=== PATIENT | female | born 1945 | race Caucasian/White ===

== ENCOUNTER → 2017-12-15 | Outpatient (CLI) | payer BC ==
[~2017-12-15] MED LIST: HYG25 PO
== END | disposition home or self-care (01) ==
LOC: C.MAMM 11:05
PROVIDERS: ATTEND Family Medicine
DX: M85.88 Other specified disorders of bone density and structure, other site (principal)

== ENCOUNTER 2021-07-13 11:51 | Observation (INO) ==
--- NOTE | 2021-07-13 12:05 | Emergency Department Note ---
Impression & Plan TIA (transient ischemic attack), Slurring of speech ED Provider Note NAME: ARCHANA VALLE AGE: 75 SEX: F : 1945 ARRIVES VIA: Ambulance INFORMANT: Patient, ED PROVIDER(S): Armando Montalvo DO CHIEF COMPLAINT: Slurred speech HPI: Patient is a 75-year-old female who presents ER for slurred speech. She was talking on the phone with her nephew when she had trouble getting her words out. The few notes all her words were slurred and she could not get out when she went to say. This lasted for about 15 to 20 minutes. Her symptoms have resolved. She denies any headache or change in vision. No chest pain or shortness of breath. No nausea vomiting or diarrhea. No dysuria urgency or frequency. No weakness or numbness. No other exacerbating or remitting factors. She never had this before. She did take an aspirin today. ROS: See above HPI for pertinent positives & negatives. A total of 10 systems reviewed and were otherwise negative. PAST MEDICAL HISTORY:See Below PAST SURGICAL HISTORY:See Below FAMILY HISTORY:See Below SOCIAL HISTORY:See Below HOME MEDICATIONS:See Below ALLERGIES:See Below VITALS:See Below PHYSICAL EXAMINATION: GENERAL: Sitting up in bed, alert, well appearing, well nourished, no distress, non-toxic EYE EXAM: normal conjunctiva. PERRL and EOM's grossly intact. OROPHARYNX: no exudate, no erythema, lips, buccal mucosa, and tongue normal and mucous membranes are moist NECK: supple, no nuchal rigidity, no adenopathy, non-tender LUNGS: Clear to auscultation. Normal chest wall mechanics HEART: no murmurs, S1 normal and S2 normal ABDOMEN: abdomen soft, non-tender, normo-active bowel sounds, no masses, no rebound or guarding. BACK: Back is symmetrical on inspection and there is no deformity, no midline tenderness, no CVA tenderness. SKIN: no rashes and no bruising UPPER EXTREMITIES: upper extremities are grossly normal. LOWER EXTREMITIES: No pitting edema. NEURO EXAM: Normal sensorium, cranial nerves II-XII intact, normal speech, no weakness of arms, no weakness of legs. No drift. Finger to nose intact. Gross sensation intact. MEDICAL DECISION MAKING: Patient is a 75-year-old female who presents the ER for slurred speech which lasted for about 15 to 30 minutes. Spoke back to baseline. NIH is 0. IV was established blood work was obtained. Labs show no significant leukocytosis or anemia. BMP along with LFTs bilirubin was unremarkable. Troponin was negative. CT head as well as angios of the head and neck were negative. Patient was updated bedside. Discussed with hospitalist for further evaluation for TIA work-up. Triage Nursing notes reviewed. Limited review of prior medical records performed Vital Signs: reviewed and remarkable for HTN Differential diagnosis: Differential Diagnosis includes but is not limited to ischemic Stroke, hemorrhagic stroke, bells palsy, mass, neoplasm, migraine headache, seizure, subarachnoid hemorrhage, TIA, and transient global amnesia. ER treatment provided: See below Diagnostics interpreted by me: ECG: Sinus rhythm rate of 79 Left axis No PVCs QTC 454 First-degree AV block Cardiac Monitoring: An order was placed for continuous cardiac monitoring. The monitor shows a rate of 81 with sinus rhythm. Laboratory studies: As stated above and show below. Imaging studies: CT angios the head and neck were negative Consultation(s): Discussed with hospital service for further evaluation Procedures: none Critical Care: None Past Med/Surg History Medical History (Updated 07/13/21 @ 13:59 by Armando Montalvo DO) Arthritis History of CVA (cerebrovascular accident) Hypercholesterolemia Hypertension Lupus TIA (transient ischemic attack) Surgical History (Updated 01/02/20 @ 14:00 by [employer] [facility]) No pertinent past surgical history Family History Other Family history non-contributory Social History Smoking Status: Never smoker Preferred Language: Turkish Feels Safe at Home: Yes Allergies Allergies Allergy/AdvReac Type Severity Reaction Status Date / Time No Known Allergies Allergy Unverified 06/21/18 13:40 Home Meds Home Medications Medication Instructions Recorded Confirmed aspirin 81 mg tablet,delayed 81 mg PO QAM 05/16/18 06/21/18 release (Aspir-Low) lisinopril 20 mg tablet (Prinivil) 20 mg PO QAM 05/16/18 06/21/18 pravastatin 20 mg tablet 20 mg PO HS 05/16/18 06/21/18 (Pravachol) cholecalciferol (vitamin D3) 25 1,000 unit PO QAM 06/18/18 06/21/18 mcg (1,000 unit) capsule (Vitamin D3) Previous Rx's Medication Instructions Recorded ondansetron 4 mg disintegrating 4 mg PO Q6H PRN #10 tab 06/21/18 tablet Results & Data (ED) Vital Signs Vital Signs - 24 hr 07/13/21 11:59 07/13/21 12:09 Temperature 36.6 C Temperature Source Oral Pulse Rate 86 Pulse Rate [Left Radial] 74 Pulse Rhythm Regular Pulse Rhythm [Left Radial] Regular Pulse Strength Normal Pulse Strength [Left Radial] Normal Respiratory Rate 18 20 Respiratory Effort / Characteristics Non-Labored Non-Labored Respiratory Depth Normal Normal Respiratory Pattern Regular Regular Blood Pressure 186/90 H Blood Pressure [Left Arm] 186/90 H Blood Pressure Mean 122 Blood Pressure Mean [Left Arm] 122 Blood Pressure Position Lying Blood Pressure Position [Left Arm] Lying Pulse Oximetry 98 96 Oxygen Delivery Method Room Air Room Air Sepsis Recent Fever Within 48 Hours No Sepsis New/Unexplained Change in Mental Status No Sepsis Action Taken by Nursing No Action Required Laboratory Data Result diagrams: 07/13/21 12:10 07/13/21 12:10 Lab Results 07/13/21 07/13/21 07/13/21 Range/Units 12:10 12:10 12:10 WBC 5.37 (4.8-10.8) K/uL RBC 5.04 (4.2-5.4) M/uL Hgb 15.5 (12.0-16.0) g/dL Hct 45.7 (37-47) % MCV 90.7 (80-100) fL MCH 30.8 (25-34) pg MCHC 33.9 (32-36) g/dL RDW Std Deviation 46.5 H (36.4-46.3) fL RDW Coeff of [place] 14.0 (11.5-14.5) % Plt Count 196 (130-400) K/uL MPV 10.4 (7.4-10.4) fL Immature Gran % (Auto) 0.2 % Neut % (Auto) 43.8 % Lymph % (Auto) 41.3 % [place] % (Auto) 8.4 % Eos % (Auto) 5.6 % Baso % (Auto) 0.7 % Neut # (Auto) 2.35 (1.4-6.5) K/uL Lymph # (Auto) 2.22 (1.2-3.4) K/uL [place] # (Auto) 0.45 (0.11-0.59) K/uL Eos # (Auto) 0.30 (0-0.5) K/uL Baso # (Auto) 0.04 (0-0.2) K/uL Immature Gran # (Auto) 0.01 (0.00-0.02) K/uL PT Cancelled INR Cancelled APTT Cancelled PTT Ratio Cancelled Sodium 140 (136-145) mmol/L Potassium 3.9 (3.5-5.1) mmol/L Chloride 104 (98-107) mmol/L Carbon Dioxide 28 (21-32) mmol/L Anion Gap 8 (3-11) BUN 18 (6-23) mg/dl Creatinine 0.86 (0.6-1.2) mg/dl Est Cr Clr Drug Dosing 66.1 ml/min Est GFR ( Amer) 75.5 ml/min Est GFR (Non-Af Amer) 65.2 ml/min BUN/Creatinine Ratio 20.9 H (10-20) Glucose 83 (70-99(Fasting)) mg/dl Calcium 9.6 (8.5-10.1) mg/dl Magnesium 1.9 (1.7-2.4) mg/dl Total Bilirubin 0.6 (0.2-1.0) mg/dl AST 22 (13-39) U/L ALT 18 (7-52) U/L Alkaline Phosphatase 116 H (34-104) U/L Troponin I < 0.03 (0-0.04) ng/ml Total Protein 7.4 (6.0-8.3) gm/dl Albumin 4.0 (3.4-5.0) gm/dl Globulin 3.4 (2.5-4.0) gm/dl Albumin/Globulin Ratio 1.2 (0.9-2) Administered Medications Discontinued Medications Ioversol (Optiray 320 125ml) 120 ml IV ONCE ONE Stop: 07/13/21 13:02 Last Admin: 07/13/21 13:02 Dose: 120 ml Documented by: [id number] Imaging Data Radiologist's Impression: Head CT 07/13/21 12:[address] DOSE: HISTORY: Slurred speech. Stroke Like Symptoms TECHNIQUE: Multiaxial CT images of the head were performed without the use of intravenous contrast. Automated exposure control was utilized for this study. A dose lowering technique was utilized adhering to the principles of ALARA. Comparison: Head CTA 08/10/2018. Findings: The paranasal sinuses and mastoid air cells are clear. The calvarium and skull base are intact. There is no mass, hematoma, midline shift, acute infarct. White matter hypodensity is nonspecific but suggestive of microvascular ischemic change. The ventricles and sulci demonstrate mild age-related i nvolutional changes. Old lacunar infarct seen within the right basal ganglia, unchanged. Impression: No significant change compared to the prior study. No acute intracranial abnormality. ACT 112: Negative or not required by law. Electronically signed by: Jose R Moss M.D. 07/13/2021 1:16 PM Head CTA 07/13/21 12:02 HEAD & NECK CTA HISTORY: Slurred speech. Stroke Like Symptoms TECHNIQUE: Multiaxial CT images of the head were performed following the intravenous administration of contrast to evaluate the major cerebral vessels. Multiaxial CT images of the neck were also performed following the intravenous administration of contrast to evaluate the major cervical vessels. Maximum intensity projection images were also obtained. A dose lowering technique was utilized adhering to the principles of ALARA. COMPARISON: Head CTA 08/10/2018. Carotid Doppler study 10/29/2011. FINDINGS: There is no mass, hematoma, midline shift, or acute infarct. Visualized intracra nial internal carotid arteries, distal vertebral arteries, and basilar artery are widely patent. There is no significant stenosis, occlusion, or aneurysm seen within the bilateral ACAs, MCAs, or dining car conductor. The major dural venous sinuses appear patent. Mild calcified plaque within the bilateral carotid siphons. The aortic arch and proximal great vessels are widely patent. There is no significant stenosis, occlusion, or dissection identified within the bilateral common carotid, internal carotid, or vertebral arteries. A 9 mm left thyroid nodule. This does not meet CT criteria for follow-up. Minimal calcified plaque within the bilateral bifurcations. Focal areas of irregularity within the mid left internal carotid artery and proximal right internal carotid artery sugges ting fibromuscular dysplasia. However, no significant stenosis IMPRESSION: 1. No significant stenosis, occlusion, or aneurysm within the [place]. 2. No significant stenosis, occlusion, or dissection identified within the carotid or vertebral arteries. 3. Focal areas of mild luminal irregularity within the mid left internal carotid artery and proximal right internal carotid artery suggesting fibromuscular dysplasia. ACT 112: Negative or not required by law. Electronically signed by: Jose R Moss M.D. 07/13/2021 1:23 PM Neck CTA 07/13/21 12:02 HEAD & NECK CTA HISTORY: Slurred speech. Stroke Like Symptoms TECHNIQUE: Multiaxial CT images of the head were performed following the intravenous administration of contrast to evaluate the major cerebral vessels. Multiaxial CT images of the neck were also performed following the intravenous administration of contrast to evaluate the major cervical vessels. Maximum intensity projection images were also obtained. A dose lowering technique was utilized adhering to the principles of ALARA. COMPARISON: Head CTA 08/10/2018. Carotid Doppler study 10/29/2011. FINDINGS: There is no mass, hematoma, midline shift, or acute infarct. Visualized intracranial internal carotid arteries, distal vertebral arteries, and basilar artery are widely patent. There is no significant stenosis, occlusion, or aneurysm seen within the bilateral ACAs, MCAs, or dining car conductor. The major dural venous sinuses appear patent. Mild calcified plaque within the bilateral carotid siphons. The aortic arch and proximal great vessels are widely patent. There is no significant stenosis, occlusion, or dissection identified within the bilateral common carotid, internal carotid, or vertebral arteries. A 9 mm left thyroid nodule. This does not meet CT criteria for follow-up. Minimal calcified plaque within the bilateral bifurcations. Focal areas of irregularity within the mid left internal carotid artery and proximal right internal carotid artery suggesting fibromuscular dysplasia. However, no significant stenosis IMPRESSION: 1. No significant stenosis, occlusion, or aneurysm within the [place]. 2. No significant stenosis, occlusion, or dissection identified within the carotid or vertebral arteries. 3. Focal areas of mild luminal irregularity within the mid left internal carotid artery and proximal right internal carotid artery suggesting fibromuscular dysplasia. ACT 112: Negative or not required by law. Electronically signed by: Jose R Moss M.D. 07/13/2021 1:23 PM Discharge Plan Visit Data Chief Complaint: Stroke/CVA Symptoms ED Provider: Armando Montalvo Discharge Problem: TIA (transient ischemic attack), Slurring of speech Forms Stand Alone Forms: [employer] Prescriptions Prescriptions: No Action ondansetron 4 mg tablet,disintegrating 4 mg PO Q6H PRN (Reason: nausea and vomiting) Qty: 10 RF: 0 lisinopril [Prinivil] 20 mg tablet 20 mg PO QAM RF: 0 aspirin [Aspir-Low] 81 mg Tablet,Delayed Release (Dr/Ec) 81 mg PO QAM RF: 0 pravastatin [Pravachol] 20 mg tablet 20 mg PO HS RF: 0 cholecalciferol (vitamin D3) [Vitamin D3] 1,000 unit Capsule 1,000 unit PO QAM RF: 0 Referrals Referrals: Marcellus Perez [Primary Care Provider] -
[2021-07-13 12:22] LABS: Basophils # (auto) 0.04 K/uL (0-0.2); Basophils % (auto) 0.7 %; Eosinophils % (auto) 5.6 %; Hematocrit (blood only) 45.7 % (37-47); Hemoglobin 15.5 g/dL (12.0-16.0); Immature Granulocytes # (auto) 0.01 K/uL (0.00-0.02); Immature Granulocytes % (auto) 0.2 %; Lymphocytes # (auto) 2.22 K/uL (1.2-3.4); Lymphocytes % (auto) 41.3 %; Mean Corpuscular Hemoglobin 30.8 pg (25-34); Mean Corpuscular Hgb Conc 33.9 g/dL (32-36); Mean Corpuscular Volume 90.7 fL (80-100); Mean Platelet Volume 10.4 fL (7.4-10.4); Monocytes # (auto) 0.45 K/uL (0.11-0.59); Monocytes % (auto) 8.4 %; Neutrophils # (auto) 2.35 K/uL (1.4-6.5); Neutrophils % (auto) 43.8 %; Platelet Count 196 K/uL (130-400); RDW Standard Deviation 46.5 fL (36.4-46.3); Red Blood Count 5.04 M/uL (4.2-5.4); White Blood Count 5.37 K/uL (4.8-10.8)
[2021-07-13 12:48] LABS: Troponin I < 0.03 ng/ml (0-0.04)
[2021-07-13 12:50] LABS: Alanine Aminotransferase 18 U/L (7-52); Albumin Globulin Ratio 1.2 (0.9-2); Alkaline Phosphatase 116 U/L (34-104); Anion Gap 8 (3-11); Aspartate Aminotransferase 22 U/L (13-39); BUN Creatinine Ratio 20.9 (10-20); Bilirubin,Total 0.6 mg/dl (0.2-1.0); Blood Urea Nitrogen 18 mg/dl (6-23); Calcium 9.6 mg/dl (8.5-10.1); Carbon Dioxide 28 mmol/L (21-32); Chloride 104 mmol/L (98-107); Creatinine Clr Calc Pharmacy 66.1 ml/min; Est GFR (African American) 75.5 ml/min; Est GFR (Non-African American) 65.2 ml/min; Globulin 3.4 gm/dl (2.5-4.0); Glucose 83 mg/dl (70-99(Fasting)); Magnesium 1.9 mg/dl (1.7-2.4); Potassium 3.9 mmol/L (3.5-5.1); Sodium 140 mmol/L (136-145); Total Protein 7.4 gm/dl (6.0-8.3)
[2021-07-13] MEDS ORDERED: OPTIRAY 320 125ml IV ONE (13:01)
--- NOTE | 2021-07-13 13:17 | CT Scan Report ---
HEAD CT NONCONTRAST CT DOSE: HISTORY: Slurred speech. Stroke Like Symptoms TECHNIQUE: Multiaxial CT images of the head were performed without the use of intravenous contrast. A utomated exposure control was utilized for this study. A dose lowering technique was utilized adheri ng to the principles of ALARA. Comparison: Head CTA 08/10/2018. Findings: The paranasal sinuses and mastoid air cells are clear. The calvarium and skull base are int act. There is no mass, hematoma, midline shift, acute infarct. White matter hypodensity is nonspecifi c but suggestive of microvascular ischemic change. The ventricles and sulci demonstrate mild age-rela daria involutional changes. Old lacunar infarct seen within the right basal ganglia, unchanged. Impression: No significant change compared to the prior study. No acute intracranial abnormality. ACT 112: Negative or not required by law. Electronically signed by: Jose R Moss M.D. 07/13/2021 1:16 PM
--- NOTE | 2021-07-13 13:24 | CT Scan Report ---
HEAD & NECK CTA HISTORY: Slurred speech. Stroke Like Symptoms TECHNIQUE: Multiaxial CT images of the head were performed following the intravenous administration o f contrast to evaluate the major cerebral vessels. Multiaxial CT images of the neck were also perform ed following the intravenous administration of contrast to evaluate the major cervical vessels. Maxim um intensity projection images were also obtained. A dose lowering technique was utilized adhering to the principles of ALARA. COMPARISON: Head CTA 08/10/2018. Carotid Doppler study 10/29/2011. FINDINGS: There is no mass, hematoma, midline shift, or acute infarct. Visualized intracranial internal carotid arteries, distal vertebral arteries, and basilar artery are widely patent. There is no significant s tenosis, occlusion, or aneurysm seen within the bilateral ACAs, MCAs, or computer laboratory technician. The major dural venous sinuses appear patent. Mild calcified plaque within the bilateral carotid siphons. The aortic arch and proximal great vessels are widely patent. There is no significant stenosis, occ lusion, or dissection identified within the bilateral common carotid, internal carotid, or vertebral arteries. A 9 mm left thyroid nodule. This does not meet CT criteria for follow-up. Minimal calcified plaque within the bilateral bifurcations. Focal areas of irregularity within the mid left internal c arotid artery and proximal right internal carotid artery suggesting fibromuscular dysplasia. However, no significant stenosis IMPRESSION: 1. No significant stenosis, occlusion, or aneurysm within the [place]. 2. No significant stenosis, occlusion, or dissection identified within the carotid or vertebral arter ies. 3. Focal areas of mild luminal irregularity within the mid left internal carotid artery and proximal right internal carotid artery suggesting fibromuscular dysplasia. ACT 112: Negative or not required by law. Electronically signed by: Jose R Moss M.D. 07/13/2021 1:23 PM
--- NOTE | 2021-07-13 13:24 | CT Scan Report ---
HEAD & NECK CTA HISTORY: Slurred speech. Stroke Like Symptoms TECHNIQUE: Multiaxial CT images of the head were performed following the intravenous administration o f contrast to evaluate the major cerebral vessels. Multiaxial CT images of the neck were also perform ed following the intravenous administration of contrast to evaluate the major cervical vessels. Maxim um intensity projection images were also obtained. A dose lowering technique was utilized adhering to the principles of ALARA. COMPARISON: Head CTA 08/10/2018. Carotid Doppler study 10/29/2011. FINDINGS: There is no mass, hematoma, midline shift, or acute infarct. Visualized intracranial internal carotid arteries, distal vertebral arteries, and basilar artery are widely patent. There is no significant s tenosis, occlusion, or aneurysm seen within the bilateral ACAs, MCAs, or electronics worker. The major dural venous sinuses appear patent. Mild calcified plaque within the bilateral carotid siphons. The aortic arch and proximal great vessels are widely patent. There is no significant stenosis, occ lusion, or dissection identified within the bilateral common carotid, internal carotid, or vertebral arteries. A 9 mm left thyroid nodule. This does not meet CT criteria for follow-up. Minimal calcified plaque within the bilateral bifurcations. Focal areas of irregularity within the mid left internal c arotid artery and proximal right internal carotid artery suggesting fibromuscular dysplasia. However, no significant stenosis IMPRESSION: 1. No significant stenosis, occlusion, or aneurysm within the [place]. 2. No significant stenosis, occlusion, or dissection identified within the carotid or vertebral arter ies. 3. Focal areas of mild luminal irregularity within the mid left internal carotid artery and proximal right internal carotid artery suggesting fibromuscular dysplasia. ACT 112: Negative or not required by law. Electronically signed by: Jose R Moss M.D. 07/13/2021 1:23 PM
--- NOTE | 2021-07-13 14:30 | History & Physical Report ---
Date of Service July 13, 2021 Assessment & Plan (1) TIA (transient ischemic attack): Plan: Patient symptoms with quick resolution of deficits most consistent with a TIA - ABCD2 score - III - BP is elevated- will follow - she does have history hypertensive encephalopa thy - Lipid panel in the morning- consider transitioning to high intensity statin - Continue asa - MRI - ECHO with bubble - PT/OT eval - Neuro checks q4 - Follow blood glucose checks Ac/HS- (2) Slurring of speech: Plan: As above- predominant symptom following reported expressive aphasia - this is currently resolved- follow symptoms along with BP (3) HTN (hypertension): Plan: BP on arrival was 186/90 - Overall goal for her would be <140 - follow overnight and may need medication adjustments (4) HLD (hyperlipidemia): Plan: As above History of Present Illness Primary Care Provider: Marcellus Perez 75 YOF with past medical history of: HTN, HLD, Encephalopathy from HTN vs. TIA (2011), arthritis. Patient comes to the hospital today via EMS for concerns of CVA. Around 1030 this morning patient was on phone with her daughter where she was noticing that she was having difficulty getting words to come out followed by slurring of speech. The patient's daughter called 911 and by the time they got there the patient symptoms have resolved. The patient reports that she was able to get up while waiting for EMS to get there that she went out and watered her plants. She feels that she is back to her normal self at this time. In the EMD the patient had CTA of the head and neck and CT of the head done. These were all negative for dissection, stenosis or occlusion. Hospitalist was consulted for admission. Patient will be admitted for continued TIA vs. CVA workup. ECHO, MRI, awaiting Urine sample to rule out mimics for completeness. Her glucose was normal as well as the remaining CBC and BMP. She reports only new medications as Mirtazapine for sleep that was recently increased to 15mg. Patient currently without any neurological deficits. Allergies Allergy/AdvReac Type Severity Reaction Status Date / Time No Known Allergies Allergy Verified 07/13/21 15:45 Home Medications Medication Instructions Recorded Confirmed Type cholecalciferol (vitamin D3) 25 2,000 unit PO QAM 06/18/18 07/13/21 History mcg (1,000 unit) capsule (Vitamin D3) aspirin 81 mg tablet,delayed 81 mg PO QAM 07/13/21 07/13/21 History release atorvastatin 20 mg tablet 20 mg PO HS 07/13/21 07/13/21 History doxycycline hyclate 50 mg capsule 50 mg PO BID 07/13/21 07/13/21 History losartan 50 mg tablet 50 mg PO QAM 07/13/21 07/13/21 History mirtazapine 15 mg tablet 15 mg PO HS 07/13/21 07/13/21 History Past Med/Surg History Medical History (Updated 07/13/21 @ 14:37 by CONSTANCE Hinton) Arthritis History of CVA (cerebrovascular accident) Hypercholesterolemia Hypertension Lupus TIA (transient ischemic attack) Surgical History No pertinent past surgical history Family History Other Family history non-contributory Social History Smoking Status: Never smoker Hx Alcohol Use: No Hx Substance Use: No Preferred Language: Yoruba Communication Ability: Effective Information Systems Supervisor Required: No Beliefs That Will Affect Care: None Current Living Situation: Alone Other Information That Helps Us Care for You: No Feels Safe at Home: Yes Safety Concerns: Feels Safe At This Time Assistive Devices: Denture - Upper and Denture - Lower Review of Systems Review of Systems: REVIEW OF SYSTEMS: Constitutional: No fever, sweats or chills Eyes: No diplopia, no worsening or blurred vision ENT: normal hearing, no trouble swallowing Respiratory: No cough, sputum, dyspnea at rest or on exertion Cardiovascular: (HTN) No chest pain, tightness or palpitations Abdomen: No pain, nausea, vomiting, diarrhea or constipation Musculoskeletal: No joint pain, calf pain, swelling Neurologic: (+) expressive aphasia and slurring of words (resoloved), No weakness, numbness/tingling, or balance problems Psychiatric: No anxiety or depression Skin: No rash or itch Physical Exam Physical Exam: PHYSICAL EXAM: General: awake, alert, no apparent distress Head: Normocephalic, atraumatic ENT: PERRL, EOMI, no pharyngeal exudate, mucous membranes moist Neuro: AAO x 3, speech clear and appropriate, strength intact bilaterally 5/5, sensation intact and equal all extremities and dermatomes, no pronator drift, no facial droop, no ataxia, no speech or word finding issues. Chest: equal rise and fall of the chest, no accessory muscle use, no heaves or thrills, Clear to auscultation, on room air, Cardiac: Regular rate and rhythm, telemetry reviewed, skin warm dry, cap refill <3 seconds, peripheral pulses +2 no JVD, no murmur, no edema GI: NABS x 4 quadrants, soft, nontender to palpation, no rebound, guarding or tenderness : Spontaneously voiding, no pain, no CVA tenderness, Extremities: Normal inspection, no peripheral edema or erythema, calfs nontender to palpation Psych: Normal mood and affect Results & Data Results & Data ([facility]) Vital Signs (Past 12 Hours) Vital Signs Temp Pulse Pulse Resp BP BP Pulse Ox 07/13/21 14:00 92 H 20 167/98 H 98 07/13/21 12:09 74 20 186/90 H 96 07/13/21 11:59 36.6 C 86 18 186/90 H 98 Laboratory Results Abnormal lab results 07/13/21 07/13/21 Range/Units 12:10 12:10 RDW Std Deviation 46.5 H (36.4-46.3) fL BUN/Creatinine Ratio 20.9 H (10-20) Alkaline Phosphatase 116 H (34-104) U/L Diagnostic Findings Head CT 07/13/21 12:[address] DOSE: HISTORY: Slurred speech. Stroke Like Symptoms TECHNIQUE: Multiaxial CT images of the head were performed without the use of intravenous contrast. Automated exposure control was utilized for this study. A dose lowering technique was utilized adhering to the principles of ALARA. Comparison: Head CTA 08/10/2018. Findings: The paranasal sinuses and mastoid air cells are clear. The calvarium and skull base are intact. There is no mass, hematoma, midline shift, acute infarct. White matter hypodensity is nonspecific but suggestive of microvascular ischemic change. The ventricles and sulci demonstrate mild age-related involutional changes. Old lacunar infarct seen within the right basal ganglia, unchanged. Impression: No significant change compared to the prior study. No acute intracranial abnormality. ACT 112: Negative or not required by law. Electronically signed by: Jose R Moss M.D. 07/13/2021 1:16 PM Head CTA 07/13/21 12:02 HEAD & NECK CTA HISTORY: Slurred speech. Stroke Like Symptoms TECHNIQUE: Multiaxial CT images of the head were performed following the intravenous administration of contrast to evaluate the major cerebral vessels. M ultiaxial CT images of the neck were also performed following the intravenous administration of contrast to evaluate the major cervical vessels. Maximum intensity projection images were also obtained. A dose lowering technique was utilized adhering to the principles of ALARA. COMPARISON: Head CTA 08/10/2018. Carotid Doppler study 10/29/2011. FINDINGS: There is no mass, hematoma, midline shift, or acute infarct. Visualized intracranial internal carotid arteries, distal vertebral arteries, and basilar artery are widely patent. There is no significant stenosis, occlusion, or aneurysm seen within the bilateral ACAs, MCAs, or bar gauger and lubricator tender. The major dural venous sinuses appear patent. Mild calcified plaque within the bilateral carotid siphons. The aortic arch and proximal great vessels are widely patent. There is no significant stenosis, occlusion, or dissection identified within the bilateral common carotid, internal carotid, or vertebral arteries. A 9 mm left thyroid nodule. This does not meet CT criteria for follow-up. Minimal calcified plaque within the bilateral bifurcations. Focal areas of irregularity within the mid left internal carotid artery and proximal right internal carotid artery suggesting fibromuscular dysplasia. However, no significant stenosis IMPRESSION: 1. No significant stenosis, occlusion, or aneurysm within the [place]. 2. No significant stenosis, occlusion, or dissection identified within the carotid or vertebral arteries. 3. Focal areas of mild luminal irregularity within the mid left internal carotid artery and proximal right internal carotid artery suggesting fibromuscular dysplasia. ACT 112: Negative or not required by law. Electronically signed by: Jose R Moss M.D. 07/13/2021 1:23 PM Neck CTA 07/13/21 12:02 HEAD & NECK CTA HISTORY: Slurred speech. Stroke Like Symptoms TECHNIQUE: Multiaxial CT images of the head were performed following the intravenous administration of contrast to evaluate the major cerebral vessels. Multiaxial CT images of the neck were also performed following the intravenous administration of contrast to evaluate the major cervical vessels. Maximum intensity projection images were also obtained. A dose lowering technique was utilized adhering to the principles of ALARA. COMPARISON: Head CTA 08/10/2018. Carotid Doppler study 10/29/2011. FINDINGS: There is no mass, hematoma, midline shift, or acute infarct. Visualized intracranial internal carotid arteries, distal vertebral arteries, and basilar artery are widely patent. There is no significant stenosis, occlusion, or aneurysm seen within the bilateral ACAs, MCAs, or bar gauger and lubricator tender. The major dural venous sinuses appear patent. Mild calcified plaque within the bilateral carotid siphons. The aortic arch and proximal great vessels are widely patent. There is no significant stenosis, occlusion, or dissection identified within the bilateral common carotid, internal carotid, or vertebral arteries. A 9 mm left thyroid nodule. This does not meet CT criteria for follow-up. Minimal calcified plaque within the bilateral bifurcations. Focal areas of irregularity within the mid left internal carotid artery and proximal right internal carotid artery suggesting fibromuscular dysplasia. However, no significant stenosis IMPRESSION: 1. No significant stenosis, occlusion, or aneurysm within the [place]. 2. No significant stenosis, occlusion, or dissection identified within the carotid or vertebral arteries. 3. Focal areas of mild luminal irregularity within the mid left internal carotid artery and proximal right internal carotid artery suggesting fibromuscular dysplasia. ACT 112: Negative or not required by law. Electronically signed by: Jose R Moss M.D. 07/13/2021 1:23 PM Medications Administered Discontinued Medications Ioversol (Optiray 320 125ml) 120 ml IV ONCE ONE Stop: 07/13/21 13:02 Last Admin: 07/13/21 13:02 Dose: 120 ml Documented by: [id number] ECG Additional Comments: Sinus rhythm with Premature atrial complexes Left axis deviation Low voltage QRS Cannot rule out Anterior infarct (cited on or before 29-OCT-2011) Nonspecific T wave abnormality Abnormal ECG When compared with ECG of 18-JUN-2018 16:22, [place] interval has decreased Code Status & VTE Plan Code Status CODE: FULL VTE: SCDS, ambulation VTE Prophylaxis Plan VTE Prophylaxis will be ordered: Yes Supervising Physician Co-Signing Physician Notes SHACKLER Supervision note: I have personally seen and examined the patient and discussed and verified the benson points of the history and physical along with the plan with CONSTANCE Quinn with the following exceptions and/or additions: This patient is a 75-year-old female with a history of HTN, hyperlipidemia, who presents to the ER with expressive aphasia and slurred speech that lasted maybe 15 minutes earlier today and is associated with mild headache. Symptoms have been completely resolved since that time No other symptoms. She has never had anything like this before. History and ROS reviewed as above Vitals reviewed Gen: AAOx3, NAD HEENT: Anicteric sclerae, EOMI CV: RRR no mgr nl S1S2 Pulm: CTAB no wcr Abd: +BS soft NT ND no masses or hernias Ext: No edema Skin: No rashes, warm/dry Neuro: [full strength throughout, CN II through XII intact Labs and rads reviewed, ECG reviewed 75-year-old female here with TIA With high risk TIA with ABCD score 3-4 depending on time course varying of the length of symptoms Admit for telemetry monitoring, echo with bubble study, lipid panel, A1c, PT/OT consults, MRI brain Continue aspirin and will check lipid panel and may increase atorvastatin to hig h intensity for tomorrow PG Care Time/CCT Total # of Minutes Spent Total Time Spent with Patient: Total time spent is greater than 50% in coordination of care (as documented) at patient's floor/unit and/or counseling patient: Coding Level of Care Code 55126 Initial Inpt Care Lvl 2 Diagnoses TIA (transient ischemic attack) G45.9 Slurring of speech R47.81 HTN (hypertension) I10 HLD (hyperlipidemia) E78.5
[2021-07-13 14:32] LABS: INR 1.1 (0.9-1.1); Partial Thromboplastin Ratio 0.9; Partial Thromboplastin Time 26.1 Seconds (21.0-31.0); Prothrombin Time 11.4 Seconds (9.0-12.0)
--- NOTE | 2021-07-13 16:04 | Magnetic Resonance Report ---
Brain MRI WITHOUT CONTRAST HISTORY: Slurred speech. Resolving neurological symptoms- eval for CVA TECHNIQUE: Multiplanar multisequence MRI of the brain was performed without the use of contrast. COMPARISON STUDY: Head CT 07/13/2021. FINDINGS: There is no mass, hematoma, midline shift, or acute infarct. The paranasal sinuses are magdalena r. The mastoid air cells are clear. The ventricles and sulci demonstrate mild age-related involutiona l changes. Scattered foci of T2 hyperintensity seen within the periventricular and subcortical white matter are nonspecific but suggestive of mild microvascular ischemic changes. The major vascular flow voids at the skull base are well-maintained. IMPRESSION: No acute intracranial abnormality. Scattered foci of T2 hyperintensity seen within the periventricula r and subcortical white matter are nonspecific but favor microvascular ischemic change. ACT 112: Negative or not required by law. Electronically signed by: Jose R Moss M.D. 07/13/2021 4:03 PM
[2021-07-13] MEDS ORDERED: ENOXAPARIN INJ 40 MG/0.4 ML SYR SQ SCH (17:30)
[2021-07-13 18:29] LABS: Appearance Urine Clear (Clear); Bacteria Urine Automated Negative (Negative); Bilirubin Urine Negative (Negative); Blood Urine Trace (Negative); Color Urine Yellow; Epithelial Cell Urine Auto >30 /lpf (0-5); Glucose Urine UA Negative (Negative); Ketones Urine Negative (Negative); Leukocyte Esterase Urine 1+ (Negative); Nitrite Urine Negative (Negative); Protein Urine Negative (Negative); RBC Urine Automated 0-4 /hpf (0-4); Specific Gravity Urine > 1.045 (1.000-1.030); Urobilinogen Urine Negative (Negative); pH Urine 6.5 (4.5-7.5)
[2021-07-13] MEDS ORDERED: PRAVASTATIN SOD 20 MG TAB PO SCH (21:00)
[2021-07-13] MEDS ORDERED: ATORVASTATIN 20 MG TAB PO SCH (21:00)
[2021-07-13] MEDS: DOXYCYCLINE HYCLATE 50 MG CAP PO SCH (21:09)
[2021-07-14 06:27] LABS: Basophils # (auto) 0.04 K/uL (0-0.2); Basophils % (auto) 0.7 %; Eosinophils # (auto) 0.34 K/uL (0-0.5); Eosinophils % (auto) 6.1 %; Hematocrit (blood only) 44.6 % (37-47); Lymphocytes # (auto) 2.41 K/uL (1.2-3.4); Lymphocytes % (auto) 43.3 %; Mean Corpuscular Hemoglobin 30.6 pg (25-34); Mean Corpuscular Hgb Conc 33.6 g/dL (32-36); Mean Platelet Volume 10.1 fL (7.4-10.4); Monocytes # (auto) 0.63 K/uL (0.11-0.59); Monocytes % (auto) 11.3 %; Neutrophils # (auto) 2.15 K/uL (1.4-6.5); Neutrophils % (auto) 38.6 %; Platelet Count 188 K/uL (130-400); RDW Standard Deviation 46.7 fL (36.4-46.3); White Blood Count 5.57 K/uL (4.8-10.8)
[2021-07-14 06:50] LABS: BUN Creatinine Ratio 20.9 (10-20); Calcium 8.7 mg/dl (8.5-10.1); Chol HDL Ratio 2.6 (0-5); Est GFR (African American) 75.5 ml/min; Est GFR (Non-African American) 65.2 ml/min; Magnesium 1.9 mg/dl (1.7-2.4); Potassium 3.8 mmol/L (3.5-5.1)
[2021-07-14] MEDS: DOXYCYCLINE HYCLATE 50 MG CAP PO SCH (07:49)
--- NOTE | 2021-07-14 08:44 | XCELERA ---
[id number] \\[id number]
[2021-07-14] MEDS ORDERED: lisinopril 20 MG TAB PO SCH (09:00)
[2021-07-14] MEDS ORDERED: CHOLECALCIFEROL 1,000 UNITS 25 MCG TAB PO SCH (09:00)
[2021-07-14] MEDS ORDERED: LOSARTAN POTASSIUM 50 MG TAB PO SCH (09:00)
[2021-07-14] MEDS ORDERED: ASPIRIN 81 MG ECTAB PO SCH (09:00)
--- NOTE | 2021-07-14 09:22 | Electrocardiogram Report ---
Test Reason : Blood Pressure : / mmHG Vent. Rate : 079 BPM Atrial Rate : 079 BPM P-R Int : 210 ms QRS Dur : 092 ms QT Int : 396 ms P-R-T Axes : 040 -43 027 degrees QTc Int : 454 ms Sinus rhythm with 1st degree A-V block Left axis deviation Abnormal ECG When compared with ECG of 21-JUN-2018 12:45, Premature atrial complexes are no longer Present VA interval has increased Nonspecific T wave abnormality no longer evident in Anterior leads Confirmed by Ben Ribeiro ([id number]) on 07/14/2021 9:22:30 AM Referred By: REFERRED SELF Confirmed By:Ben Ribeiro
[2021-07-14] MEDS ORDERED: CLOPIDOGREL BISULFATE 75 MG TAB PO STA (11:16)
--- NOTE | 2021-07-14 11:31 | Discharge Summary ---
Date of Service July 14, 2021 Admission HPI Per Admitting Provider 75 YOF with past medical history of: HTN, HLD, Encephalopathy from HTN vs. TIA (2011), arthritis. Patient comes to the hospital today via EMS for concerns of CVA. Around 1030 this morning patient was on phone with her daughter where she was noticing that she was having difficulty getting words to come out followed by slurring of speech. The patient's daughter called 911 and by the time they got there the patient symptoms have resolved. The patient reports that she was able to get up while waiting for EMS to get there that she went out and watered her plants. She feels that she is back to her normal self at this time. In the EMD the patient had CTA of the head and neck and CT of the head done. These were all negative for dissection, stenosis or occlusion. Hospitalist was consulted for admission. Patient will be admitted for continued TIA vs. CVA workup. ECHO, MRI, awaiting Urine sample to rule out mimics for completeness. Her glucose was normal as well as the remaining CBC and BMP. She reports only new medications as Mirtazapine for sleep that was recently increased to 15mg. Patient currently without any neurological deficits. Principal Diagnosis TIA Discharge Exam Constitutional WD/WN, vitals as above Eyes PERRL, conjunctivae normal, anicteric sclerae ENMT external ear and nose normal, oropharynx normal Neck trachea midline, no thyromegaly Respiratory normal respiratory effort, lungs clear to auscultation Cardiovascular RRR, no murmur, no edema Chest (Breasts) Chest: normal inspection of chest Gastrointestinal (Abdomen) normal bowel sounds, soft, nontender, no hepatosplenomegaly Musculoskeletal Extremities: extremities normal to inspection; no cyanosis and no clubbing Skin no rashes, warm and dry Neurologic PERRL, EOMI, accommodation nl, no face palsy, no dysarthria moves all extremities and awake; no focal motor deficits Speech / Cognition: no expressive aphasia and normal cognition Psychiatric A+Ox3, euthymic affect Lymphatic no lymphedema Discharge Data Allergies Allergy/AdvReac Type Severity Reaction Status Date / Time No Known Allergies Allergy Verified 07/13/21 15:45 Consultations 07/13/21 13:45 ED Decision to Admit Stat 07/14/21 08:22 Consult LRAISSA grain unloader machine Routine Ordered Studies 07/13/21 12:02 CT angio head w con Stat CT angio neck with con Stat CT head/brain wo con Stat 07/13/21 13:54 MR brain wo con Routine ECHO Hospital Course (1) TIA (transient ischemic attack): Patient symptoms with quick resolution of deficits most consistent with a TIA - ABCD2 score - 4 --> high risk TIA CTA head/neck with evidence of fibromuscular dysplasia but no stenoses MRI brain neg for stroke but shows microvascular ischemic change ECHO neg bubble study, no thrombus, mild RV dilation, preserved EF Hemoglobin A1C pending at time of discharge and can be followed up on by PCP after discharge - BP was elevated on arrival- improved now but not at goal- she does have history hypertensive encephalopathy - Lipid panel controlled but given TIA, will increase atorvastatin high intensity statin to atorva 40mg - Continue asa and add Plavix x 21 days, then dc ASA after that and remain on Plavix monotherapy -increase losartan to 100mg daily, asked her to check BPs at home -will make arrangements for cardiac event monitor after discharge x 30 days for occult Afib monitoring-order placed to Nurse Navigator (2) Slurring of speech: As above- predominant symptom following reported expressive aphasia - this is currently resolved-no further sxs after admission (3) HTN (hypertension): BP on arrival was 186/90 - Overall goal for her would be <140 -increase losartan to 100mg daily on discharge (4) HLD (hyperlipidemia): increasing statin dose as above DVT proph-Lovenox Dispo-dc to home PT/OT no needs identified Total Time Total Time Spent Total Time Spent (In Minutes): 35 min Discharge Plan Discharge Items Patient Disposition: Home - Self-Care Reason For Visit: TIA VS CVA Discharge Diagnosis: TIA Condition on Discharge: Good Activity: Resume your previous activity Non-emergency contact: Primary Care Provider Call non-emergency contact if: you have any medication questions and your symptoms worsen Follow-up/Referrals: Marcellus Perez [Primary Care Provider] - (Follow up within 1-2 weeks.) Diet: Heart Healthy Addtl Attending Provider Instructions: You were admitted for a transient ischemic attack (TIA). Fortunately this resolved, but you are at higher risk for future strokes because of this. You will need to take Plavix as a blood thinner ALONG WITH YOUR ASPIRIN 81mg daily for the next 21 days, and then STOP the aspirin and continue to take PLAVIX by itself every day. Your blood pressure needs better control and your losartan dose was increased to 100mg daily. Please check your blood pressure at home daily and keep a log of your readings to take to your doctor. Your cholesterol medication was also increased to atorvastatin 40mg daily also to prevent future stroke. Please exercise and follow a heart healthy or Mediterranean diet as well. Limit alcohol intake and you should never smoke cigarettes. A cardiac event monitor will be arranged and sent to your house for you to wear to look for irregular heart rhythms that can lead to TIAs/strokes.This will have instructions with it on what to do. Risk Factors for Stroke: You can reduce your chances of stroke by working with your medical provider to adopt a healthy lifestyle. Some specific ways to lower your chance of stroke are: * If you are a smoker, now is the time to stop smoking cigarettes * If you are diabetic, improve the control of your blood sugars * Avoid excessive amounts of alcohol * Control high blood pressure * Lose weight if you are overweight * Be sure to lead an active lifestyle * Eat a healthy diet low in salt, cholesterol and fat You should know about other risk factors for stroke that you are unable to control. These include: * Age 55 years or older * Male gender * Certain racial groups: , or / * Family History of Stroke, Mini stroke or Heart Attack * Sickle Cell Disease Follow Up: It is important for you to keep your follow up appointments with your medical provider. Who to Call and When: Medical Emergencies: Call 911 immediately if you experience any of the follo wing warning signs and symptoms of Stroke: * Sudden numbness or weakness of the face, arm or leg, especially on one side of the body * Sudden confusion, trouble speaking or understanding * Sudden trouble seeing in one or both eyes * Sudden trouble walking, dizziness, loss of balance or coordination * Sudden severe headache with no cause Do not delay calling 911 if you experience any warning signs or symptoms of a stroke. Delay in seeking medical attention may affect what treatments can be given to you. . Pending Studies at Discharge: Yes (Hemoglobin A1C, Urine culture) Stand-Alone Forms: My [facility], Smoking Cessation Medications and DC Order Prescriptions: New atorvastatin 40 mg Tablet 40 mg PO HS Qty: 30 RF: 0 losartan 100 mg tablet 100 mg PO DAILY Qty: 30 RF: 0 clopidogrel [Plavix] 75 mg tablet 75 mg PO DAILY Qty: 30 RF: 0 Continued cholecalciferol (vitamin D3) [Vitamin D3] 1,000 unit Capsule 2,000 unit PO QAM RF: 0 doxycycline hyclate 50 mg capsule 50 mg PO BID RF: 0 mirtazapine 15 mg tablet 15 mg PO HS RF: 0 aspirin 81 mg Tablet,Delayed Release (Dr/Ec) 81 mg PO QAM Qty: 21 RF: 0 Discontinued atorvastatin 20 mg tablet 20 mg PO HS RF: 0 losartan 50 mg tablet 50 mg PO QAM RF: 0 Discharge Orders: Discharge Order (Routine); Ordered 07/14/21 Ordered By: Lucy Chun Admission Data Admit Date/Time: 07/13/21 14:20 Attending Provider: Lucy Chun Admit Provider: Lucy Chun Primary Care Provider: Marcellus Perez Other Providers: Lucy Chun Coding Level of Care Code D/C DAY MANAGEMENT >30 MINS Diagnoses TIA (transient ischemic attack) G45.9 Slurring of speech R47.81 HTN (hypertension) I10 HLD (hyperlipidemia) E78.5
[2021-07-14] MEDS ORDERED: ATORVASTATIN 40 MG TAB PO SCH (21:00)
[2021-07-15 08:57] LABS: Estimated Average Glucose 123 mg/dl; Hemoglobin A1C 5.9 % (4.5-5.6)
== END 2021-07-14 12:55 | disposition home or self-care (01) | DRG 69 ==
LOC: ED 11:51 → INTOOBSV 14:20 → 2N 14:20

== ENCOUNTER 2023-10-25 01:47 | Observation (INO) ==
--- OUTSIDE RECORDS SUMMARY | 2023-10-25 01:51 | External Medical Summary | Continuity of Care Document ---
Author Name Unknown Organization [facility] [address] [place] [address] 207 Address [facility] [id number] Care Team Providers Care Dietitian Consultant Name Role Phone Marcellus Perez Primary Care Physician [phone] Encounter [facility] [id number] Date(s): 07/29/23 - 07/29/23 [facility] 207 [facility] [address] [facility] [address] [place] [address] [phone] Encounter Diagnosis HTN (hypertension)(Discharge Diagnosis) - 07/29/23 Depression(Discharge Diagnosis) - 07/29/23 Hyperlipidemia(Discharge Diagnosis) - 07/29/23 History of TIA (transient ischemic attack)(Discharge Diagnosis) - 07/29/23 Obesity(Discharge Diagnosis) - 07/29/23 Ear bleeding(Discharge Diagnosis) - 07/29/23 Rosacea, acne(Discharge Diagnosis) - 07/29/23 Discharge Disposition: Home or Self Care Attending Physician: MD Perez Dongsheng Allergies, Adverse Reactions, Alerts Substance Reaction Severity Status lisinopril cough Active amLODIPine leg swelling Active Assessment and Plan Extracted from: Title:Office Visit Note Author:MD Perez Dongsh eng Date:07/29/23 1.HTN (hypertension) STATUS: Chronic stable: x DATA: Review of prior external note(s) from each unique source: Review of the result(s) of each unique test: x Ordering of each unique test: x Assessment requiring independent historian(s): GOAL: BP <140/90 PLAN: Home BP advised. continue Losartan. DASH and exercise. labs ordered. 2.Depression STATUS: Chronic, stable w/o med DATA: Labs reviewed GOAL: Resolution PLAN: Lexapro - did not help. stopped Mirtazapine. Continue exercise and light exposure. 3.Hyperlipidemia STATUS: Chronic stable: x at [facility] DATA: Review of prior external note(s) from each unique source: Review of the result(s) of each unique test: x Ordering of each unique test: x GOAL: prevent ASCVD/LDL<70 PLAN: continue Crestor. WT loss. Diet and exercise. labs ordered 4.History of TIA (transient ischemic attack) STATUS: Chronic stable: x DATA: Review of prior external note(s) from each unique source: Review of the result(s) of each unique test: x Ordering of each unique test:x GOAL: prevent ASCVD PLAN:continue Crestor and plavix. Avoid NSAIDs. nondrinker.f/u neurology - referred back again. Fall prevention. labs ordered 5.Obesity STATUS: Chronic stable: Chronic uncontrolled: x Acute uncomplicated: Acute illness with systemic symptoms: Undiagnosed new problems with uncertain prognosis: Chronic illnesses with exacerbation, progression, or side effects of treatment: 1 acute complicated injury: DATA: Review of prior external note(s) from each unique source: Review of the result(s) of each unique test: x Ordering of each unique test: x Assessment requiring independent historian(s): GOAL: 5% loss PLAN: diet and exercise. declined med and referral. declined sleep study. labs ordered. 6.Ear bleeding STATUS: Chronic stable: Chronic uncontrolled: Acute uncomplicated: x Acute illness with systemic symptoms: Undiagnosed new problems with uncertain prognosis: Chronic illnesses with exacerbation, progression, or side effects of treatment: 1 acute complicated injury: DATA: Review of prior external note(s) from each unique source: Review of the result(s) of each unique test: Ordering of each unique test: Assessment requiring independent historian(s): GOAL: Resolution PLAN: will adjust use of hearing aid. 7.Rosacea, acne STATUS: Chronic stable: x Chronic uncontrolled: Acute uncomplicated: Acute illness with systemic symptoms: Undiagnosed new problems with uncertain prognosis: Chronic illnesses with exacerbation, progression, or side effects of treatment: 1 acute complicated injury: DATA: Review of prior external note(s) from each unique source: Review of the result(s) of each unique test: Ordering of each unique test: Assessment requiring independent historian(s): GOAL: Reduce symptoms PLAN: in remission now. stopped doxy. saw derm call prn. f/u 4 mos Time spent: Pre-visit planning/chart review: 5 minutes Ewkf-qy-kwxc visit: 25 minutes Post-visit documentation: minutes Care coordination: minutes Time spent on disease management/counseling in addition to CPE/AWV/WCC: minutes Total visit time: 30 minutes Immunizations Given and Recorded Vaccine Date Status Refusal Reason pneumococcal 23-valent vaccine 08/27/15 Given tetanus/diphtheria/pertuss, acel (Tdap) 06/11/11 G iven Medications clopidogrel 75 mg oral tablet Start: 07/29/23 13:11:00 EDT, 1 tab, PO, Daily, Disp# 90 tab, Refills: 3, Pharmacy: [facility] Start Date: 07/29/23 Status: Ordered Coenzyme Q10 200 mg oral capsule Start: 09/20/21 10:12:00 EDT, See Instructions, Disp# 30 cap, 1 tab PO Daily, other Start Date: 09/20/21 Status: Ordered Crestor 20 mg oral tablet Start: 07/29/23 13:11:00 EDT, 1 tab, PO, qhs, Disp# 90 tab, Refills: 3, Pharmacy: [facility] Start Date: 07/29/23 Stop Date: 07/23/24 Status: Ordered doxycycline hyclate 50 mg oral capsule Start: 11/17/22 8:45:00 EDT, See Instructions, Disp# 90 cap, Refills: 2, TAKE 1 CAPSULE 2 TIMES DAILY WITH FOOD, Pharmacy: [facility] Start Date: 11/17/22 Status: Ordered losartan 100 mg oral tablet Start: 07/29/23 13:10:00 EDT, 1 tab, PO, Daily, Disp# 90 tab, Refills: 3, Pharmacy: [facility] Start Date: 07/29/23 Stop Date: 07/23/24 Status: Ordered Shingrix intramuscular injection Start: 04/01/23 8:51:00 EST, 0.5 mL, IM, ONCE, Disp# 0.5 mL, Refills: 1, repeat dose in 2 to 6 months, Pharmacy: [id number] Start Date: 04/01/23 Status: Ordered Tetanus toxoids-Diphtheria, Adult (Td) 2 units-2 units/0.5 mL intramuscular suspension Start: 04/01/23 8:51:00 EST, 0.5 mL, IM, ONCE, Disp# 0.5 mL, Note to Pharmacy: okay to do TDaP if TD is not available, Pharmacy: [id number] Start Date: 04/01/23 Status: Ordered triamcinolone 0.5% topical ointment Start: 12/23/21 10:13:00 EDT, 1 appl, topical, bid, Disp# 15 g, to affected area on left shoulder, [facility]acy: [facility] Start Date: 12/23/21 Status: Ordered Vitamin B6 25 mg oral tablet Start: 02/27/22 11:18:00 EDT, 1 tab, PO, Daily, Disp# 30 tab, Try for 2 weeks then stop if it does not help, other Start Date: 02/27/22 Status: Ordered Vitamin D3 2000 intl units oral tablet Start: 04/16/18 14:21:00 EST, 1 tab, PO, Daily, Disp# 100 tab, other Start Date: 04/16/18 Status: Ordered Mental Status 07/29/23 Barriers to Learning one year None evide nt Mandatory Health Literacy Documentation Yes Health Literacy Communication Barriers N ever Primary Language Kiswahili Problem List Condition Confirmation Course Effective Dates Status H ealth Status Informant DJD (degenerative joint disease) of cervical spine Confirmed Active Depression Confirmed Active Flank pain Confirmed Active History of TIA (transient ischemic attack) Confirmed Active Hyperlipidemia Confirmed Active HTN (hypertension) Confirmed Active Neck pain Confirmed Active Obesity Confirmed Active Osteopenia Confirmed Active Rosacea, acne Confirmed Active Age related osteoporosis Confirmed Active Shoulder pain Confirmed Active Weight disorder Confirmed Active Diagnosis Diagnosis Type Effective Dates Health Status Clinical Service Informant Depression Discharge Diagnosis 07/29/23 Hyperlipidemia Discharge Diagnosis 07/29/23 HTN (hypertension) Discharge Diagnosis 07/29/23 History of TIA (transient ischemic attack) Discharge Diagnosis 07/29/23 Rosacea, acne Discharge Diagnosis 07/29/23 Obesity Discharge Diagnosis 07/29/23 Ear bleeding Discharge Diagnosis 07/29/23 Procedures Procedure Date Related Diagnosis Body Site Status CT of abdomen and pelvis wit h IV contrast 1 05/11/22 Completed DEXA (dual energy X-ray abso rptiometry) of lateral spine 2 07/19/[address] of head 3 07/13/21 Completed Cataract surgery 2019 daria Carotid artery doppler 5 06/30/18 Completed MRI of brain without contrast 6 06/30/18 Completed 12 lead ECG (regime/therapy) 06/21/18 Completed Computed tomography of head without contrast (procedure) 06/21/18 Completed Plain chest X-ray (procedure) 06/21/18 Completed Radiography of shoulder (procedure) 06/21/18 Completed 12 lead ECG (regime/therapy) 06/18/18 Completed Computed tomography of head without contrast (procedure) 06/18/18 Completed Plain chest X-ray (procedure) 06/18/18 Completed 12 lead ECG (regime/therapy) 05/16/[address] of abdomen and pelvis wit hout contrast 05/16/18 Completed Plain chest X-ray (procedure) 05/16/18 Completed Forearm DEXA scan T score 7, 8 12/15/17 Completed Excision 09/18/16 Completed XR Foot Left 9 02/07/13 Completed XR Left Ankle 10 02/07/13 Complete d XR Left Tibia and Fibula 11 02/07/13 Completed Colonoscopy - repeat in 10 years 12 09/03/06 Completed 1Impression: 1. A few punctate bilateral renal calculi. No urteral calculi. No hydronephrosis. 2. No bowell wall thickening or obstruction. 3. Normal appendix. 4. Mild bladder wall thickening with adjuvant fracture. This could be due to a cysttis. Recommend correlation with urinalysis. 2AP spine L1-L4 T-score -1.2 Femur neck left T-score -1.4 Femur neck right t-score -0.6 Femur total t-score -0.9 z-score 0.6 3negative. no significant change to prior study. 4x2 5Mild to moderate plaque formation bilaterally. No significant stenotic process. No change from prior study. 6No acute intracranial findings. No evidence of acute or subacute infarction. No evidence of intracranial mass on this noncontrast study. 7Tscore AP spine -1.8, Left femur neck -1.3, Right femur neck -1.0. Zscore -0.1. Repeat December 2019. 8With a Z- score of 0.4, this patient's BMD is concidered within normal limits relative to her age. Even so, they may be considered osteopenic or osteoporotic, which is normal for her age 9No acute fracture 10No fracture 11No fracture 12hemorrhoids, otherwise without abnormality Repeat in 10 years Vital Signs Most recent to oldest [Reference Range]: 1 Heart Rate 70 bpm (07/29/23 12:43 PM) Respiratory Rate 12 br/min (07/29/23 12:43 PM) Blood Pressure 134/88mmHg (07/29/23 12:43 PM) Cuff Pulse Pressure 46 mmHg (07/29/23 12:43 PM) Social History Social History Type Response Smoking Status Never smoked cigaret horace Sex Female FCM Outpt Note * MD Chris, Marcellus: PERFORM Event Display: FCM Outpt Note Authored Date: [id number] Chief Complaint 6 month F/U bleeding from the left ear a few days ago just got hearing aids about 2 weeks History of Present Illness L ear bleeding: x 3 days. intermittent. small amount. using new hearing aid for 2 wks. no pain. MDD: stable. sleeps well. TIA: on meds. no fall HLD: on statin. no muscle aches HTN: on med. still no home bp check. no dizzy. Review of Systems No fever/chills. No headache. No respiratory symptoms. No chest pain/shortness of breath. No nausea/vomiting. No abdominal pain. No change with bowels. No urinary symptoms. No otherbleeding. No joint pain. Other systems reviewed and are neg. Physical Exam Vitals & Measurements HR:70(Monitored) RR:12 BP:134/88 SpO2:98% PHQ2 Data(Data Documented on:07/29/2023 12:43) Emotional health assessment NEGATIVE General: No acute distress. Nontoxic. Head:Normocephalic, Atraumatic. Eyes:Pupils are equal, round Normal conjunctiva. Ears: Tympanic membranes are clear. L ear canal from 5 to 7 o'clock small smear of blood w/o active bleeding. , Neck:Supple, Non-tender, No thyromegaly Respiratory:Lungs are clear to auscultation, Respirations non-labored, Breath sounds equal MARCIA. Cardiovascular:Normal rate, Regular rhythm, No murmur, Rubs, gallops. Gastrointestinal:Soft, Non-tender, Non-distended, Normal bowel sounds. Neurologic:Alert, Oriented, No focal deficits. Psychiatric:Cooperative, Appropriate mood & affect. Assessment/Plan 1.HTN (hypertension) STATUS: Chronic stable: x DATA: Review of prior external note(s) from each unique source: Review of the result(s) of each unique test: x Ordering of each unique test: x Assessment requiring independent historian(s): GOAL:BP <140/90 PLAN: Home BP advised. continue Losartan. DASH and exercise. labs ordered. 2.Depression STATUS: Chronic, stable w/o med DATA: Labs reviewed GOAL: Resolution PLAN: Lexapro - did not help. stopped Mirtazapine. Continue exercise and light exposure. 3.Hyperlipidemia STATUS: Chronic stable: x at [facility] DATA: Review of prior external note(s) from each unique source: Review of the result(s) of each unique test: x Ordering of each unique test: x GOAL: prevent ASCVD/LDL<70 PLAN: continue Crestor. WT loss. Diet and exercise. labs ordered 4.History of TIA (transient ischemic attack) STATUS: Chronic stable: x DATA: Review of prior external note(s) from each unique source: Review of the result(s) of each unique test: x Ordering of each unique test:x GOAL: prevent ASCVD PLAN:continue Crestor and plavix. Avoid NSAIDs. nondrinker.f/u neurology - referred back again. Fall prevention. labs ordered 5.Obesity STATUS: Chronic stable: Chronic uncontrolled: x Acute uncomplicated: Acute illness with systemic symptoms: Undiagnosed new problems with uncertain prognosis: Chronic illnesses with exacerbation, progression, or side effects of treatment: 1 acute complicated injury: DATA: Review of prior external note(s) from each unique source: Review of the result(s) of each unique test: x Ordering of each unique test: x Assessment requiring independent historian(s): GOAL: 5% loss PLAN: diet and exercise. declined med and referral. declined sleep study. labs ordered. 6.Ear bleeding STATUS: Chronic stable: Chronic uncontrolled: Acute uncomplicated: x Acute illness with systemic symptoms: Undiagnosed new problems with uncertain prognosis: Chronic illnesses with exacerbation, progression, or side effects of treatment: 1 acute complicated injury: DATA: Review of prior external note(s) from each unique source: Review of the result(s) of each unique test: Ordering of each unique test: Assessment requiring independent historian(s): GOAL: Resolution PLAN: will adjust use of hearing aid. 7.Rosacea, acne STATUS: Chronic stable: x Chronic uncontrolled: Acute uncomplicated: Acute illness with systemic symptoms: Undiagnosed new problems with uncertain prognosis: Chronic illnesses with exacerbation, progression, or side effects of treatment: 1 acute complicated injury: DATA: Review of prior external note(s) from each unique source: Review of the result(s) of each unique test: Ordering of each unique test: Assessment requiring independent historian(s): GOAL: Reduce symptoms PLAN: in remission now. stopped doxy. saw derm call prn. f/u 4 mos Time spent: Pre-visit planning/chart review: 5 minutes Ghnu-ta-lyek visit: 25 minutes Post-visit documentation: minutes Care coordination: minutes Time spent on disease management/counseling in addition to CPE/AWV/WCC: minutes Total visit time: 30 minutes Problem List/Past Medical History Ongoing Age related osteoporosis Degenerative joint disease of knee| Status: Inactive Depression DJD (degenerative joint disease) of cervical spine Flank pain History of TIA (transient ischemic attack) HTN (hypertension) Hyperlipidemia HYPERTENSION. Insomnia, unspecified Neck pain Obesity Osteopenia Rosacea, acne Shoulder pain TRANSIENT ISCHEMIC ATTACK. Weight disorder Historical Hemorrhoids Hx of hypokalemia Procedure/Surgical History CT of abdomen and pelvis with IV contrast| Service Date: 3DEXA (dual energy X-ray absorptiometry) of lateral spine| Service Date: 2CT of head| Service Date: 2Cataract surgery| Service Date: 2019MRI of brain without contrast| Service Date: 06/30/2018Carotid artery doppler| Service Date: 06/30/2018Radiography of shoulder (procedure)| Service Date: 06/21/2018Plain chest X-ray (procedure)| Service Date: 06/21/2018Computed tomography of head without contrast (procedure)| Service Date: 06/21/201812 lead ECG (regime/therapy)| Service Date: 06/04Plain chest X-ray (procedure)| Service Date: 06/18/2018Computed tomography of head without contrast (procedure)| Service Date: lead ECG (regime/therapy)| Service Date: 06/18/2018Plain chest X-ray (procedure)| Service Date: 05/16/2018CT of abdomen and pelvis without contrast| Service Date: lead ECG (regime/therapy)| Service Date: 05/16/2018Forearm DEXA scan T score| Service Date: 12/15/2017Excision| Service Date: 09/18/2016XR Left Ankle|Service Date: 02/07/2013XR Left Tibia and Fibula| Service Date: 02/07/2013XR Foot Left| Service Date: 02/07/2013Colonoscopy - repeat in 10 years| Service Date: 09/03/2006 Medications cholecalciferol(Vitamin D3 2000 intl units oral tablet), 2000 Int_Unit= 1 tab, PO, Daily clopidogrel(clopidogrel 75 mg oral tablet), 1 tab, PO, Daily, 3 refills doxycycline(doxycycline hyclate 50 mg oral capsule), See Instructions losartan(losartan 100 mg oral tablet), 100 mg= 1 tab, PO, Daily, 3 refills pyridoxine(Vitamin B6 25 mg oral tablet), 25 mg= 1 tab, PO, Daily rosuvastatin(Crestor 20 mg oral tablet), 20 mg= 1 tab, PO, qhs, 3 refills tetanus toxoids-diphtheria, Td (Adult)(Tetanus toxoids-Diphtheria, Adult (Td) 2 units-2 units/0.5 mL intramuscular suspension), 0.5 mL, IM, ONCE triamcinolone topical(triamcinolone 0.5% topical ointment), 1 appl, topical, bid ubiquinone(Coenzyme Q10 200 mg oral capsule), See Instructions zoster vaccine, inactivated(Shingrix intramuscular injection), 0.5 mL, IM, ONCE, 1 refills Allergies amLODIPineleg swelling lisinoprilcough Social History Smoking Status Never smoked cigarettes Alcohol - Denies Alcohol Use Employment/School Status:Retired Description:cleaning Home/Environment - Low Risk Nutrition/Health - Medium Risk Other Details: Sexual - No Risk Substance Abuse - No Risk Tobacco - Denies Tobacco Use Family History Diabetes mellitus type 2: Mother and Sister. Health Status Family Member(s) Immunizations Vaccine Date Status pneumococcal 23-valent vaccine 08/27/2015 Given tetanus/diphtheria/pertuss, acel (Tdap) 06/11/2011 Given Recommendations Health Maintenance Pending(in the next year) OverDue Medicare Annual Wellness Visit due04/24/22and every 1year Adult Influenza Vaccine due10/31/22and every 1year Due Adult COVID-19 Vaccination due07/29/23Unknown Frequency Adult Social Determinants of Health Screening due07/29/23Unknown Frequency Adult Tdap/Td Vaccine due03/27/24Unknown Frequency Body Mass Index due07/29/23Unknown Frequency Hepatitis C Screening due07/29/23One-time only Pneumococcal Vaccine Older Adults due07/29/23One-time only Shingles Vaccine due07/29/23One-time only Satisfied(in the past 1 year) Satisfied Lipid Screening on11/19/22.Satisfied by Contributor_system, [employer] Electronic Signature on File Electronically Reviewed/Signed by: Marcellus Perez MD Author Signature Dt/Tm:07/29/2023 01:20 PM Department of Family Medicine DJ Patient Care team information Care Team Personnel Name: MD Perez Dongsheng Position: Physician - Family Med Member Role: Primary Care Provider Address: Address: [address] [place] [id number] Care Team Related Persons Name: SHANNON BADILLO Address: home [address] [place] [phone]"
[2023-10-25] MEDS: ONDANSETRON INJ 2 MG/ML 2 ML VIAL ONE (02:39)
[2023-10-25] MEDS: OPTIRAY 320 125ml IV ONE (02:42)
[2023-10-25 02:56] LABS: Basophils # (auto) 0.04 K/uL (0.00-0.20); Basophils % (auto) 0.7 %; Eosinophils # (auto) 0.09 K/uL (0.00-0.50); Eosinophils % (auto) 1.5 %; Hemoglobin 14.7 g/dl (12.0-16.0); Immature Granulocytes # (auto) 0.01 K/uL (0.01-0.20); Immature Granulocytes % (auto) 0.2 %; Lymphocytes # (auto) 2.39 K/uL (1.20-3.40); Lymphocytes % (auto) 40.1 %; Mean Corpuscular Hemoglobin 30.8 pg (25.0-34.0); Mean Corpuscular Hgb Conc 34.2 g/dL (32.0-36.0); Mean Platelet Volume 10.4 fL (9.4-12.4); Monocytes # (auto) 0.42 K/uL (0.11-0.59); Neutrophils # (auto) 3.01 K/uL (1.40-6.50); Neutrophils % (auto) 50.5 %; Platelet Count 176 K/uL (130-400); RDW Coefficient of Variation 13.3 % (11.5-14.5); Red Blood Count 4.78 M/uL (4.20-5.40); White Blood Count 5.96 K/ul (4.8-10.8)
--- NOTE | 2023-10-25 02:58 | CT Scan Report ---
Exam(s): CTA CHEST EXAM: CT Angiography Chest With Intravenous Contrast CLINICAL HISTORY: PE. TECHNIQUE: Axial computed tomographic angiography images of the chest with intravenous contrast. CTDI is 35.08 mGy and DLP is 1390.23 mGy-cm. Automated exposure control was utilized for the study. A dose lowering technique was utilized adhering to the principles of ALARA. MIP reconstructed images were created and reviewed. COMPARISON: No relevant prior studies available. FINDINGS: Pulmonary arteries: Accounting for limitations with respiratory artifact, there is no definite evidence for pulmonary embolism. Aorta: The thoracic aorta is normal in caliber with atherosclerotic calcification. No dissection or aneurysm. Lungs: Expiratory lung volumes. Dependent subsegmental changes predominantly in the dependent portions of both lungs. No lobar consolidation. Pleural space: Unremarkable. No significant effusion. No pneumothorax. Heart: Borderline cardiomegaly. No pericardial effusion. Prominent coronary artery calcification in the LAD distribution is of uncertain clinical events. Mediastinum: Small hiatal hernia. Bones/joints: No acute fracture. No dislocation. Soft tissues: The overlying soft tissues are unremarkable, accounting for partial exclusion of the superficial components. Lymph nodes: Unremarkable. No enlarged lymph nodes. Liver: Hypoattenuating areas throughout the liver are incompletely evaluated by phase of contrast imaging and are presumed hepatic cysts. Detailed evaluation limited. Rim calcification of the splenic cyst with internal septations. IMPRESSION: 1. Accounting for limitations with respiratory artifact, there is no definite evidence for pulmonary embolism. 2. Expiratory lung volumes. Dependent subsegmental changes predominantly in the dependent portions of both lungs are presumed atelectasis. No lobar consolidation. No pleural effusion or pneumothorax. Electronically signed by: Sukhi Lowery MD 10/25/23 02:57 AM
[2023-10-25 02:59] LABS: Albumin Globulin Ratio 1.5 (0.9-2); BUN Creatinine Ratio 22.1 (10-20); Bilirubin,Total 0.6 mg/dl (0.2-1.0); Calcium 9.1 mg/dl (8.6-10.3); Creatinine Clr Calc Pharmacy 66.3 ml/min; Est GFR (African American) 84.5 ml/min; Est GFR (Non-African American) 72.9 ml/min; Globulin 2.7 gm/dl (2.5-4.0); Potassium 3.3 mmol/L (3.5-5.1); Total Protein 6.7 gm/dl (6.0-8.3)
[2023-10-25] MEDS: LORazepam 1 MG/1 ML SYR ED Inj Use IV STA (03:05)
[2023-10-25 03:06] LABS: Troponin I High Sensitivity 5.7 pg/ml (0-14)
--- NOTE | 2023-10-25 03:06 | CT Scan Report ---
Exam(s): CT HEAD Without Contrast EXAM: CT Head Without Intravenous Contrast CLINICAL HISTORY: eval for head bleed. TECHNIQUE: Axial computed tomography images of the head/brain without intravenous contrast. CTDI is 35.08 mGy and DLP is 1390.23 mGy-cm. Automated exposure control was utilized for the study. A dose lowering technique was utilized adhering to the principles of ALARA. COMPARISON: CT head without contrast dated 07/13/2021 FINDINGS: Brain: No intracranial hemorrhage. No significant mass effect. No evidence for cortical infarct. Similar underlying parenchymal involutional changes with prominence of the cerebral sulci and fissures. Minimal periventricular deep white matter hypodense changes. Similar hypodense area lateral to the right caudate head. Ventricles: Unremarkable. No ventriculomegaly. Bones/joints: Unremarkable. No acute fracture. Soft tissues: Unremarkable. Sinuses: Unremarkable as visualized. No acute sinusitis. Mastoid air cells: Unremarkable as visualized. No mastoid effusion. IMPRESSION: No acute intracranial process or significant alteration from the prior examination. Electronically signed by: Sukhi Lowery MD 10/25/23 03:05 AM
--- NOTE | 2023-10-25 03:44 | History & Physical Report ---
Date of Service October 25, 2023 Assessment & Plan (1) Syncope: Plan: -Patient with 3 episodes of syncope, 1 when EMS arrived, 2 in the ED. All lasting approximately 10 seconds. No witnessed seizure activity. -Head CT negative, chest CTA negative for PE, did show some atelectasis. -CBC benign, troponin negative. -CMP with slight hypokalemia of 3.3, otherwise unremarkable -Anticoagulation workup with beta-2 glycoprotein, cardiolipin, homocystine, lupus anticoagulation ordered. -CBC, CMP, hemoglobin A1c, lipid panel, and TSH ordered in AM. -Neck CTA from 2021 showed evidence suggesting of fibromuscular dysplasia. -Neurology note from 2021 recommended a referral to vascular surgery, patient is unsure if she ever followed up on this. -MRA head w/o, MRA neck w and w/o, MRI w/o ordered. -ECHO ordered. Previous echo in 2021 showed a EF of 65-70% with a negative bubble study. -Potassium and magnesium supplementation given at time of admission. -Will keep n.p.o. at this time. -LR at 125 mL an hour. -IV Tylenol as needed for pain. -Will monitor on telemetry. -Palonosetron prn for nausea as concerns over prolonged QTc. (2) Hypokalemia: Plan: -Hypokalemia in the ED at 3.3. -Supplementation in the ED. Will continue to follow with daily labs (3) HLD (hyperlipidemia): Plan: -Holding home meds. -Lipid panel in the a.m. (4) HTN (hypertension): Plan: -Holding home meds. (5) TIA (transient ischemic attack): Plan: -Prior history of TIA. -Continue on atorvastatin and Plavix. Plan Fluids: LR at 125 mL/hr, 1 L Nutrition: N.p.o. Code status: Full code DVT ppx: SCDs Dispo: PCU/telemetry History of Present Illness Chief Complaint: Syncope Primary Care Provider: Marcellus Perze Patient is a 78-year-old female with past medical history of TIA, hypertension, hyperlipidemia who presents to the hospital with syncopal episodes. Patient was at home and having a conversation with her daughter when she became very upset. She started crying and shaking and felt that her nose was stuffed up. After she blew her nose she had a severe headache. EMS was called and on arrival patient had a syncopal episode for 10 seconds. Patient then had a another syncopal episode for about 10 seconds when the ED doc was talking to the patient. Some concerns of asystole for 5 seconds during this time. When patient arose from the syncopal episode she had nausea and vomiting with a severe headache. Later after CT patient had a another syncopal episode and again had dry heaving post syncopal episode. Patient states that she has never had this before. Patient has seen neurology in the past regarding her TIA symptoms. CTA of the head and neck showed findings suggestive of mild fibromuscular dysplasia. It was recommended to see vascular surgery regarding the possibility of mild fibromuscular dysplasia. Patient and daughter bedside were unsure if she ever followed up on this vascular surgery referral. Of note patient states that she got very worked up with talking to her daughter earlier today. Allergies Allergy/AdvReac Type Severity Reaction Status Date / Time No Known Allergies Allergy Verified 01/30/22 09:52 Home Medications Medication Instructions Recorded Confirmed Type cholecalciferol (vitamin D3) 25 2,000 unit PO QAM 06/18/18 01/30/22 History mcg (1,000 unit) capsule (Vitamin D3) mirtazapine 15 mg tablet 15 mg PO HS 07/13/21 01/30/22 History atorvastatin 40 mg tablet 40 mg PO HS #30 tabs 07/14/21 01/30/22 Rx clopidogrel 75 mg tablet (Plavix) 75 mg PO DAILY #30 tabs 07/14/21 01/30/22 Rx losartan 100 mg tablet 100 mg PO DAILY #30 tabs 07/14/21 01/30/22 Rx Past Med/Surg History Problem List (Updated 10/25/23 @ 06:11 by Ally Mcallister DO) Headache (Acute) Syncope (Acute) Hypokalemia HLD (hyperlipidemia) HTN (hypertension) TIA (transient ischemic attack) (Acute) Arthritis Medical History (Updated 10/25/23 @ 06:11 by Ally Mcallister DO) Lupus History of CVA (cerebrovascular accident) Hypercholesterolemia Hypertension Surgical History No pertinent past surgical history Family History Other Family history non-contributory Social History Smoking Status: Never smoker Hx Alcohol Use: No Hx Substance Use: No Preferred Language: Albanian Communication Ability: Effective Underwriter Solicitation Director Required: No Beliefs That Will Affect Care: None Current Living Situation: Alone Feels Safe at Home: Yes Assistive Devices: Denture - Upper Review of Systems Review of Systems: All systems reviewed & are unremarkable except as noted in Subjective Physical Exam Physical Exam: Constitutional: well-appearing, no acute distress HEENT: NCAT, no conjunctival injection CV: regular rhythm, no murmur appreciated, extremities well-perfused, no LE edema Resp: CTABL, no wheezes/rales/rhonchi appreciated, no increased work of breathing GI: soft, nondistended, nontender, BS normoactive MSK: no gross deformities appreciated Skin: warm, dry, no rash appreciated Neuro: alert, oriented, no focal neurologic deficit appreciated Results & Data Results & Data Vital Signs (Past 12 Hours) Vital Signs Temp Pulse Resp BP Pulse Ox O2 Del Method 10/25/23 02:34 92 Room Air 10/25/23 02:22 94 H 10/25/23 02:19 0 L 10/25/23 02:18 0 L 10/25/23 02:07 36.7 C 83 16 153/88 H 92 Room Air 10/25/23 02:00 89 Supervising Physician Co-Signing Physician Notes Attending addendum: I have physically seen this patient, have supervised the medical residents activities, and agree with the H&P unless as otherwise noted. Assessment and Plan: Syncope- Patient had 3 syncopal episodes upon arrival of EMS at her home, 2 in the emergency department. The patient will be admitted to telemetry for serial cardiac enzymes, serial EKG's, cardiac rhythm monitoring and a 2-D echocardiogram with Dopplers. CT scan of head without contrast negative CT angiography chest PE protocol is negative Patient had similar episodes in June-August 2018, negative workup at that time In July 2021, CTA neck at that time showed fibromuscular dysplasia Order MRI brain without contrast Order MRA head without contrast Order MRA neck with and without contrast Patient may benefit from having an EEG, inpatient versus outpatient Continue clopidogrel 75 mg p.o. daily, add aspirin 81 mg daily Order arterial hypercoagulable workup, not done in the past: Lupus anticoagulant, phospholipid antibodies, beta-2 microglobulin, and homocystine Hold losartan to allow permissive hypertension Electrolyte disturbances- Hypokalemia with potassium 3.3 on admission, will give Klor-Con 40 mEq p.o. x 1 Hypomagnesemia, magnesium 1.7, will give magnesium sulfate 1 g IV Repeat laboratories in a.m. Hyperglycemia- Glucose 198 on admission Check a hemoglobin A1c Hyperlipidemia- Atorvastatin will be increased from 40 to 80 mg Check a fasting lipid panel (1) Syncope Syncope type: unspecified Qualified Code(s): R55 - Syncope and collapse
[2023-10-25 03:49] LABS: Magnesium 1.7 mg/dl (1.7-2.4)
[2023-10-25] MEDS ORDERED: PALONOSETRON 0.25 MG in SYRINGE 0 ML IV PRN (04:17)
[2023-10-25] MEDS: HYDROmorphone INJ 1 MG/ML SYRINGE IV STA (04:35)
[2023-10-25] MEDS: MAGNESIUM SULFATE / D5W 1 GM/100 ML BAG IV ONE (04:36)
[2023-10-25] MEDS: POTASSIUM CHLORIDE CRTAB 20 MEQ TABCR PO STA (04:36)
[2023-10-25] MEDS: ACETAMINOPHEN 1,000 MG/100 ML VIAL IV STA (04:36)
[2023-10-25] MEDS ORDERED: ACETAMINOPHEN 1,000 MG/100 ML VIAL IV PRN (05:51)
--- NOTE | 2023-10-25 06:12 | Emergency Department Note ---
Impression & Plan Syncope, Headache admit to the [facility] ED Provider Note NAME: ARCHANA VALLE AGE: 78 SEX: Female INFORMANT: Patient ED PROVIDER(S): Ally Mcallister DO CHIEF COMPLAINT: headache PLAN: Disposition: admit to the [facility] MEDICAL DECISION MAKING: this is an 78-year-old female patient who presents to the emergency department with a severe headache. The patient's daughter explains that the patient became quite upset during some discussions with her other daughter and was crying and emotional. Began to shake as a result of being so upset. The patient blew her nose very hard and had a sudden onset of severe head pain. The patient's head pain continued to worsen and EMS was called. Upon their arrival at their home, patient had a syncopal event that lasted between 10-15 seconds. She was transported here for evaluation. During my initial evaluation of the patient, she had an episode of syncope where she became asystolic for approximately 5 to 7 seconds, bit her tongue, and began to dry heave. CT scan of the brain was unremarkable. Patient was having episodes of hypoxia on room air and went for CTA of the chest rule out PE. This was negative. Upon returning from radiology, the patient had a second episode of syncope similar to the first and lasted 10 to 15 seconds and was associated with bradycardia and asystole again. At that time, did she have chest compressions. She regained consciousness immediately and went back into a sinus rhythm. Laboratory studies revealed mild hypokalemia with a potassium of 3.3. There was no leukocytosis or anemia. Troponin was negative. Glucose was 198. Patient's nausea was initially treated with IV Zofran but then patient's EKG revealed a borderline prolonged QT and therefore Ativan was used as a second line treatment. [facility]. I did review the results of the CT scans with the patient, her daughter and her sports journalist. Care/management discussed with: Patient's daughter who is at the bedside along with her sports journalist. The family development extension specialist, the [facility] Triage Nursing notes: reviewed and agree with them. Vital Signs: reviewed and remarkable for an episode of significant bradycardia to the point she became asystolic. Additional History obtained from: The patient's daughter who is at the bedside Differential Diagnosis: cardiac dysrhythmia, intracranial hemorrhage, seizure, cardiac ischemia, TIA, CVA Diagnostics, independently interpreted by me: ECG: normal sinus rhythm at a rate of 88 with a first-degree AV block. There is no ST segment elevation or signs of ischemia. QTc was 491 ms. ECG #2: Normal sinus rhythm at a rate of 86 with first-degree AV block. No ST segment elevation or signs of ischemia. QTc was 459 ms Cardiac Monitoring: normal sinus rhythm at a rate of 88 Imaging studies: CT scan of the brain: As per stat rad CTA of the chest: As per stat rad HPI: 78 year old Female arrives for evaluation of severe headache. Patient's daughter explains that the patient became very upset and emotional after having a conversation with her other sister. She was crying and shaking a lot because of this conversation and her nose became very congested. The patient blew her nose and suddenly developed a severe headache. PAST MEDICAL HISTORY: See Below, PAST SURGICAL HISTORY: See Below, SOCIAL HISTORY: See Below, HOME MEDICATIONS: See list ALLERGIES: None VITALS: See Below PHYSICAL EXAMINATION: HEENT: Head - normocephalic and atraumatic. Pupils are equal, round, and reactive to light. Extraocular eye muscles are intact and sclera are anicteric. Nose - moist nasal mucosa without discharge. Mouth - moist buccal mucosa. Oropharynx is nonerythematous and there is no tonsillar exudate or edema noted. Neck: Supple; no JVD, nuchal rigidity, cervical lymphadenopathy, or auscultated bruits. Heart: Regular rate and rhythm. There is a normal S1 and S2 with no murmurs, clicks, or gallops appreciated. Lungs: Clear to auscultation bilaterally with no wheezes, rales, or rhonchi. Abdomen: Soft, completely nontender, nondistended, with good bowel sounds. There are no palpable pulsatile masses or hepatosplenomegaly. There is no guarding, rigidity, or rebound noted. Extremities: No evidence of cyanosis, clubbing, or edema. There are easily palpable peripheral pulses. Neuro:The patient is awake and alert, oriented to day, time, and place. Muscle strength is 5/5 in all 4 extremities. The patient has equal project management specialist strength and equal pedal push and pull. There are no cerebellar signs. Emergency department treatment: night monitor, supplemental oxygen, IV Zofran, IV Ativan Emergency department course: Patient was evaluated in room C-8. A complete history and physical was performed. Patient was placed on supplemental oxygen because she was hypoxic. IV lock was initiated and labs were drawn as above. Twelve-lead EKG was obtained. An order was placed for continuous cardiac monitoring. The patient was in a normal sinus rhythm at a rate of 88. As I was talking to the patient, her eyes rolled to the back of her head and she became asystolic. I laid the head of the bed down and called for help. I called the patient's name and she opened her eyes and began to dry heave. I ordered the patient to have Zofran and to go for a stat CT scan of her chest to rule out PE and brain to rule out intracranial hemorrhage as the patient complained of such as severe headache after blowing her nose. Upon returning from radiology, the patient had another episode of syncope lasting an additional 10 to 15 seconds and was associated with another episode of asystole. I discussed the case with the [facility] Hospitalist and they will evaluate for further inpatient care. Patient had a second EKG performed. She was given a dose of IV Ativan for her nausea and seem to feel much better but was complaining of 10/10 head pain. I ordered a dose of IV Dilaudid and discussed the case with the [facility] Hospitalist. They changed the order to IV Tylenol. Past Med/Surg History Problem List (Updated 10/25/23 @ 11:52 by Jodi Brown MD) Stroke Headache (Acute) Syncope (Acute) Hypokalemia HLD (hyperlipidemia) HTN (hypertension) TIA (transient ischemic attack) (Acute) Arthritis Medical History (Updated 10/25/23 @ 11:52 by Jodi Brown MD) Lupus History of CVA (cerebrovascular accident) Hypercholesterolemia Hypertension Surgical History No pertinent past surgical history Family History Other Family history non-contributory Social History Smoking Status: Never smoker Second Hand Exposure: No; Do You Dip or Chew Tobacco: No; Hx Alcohol Use: No Hx Substance Use: No Preferred Language: Yi Communication Ability: Effective Sales Account Associate Required: No Beliefs That Will Affect Care: None Current Living Situation: Alone Feels Safe at Home: Yes Assistive Devices: None Allergies Allergies Allergy/AdvReac Type Severity Reaction Status Date / Time No Known Allergies Allergy Verified 01/30/22 09:52 Home Meds Home Medications Medication Instructions Recorded Confirmed cholecalciferol (vitamin D3) 25 2,000 unit PO QAM 06/18/18 10/25/23 mcg (1,000 unit) capsule (Vitamin D3) mirtazapine 15 mg tablet 15 mg PO UD 07/13/21 10/25/23 Previous Rx's Medication Instructions Recorded atorvastatin 40 mg tablet 40 mg PO HS #30 tabs 07/14/21 clopidogrel 75 mg tablet (Plavix) 75 mg PO DAILY #30 tabs 07/14/21 losartan 100 mg tablet 100 mg PO DAILY #30 tabs 07/14/21 aspirin 81 mg tablet,delayed 81 mg PO QAM #30 tabs 10/25/23 release Results & Data (ED) Vital Signs Vital Signs - 24 hr 10/25/23 02:00 10/25/23 02:07 10/25/23 02:18 Temperature 36.7 C Temperature Source Oral Pulse Rate 89 83 0 L Pulse Rate from SpO2 Sensor Pulse Rhythm Regular Pulse Strength Normal Respiratory Rate 16 Respiratory Effort / Characteristics Non-Labored Respiratory Depth Normal Respiratory Pattern Regular Blood Pressure 153/88 H Blood Pressure Mean 109 Pulse Oximetry 92 Oxygen Delivery Method Room Air Sepsis Recent Fever Within 48 Hours No Sepsis New/Unexplained Change in Mental Status No Sepsis Action Taken by Nursing No Action Required Oxygen Flow Rate - Titration Pulse Oximetry Post Tiitration 10/25/23 02:19 10/25/23 02:22 10/25/23 02:34 Temperature Temperature Source Pulse Rate 0 L 94 H Pulse Rate from SpO2 Sensor Pulse Rhythm Pulse Strength Respiratory Rate Respiratory Effort / Characteristics Respiratory Depth Respiratory Pattern Blood Pressure Blood Pressure Mean Pulse Oximetry 92 Oxygen Delivery Method Room Air Sepsis Recent Fever Within 48 Hours Sepsis New/Unexplained Change in Mental Status Sepsis Action Taken by Nursing Oxygen Flow Rate - Titration 2 Pulse Oximetry Post Tiitration 95 10/25/23 03:03 10/25/23 03:33 10/25/23 03:42 Temperature Temperature Source Pulse Rate 88 88 88 Pulse Rate from SpO2 Sensor 89 88 87 Pulse Rhythm Pulse Strength Respiratory Rate 20 21 19 Respiratory Effort / Characteristics Respiratory Depth Respiratory Pattern Blood Pressure Blood Pressure Mean Pulse Oximetry 95 96 95 Oxygen Delivery Method Sepsis Recent Fever Within 48 Hours Sepsis New/Unexplained Change in Mental Status Sepsis Action Taken by Nursing Oxygen Flow Rate - Titration Pulse Oximetry Post Tiitration 10/25/23 04:06 Temperature Temperature Source Pulse Rate 90 Pulse Rate from SpO2 Sensor 89 Pulse Rhythm Pulse Strength Respiratory Rate 19 Respiratory Effort / Characteristics Respiratory Depth Respiratory Pattern Blood Pressure Blood Pressure Mean Pulse Oximetry 99 Oxygen Delivery Method Sepsis Recent Fever Within 48 Hours Sepsis New/Unexplained Change in Mental Status Sepsis Action Taken by Nursing Oxygen Flow Rate - Titration Pulse Oximetry Post Tiitration Laboratory Data 10/25/23 02:02 10/25/23 02:02 Lab Results 10/25/23 Range/Units 02:02 WBC 5.96 (4.8-10.8) K/ul RBC 4.78 (4.20-5.40) M/uL Hgb 14.7 (12.0-16.0) g/dl Hct 43.0 (37.0-47.0) % MCV 90.0 (80.0-100.0) fL MCH 30.8 (25.0-34.0) pg MCHC 34.2 (32.0-36.0) g/dL RDW Std Deviation 44.0 (36.4-46.3) fL RDW Coeff of [place] 13.3 (11.5-14.5) % Plt Count 176 (130-400) K/uL MPV 10.4 (9.4-12.4) fL Immature Gran % (Auto) 0.2 % Neut % (Auto) 50.5 % Lymph % (Auto) 40.1 % [place] % (Auto) 7.0 % Eos % (Auto) 1.5 % Baso % (Auto) 0.7 % Neut # (Auto) 3.01 (1.40-6.50) K/uL Lymph # (Auto) 2.39 (1.20-3.40) K/uL [place] # (Auto) 0.42 (0.11-0.59) K/uL Eos # (Auto) 0.09 (0.00-0.50) K/uL Baso # (Auto) 0.04 (0.00-0.20) K/uL Immature Gran # (Auto) 0.01 (0.01-0.20) K/uL Sodium 141 (136-145) mmol/L Potassium 3.3 L (3.5-5.1) mmol/L Chloride 109 H (98-107) mmol/L Carbon Dioxide 22 (21-32) mmol/L Anion Gap 10 (3-11) BUN 17 (6-23) mg/dl Creatinine 0.77 (0.6-1.2) mg/dl Est Cr Clr Drug Dosing 66.3 ml/min Est GFR ( Amer) 84.5 ml/min Est GFR (Non-Af Amer) 72.9 ml/min BUN/Creatinine Ratio 22.1 H (10-20) Glucose 198 H (70-99(Fasting)) mg/dl Calcium 9.1 (8.6-10.3) mg/dl Magnesium 1.7 (1.7-2.4) mg/dl Total Bilirubin 0.6 (0.2-1.0) mg/dl AST 15 (13-39) U/L ALT 11 (7-52) U/L Alkaline Phosphatase 81 (34-104) U/L Troponin I High Sens 5.7 (0-14) pg/ml Total Protein 6.7 (6.0-8.3) gm/dl Albumin 4.0 (3.4-5.0) gm/dl Globulin 2.7 (2.5-4.0) gm/dl Albumin/Globulin Ratio 1.5 (0.9-2) Administered Medications Discontinued Medications Acetaminophen (Acetaminophen 325 Mg Tab) 650 mg PO Q4H PRN PRN Reason: Pain or Fever Stop: 11/24/23 11:43 Last Admin: 10/25/23 11:57 Dose: 650 mg Documented By: SANDRO Aspirin (Aspirin 81 Mg Ectab) 81 mg PO QAM [facility] Stop: 11/24/23 08:59 Last Admin: 10/25/23 11:57 Dose: 81 mg Documented By: SANDRO Clopidogrel Bisulfate (Clopidogrel Bisulfate 75 Mg Tab) 75 mg PO DAILY [facility] Stop: 11/24/23 08:59 Last Admin: 10/25/23 11:57 Dose: 75 mg Documented By: SANDRO Gadobutrol (Gadobutrol 30ml Vial) 10.1 ml IV ONCE ONE Stop: 10/25/23 11:43 Last Admin: 10/25/23 11:12 Dose: 10.1 ml Documented By: STEVE Hydromorphone HCl (Hydromorphone Inj 1 Mg/Ml Syringe) 1 mg IV NOW STA Stop: 10/25/23 03:29 Last Admin: 10/25/23 04:35 Dose: Not Given Documented By: SULEMAN Acetaminophen (Ofirmev) 1,000 mg in 100 mls @ 400 mls/hr IV NOW STA Stop: 10/25/23 04:35 Last Infusion: 10/25/23 05:07 Dose: Infused Documented By: Admin: 10/25/23 04:36 Dose: 400 mls/hr Documented By: SULEMAN Magnesium Sulfate/Dextrose (Magnesium Sulfate / D5w) 1 gm in 100 mls @ 50 mls/hr IV ONE ONE Stop: 10/25/23 06:22 Last Infusion: 10/25/23 07:27 Dose: Infused Documented By: Admin: 10/25/23 04:36 Dose: 50 mls/hr Documented By: SULEMAN Lactated Ringer's (Lr) 1,000 mls @ 125 mls/hr IV .Q8H МАРИНА Stop: 10/25/23 13:50 Last Infusion: 10/25/23 12:58 Dose: Infused Documented By: Infusion: 10/25/23 09:30 Dose: 0 mls/hr Documented By: Admin: 10/25/23 07:25 Dose: 125 mls/hr Documented By: DAISY Ioversol (Optiray 320 125ml) 118 ml IV ONCE ONE Stop: 10/25/23 02:43 Last Admin: 10/25/23 02:42 Dose: 118 ml Documented By: OLVIN Lorazepam (Lorazepam 1 Mg/1 Ml Syr Ed Inj Use) 0.5 mg IV ONE STA Stop: 10/25/23 02:45 Last Admin: 10/25/23 03:05 Dose: 0.5 mg Documented By: KG Ondansetron HCl (Ondansetron Inj 2 Mg/Ml 2 Ml Vial) Confirm Administered Dose 4 mg .ROUTE .STK-MED ONE Stop: 10/25/23 02:22 Last Admin: 10/25/23 02:39 Dose: 4 mg Documented By: KG Potassium Chloride (Potassium Chloride Crtab 20 Meq Tabcr) 40 meq PO NOW STA Stop: 10/25/23 04:23 Last Admin: 10/25/23 04:36 Dose: 40 meq Documented By: KLS Imaging Data Radiologist's Impression: Brain MRI 10/25/23 04:01 MRI OF THE BRAIN WITHOUT IV CONTRAST CLINICAL HISTORY: Syncope. Headache. COMPARISON STUDY: CT of the brain dated 10/25/2023. MRI of the brain dated 07/13/2021. TECHNIQUE: MRI of the brain was performed utilizing various T1 and T2-weighted sequences in the axial, sagittal, and coronal planes. IV contrast was not administered for this examination. FINDINGS: Brain parenchyma: There is age-related involutional change noting mild subcortical and periventricular microangiopathic disease. There is no hemorrhage or mass effect. There is a punctate focus of restricted diffusion suggested in the right posterior frontal cortex on image #15. This cannot be corroborated on the ADC maps. No additional foci of restricted diffusion are identified. Cardenas- white matter differentiation is preserved. No extra-axial fluid collection is seen. The cerebellar tonsils are normal in configuration. Ventricles, sulci, and cisterns: Prominent secondary to involutional change. Pituitary and sella: Unremarkable. Intracranial vasculature: Normal flow voids are maintained at the skull base. Orbits: The bony orbits are grossly intact. Orbital contents are normal in appearance noting bilateral ocular lens implants. Sinuses and mastoids: There is a small right mastoid effusion. Mild mucosal thickening is noted within the maxillary and ethmoid sinuses. Calvarium: Unremarkable. Cervical cord: Partially visualized cervical spinal cord is normal in morphology and signal intensity. IMPRESSION: 1. There is a punctate focus of apparent restricted diffusion in the high high posterior right frontal lobe cortex. This could not be corroborated on the ADC and could represent a tiny acute to subacute infarct versus artifact. Correlate clinically. 2. No additional foci of restricted diffusion are identified. 3. There is no hemorrhage or mass effect. ACT 112: Negative or not required by law. Electronically signed by: Landon Mendoza M.D. 10/25/2023 11:04 AM Head MRA 10/25/23 04:01 MR ANGIOGRAM OF THE BRAIN CLINICAL HISTORY: Syncope. COMPARISON STUDY: CT angiogram of the brain dated 07/13/2021. TECHNIQUE: 3-D [id number] MR angiography of the intracranial circulation is performed. 3-D tumble views are created and assessed. IV contrast was not administered for this examination. FINDINGS: The internal carotid arteries are widely patent bilaterally, as are the anterior and middle cerebral arteries. There is a beaded appearance of the distal cervical left internal carotid artery suggestive of fibromuscular dysplasia. There is also mild beading of the distal cervical portions of the right internal carotid artery. This was also seen on the 07/13/2021 CT angiogram of the brain. The vertebrobasilar system and posterior cerebral arteries are widely patent. The vertebral arteries are codominant. There is no aneurysm, high-grade stenosis, or focal vessel cutoff seen throughout the intracranial circulation. The brain parenchyma is normal as visualized. IMPRESSION: 1. Unremarkable MR angiogram of the brain. 2. There is a beaded appearance of the distal cervical portions of the internal carotid arteries, greater on the left. This suggests fibromuscular dysplasia and was also seen previously. ACT 112: Negative or not required by law. Electronically signed by: Landon Mendoza M.D. 10/25/2023 11:18 AM Neck MRA 10/25/23 04:01 MR ANGIOGRAM OF THE NECK COMBO CLINICAL HISTORY: Syncope. Fibromuscular dysplasia. COMPARISON STUDY: CT angiogram of the neck dated 07/13/2021. TECHNIQUE: Axial 3-D [id number] MR angiography of the neck is performed. Subsequently, following the IV administration of 10.1 cc of Gadavist. Coronal MR angiogram of the neck was performed to corroborate the findings. 3-D reformats are created and assessed. All measurements were calculated based on NASCET criteria. FINDINGS: Visualized portions of the thoracic aorta are normal in caliber. The aortic arch demonstrates standard 3-vessel anatomy. The subclavian arteries are widely patent bilaterally. The right common carotid artery is widely patent, as are the right internal and external carotid arteries. The left common carotid artery is widely patent, as are the left internal and external carotid arteries. There is a beaded appearance of both internal carotid arteries, left greater than right. This is unchanged from previous and typical for fibromuscular dysplasia. The vertebral arteries are widely patent. The vertebral arteries are codominant. The visualized intracranial vessels at the skull base appear patent. IMPRESSION: 1. There is a beaded appearance of the internal carotid arteries bilaterally. This is typical for fibromuscular dysplasia and unchanged from the prior CT angiogram. 2. Otherwise unremarkable MR angiogram of the neck. ACT 112: Negative or not required by law. Electronically signed by: Landon Mendoza M.D. 10/25/2023 11:49 AM Discharge Plan Visit Data Chief Complaint: Syncope Stated Complaint: SYNCOPE, HEADACHE ED Provider: Ally Mcallister Discharge Problem: Syncope, Headache Patient Disposition: Admitted As Inpatient Discharge Instructions Interventions: ED Discharge Assessment Last Done: 10/25/23 05:52
--- NOTE | 2023-10-25 06:34 | Billing Data ---
Date of Service October 25, 2023 Coding Level of Care Code 15586 INT INP/OBS CARE
[2023-10-25] MEDS: LACTATED RINGER'S 1,000 ML IV SCH (07:25)
[2023-10-25] MEDS ORDERED: PROMETHAZINE HCL 12.5 MG in SODIUM CHLORIDE 0.9% 50 ML IV PRN (07:45)
--- NOTE | 2023-10-25 09:15 | Electrocardiogram Report ---
Test Reason : Blood Pressure : / mmHG Vent. Rate : 088 BPM Atrial Rate : 088 BPM P-R Int : 216 ms QRS Dur : 090 ms QT Int : 406 ms P-R-T Axes : 081 -40 015 degrees QTc Int : 491 ms Sinus rhythm with 1st degree A-V block Left anterior fascicular block Low voltage QRS Poor R wave progression, consider anterior [place] vs. lead placement vs. LVH Diffuse Minor Nonspecific T wave abnormality Abnormal ECG When compared with ECG of 11-MAY-2022 12:12, No significant change Confirmed by Ben Ribeiro ([id number]) on 10/25/2023 9:15:15 AM Referred By: REFERRED SELF Confirmed By:Ben Ribeiro
--- NOTE | 2023-10-25 09:15 | Electrocardiogram Report ---
Test Reason : Blood Pressure : / mmHG Vent. Rate : 086 BPM Atrial Rate : 086 BPM P-R Int : 240 ms QRS Dur : 090 ms QT Int : 384 ms P-R-T Axes : 082 -27 040 degrees QTc Int : 459 ms Sinus rhythm with 1st degree A-V block Low voltage QRS Poor R wave progression, consider anterior [place] vs. lead placement vs. LVH Diffuse Minor Nonspecific T wave abnormality Abnormal ECG When compared with ECG of 25-OCT-2023 01:58,\ No significant change was found Confirmed by Ben Ribeiro ([id number]) on 10/25/2023 9:15:32 AM Referred By: REFERRED SELF Confirmed By:Ben Ribeiro
--- NOTE | 2023-10-25 10:33 | XCELERA ---
[id number]
--- NOTE | 2023-10-25 11:06 | Magnetic Resonance Report ---
MRI OF THE BRAIN WITHOUT IV CONTRAST CLINICAL HISTORY: Syncope. Headache. COMPARISON STUDY: CT of the brain dated 10/25/2023. MRI of the brain dated 07/13/2021. TECHNIQUE: MRI of the brain was performed utilizing various T1 and T2-weighted sequences in the axial , sagittal, and coronal planes. IV contrast was not administered for this examination. FINDINGS: Brain parenchyma: There is age-related involutional change noting mild subcortical and periventricula r microangiopathic disease. There is no hemorrhage or mass effect. There is a punctate focus of restr icted diffusion suggested in the right posterior frontal cortex on image #15. This cannot be corrobor ated on the ADC maps. No additional foci of restricted diffusion are identified. Cardenas-white matter di fferentiation is preserved. No extra-axial fluid collection is seen. The cerebellar tonsils are daniele l in configuration. Ventricles, sulci, and cisterns: Prominent secondary to involutional change. Pituitary and sella: Unremarkable. Intracranial vasculature: Normal flow voids are maintained at the skull base. Orbits: The bony orbits are grossly intact. Orbital contents are normal in appearance noting bilatera l ocular lens implants. Sinuses and mastoids: There is a small right mastoid effusion. Mild mucosal thickening is noted withi n the maxillary and ethmoid sinuses. Calvarium: Unremarkable. Cervical cord: Partially visualized cervical spinal cord is normal in morphology and signal intensity . IMPRESSION: 1. There is a punctate focus of apparent restricted diffusion in the high high posterior right fronta l lobe cortex. This could not be corroborated on the ADC and could represent a tiny acute to subacute infarct versus artifact. Correlate clinically. 2. No additional foci of restricted diffusion are identified. 3. There is no hemorrhage or mass effect. ACT 112: Negative or not required by law. Electronically signed by: Landon Mendoza M.D. 10/25/2023 11:04 AM
[2023-10-25] MEDS: GADOBUTROL 30ML VIAL IV ONE (11:12)
--- NOTE | 2023-10-25 11:21 | Magnetic Resonance Report ---
MR ANGIOGRAM OF THE BRAIN CLINICAL HISTORY: Syncope. COMPARISON STUDY: CT angiogram of the brain dated 07/13/2021. TECHNIQUE: 3-D [id number] MR angiography of the intracranial circulation is performed. 3-D tumble views are created and assessed. IV contrast was not administered for this examination. FINDINGS: The internal carotid arteries are widely patent bilaterally, as are the anterior and middle cerebral arteries. There is a beaded appearance of the distal cervical left internal carotid artery suggestive of fibromuscular dysplasia. There is also mild beading of the distal cervical portions of the right internal carotid artery. This was also seen on the 07/13/2021 CT angiogram of the brain. The vertebrobasilar system and posterior cerebral arteries are widely patent. The vertebral arteries are codominant. There is no aneurysm, high-grade stenosis, or focal vessel cutoff seen throughout the in tracranial circulation. The brain parenchyma is normal as visualized. IMPRESSION: 1. Unremarkable MR angiogram of the brain. 2. There is a beaded appearance of the distal cervical portions of the internal carotid arteries, gre ater on the left. This suggests fibromuscular dysplasia and was also seen previously. ACT 112: Negative or not required by law. Electronically signed by: Landon Mendoza M.D. 10/25/2023 11:18 AM
--- NOTE | 2023-10-25 11:51 | Magnetic Resonance Report ---
MR ANGIOGRAM OF THE NECK COMBO CLINICAL HISTORY: Syncope. Fibromuscular dysplasia. COMPARISON STUDY: CT angiogram of the neck dated 07/13/2021. TECHNIQUE: Axial 3-D [id number] MR angiography of the neck is performed. Subsequently, following the IV administration of 10.1 cc of Gadavist. Coronal MR angiogram of the neck was performed to maggy borate the findings. 3-D reformats are created and assessed. All measurements were calculated based o n NASCET criteria. FINDINGS: Visualized portions of the thoracic aorta are normal in caliber. The aortic arch demonstrat es standard 3-vessel anatomy. The subclavian arteries are widely patent bilaterally. The right common carotid artery is widely patent, as are the right internal and external carotid arteries. The left c ommon carotid artery is widely patent, as are the left internal and external carotid arteries. There is a beaded appearance of both internal carotid arteries, left greater than right. This is unchanged from previous and typical for fibromuscular dysplasia. The vertebral arteries are widely patent. The vertebral arteries are codominant. The visualized intracranial vessels at the skull base appear paten t. IMPRESSION: 1. There is a beaded appearance of the internal carotid arteries bilaterally. This is typical for fib romuscular dysplasia and unchanged from the prior CT angiogram. 2. Otherwise unremarkable MR angiogram of the neck. ACT 112: Negative or not required by law. Electronically signed by: Landon Mendoza M.D. 10/25/2023 11:49 AM
--- NOTE | 2023-10-25 11:54 | Discharge Summary ---
Date of Service October 25, 2023 Admission HPI Per Admitting Provider Patient is a 78-year-old female with past medical history of TIA, hypertension, hyperlipidemia who presents to the hospital with syncopal episodes. Patient was at home and having a conversation with her daughter when she became very upset. She started crying and shaking and felt that her nose was stuffed up. After she blew her nose she had a severe headache. EMS was called and on arrival patient had a syncopal episode for 10 seconds. Patient then had a another syncopal episode for about 10 seconds when the ED doc was talking to the patient. Some concerns of asystole for 5 seconds during this time. When patient arose from the syncopal episode she had nausea and vomiting with a severe headache. Later after CT patient had a another syncopal episode and again had dry heaving post syncopal episode. Patient states that she has never had this before. Patient has seen neurology in the past regarding her TIA symptoms. CTA of the head and neck showed findings suggestive of mild fibromuscular dysplasia. It was recommended to see vascular surgery regarding the possibility of mild fibromuscular dysplasia. Patient and daughter bedside were unsure if she ever followed up on this vascular surgery referral. Of note patient states that she got very worked up with talking to her daughter earlier today. Principal Diagnosis acute stroke Discharge Exam The patient is awake, alert and oriented 3, well developed and well nourished, normocephalic and atraumatic, lying in bed and in no acute distress. HEENT--PERRL, EOMI, mucous membranes and oropharynx mildly dry Neck--supple. No JVD. No bruits. Thyroid normal, trachea midline, no adenopathy. Heart--normal S1 and S2. No murmurs, rubs or gallops. Lungs--clear bilaterally, no respiratory distress, no accessory muscle use. Abdomen--normal bowel sounds and soft. Extremities--no cyanosis or clubbing. No edema. Dermatologic--normal skin turgor, normal color, no abnormal lymph nodes, no rash. Neurologic--cranial nerves II through XII grossly intact. Rheumatologic--normal range of motion. Psychiatric--normal affect. Discharge Data Allergies Allergy/AdvReac Type Severity Reaction Status Date / Time No Known Allergies Allergy Verified 01/30/22 09:52 Ordered Studies 10/25/23 02:24 CT head/brain wo con Stat 10/25/23 02:27 CT angio chest PE protocol Stat 10/25/23 04:01 MR angio head wo con Routine MR angio neck wo/w con Routine MRI Brain [MR brain wo con] Routine Hospital Course (1) Stroke: Small right frontal cortex infarct: -Patient with 3 episodes of syncope, 1 when EMS arrived, 2 in the ED. All lasting approximately 10 seconds. No witnessed seizure activity. -Head CT negative, chest CTA negative for PE, did show some atelectasis. -CBC benign, troponin negative. -CMP with slight hypokalemia of 3.3, otherwise unremarkable -Anticoagulation workup with beta-2 glycoprotein, cardiolipin, homocystine, lupus anticoagulation ordered. -CBC, CMP, hemoglobin A1c, lipid panel, and TSH ordered in AM. -Neck CTA from 2021 showed evidence suggesting of fibromuscular dysplasia. -Neurology note from 2021 recommended a referral to vascular surgery, patient is unsure if she ever followed up on this. -MRI showed evidence of a punctate restricted diffusion in the posterior right frontal cortex which could indicate a tiny acute to subacute infarct. Patient already on Plavix, will add aspirin and also asked her to continue atorvastatin. Urged her to follow-up with her regular PCP -MRA head w/o, MRA neck w and w/o,Still showed evidence of fibromuscular dysplasia -ECHO Was within normal limits, no evidence of shunt (2) Syncope: -Patient with 3 episodes of syncope, 1 when EMS arrived, 2 in the ED. All lasting approximately 10 seconds. No witnessed seizure activity. -Head CT negative, chest CTA negative for PE, did show some atelectasis. -CBC benign, troponin negative. -CMP with slight hypokalemia of 3.3, otherwise unremarkable -Anticoagulation workup with beta-2 glycoprotein, cardiolipin, homocystine, lupus anticoagulation ordered. -CBC, CMP, hemoglobin A1c, lipid panel, and TSH ordered in AM. -Neck CTA from 2021 showed evidence suggesting of fibromuscular dysplasia. -Neurology note from 2021 recommended a referral to vascular surgery, patient is unsure if she ever followed up on this. -MRI showed evidence of a punctate restricted diffusion in the posterior right frontal cortex which could indicate a tiny acute to subacute infarct. Patient already on Plavix, will add aspirin and also asked her to continue atorvastatin. Urged her to follow-up with her regular PCP -MRA head w/o, MRA neck w and w/o,Still showed evidence of fibromuscular dysplasia -ECHO Was within normal limits, no evidence of shunt -Patient already on Plavix at home, will add aspirin and also continue atorvastatin 40 mg daily (3) Hypokalemia: -Hypokalemia in the ED at 3.3. -Supplementation in the ED. Will continue to follow with daily labs (4) HLD (hyperlipidemia): -Holding home meds. -Lipid panel in the a.m. (5) HTN (hypertension): -Holding home meds. (6) TIA (transient ischemic attack): -Prior history of TIA. -Continue on atorvastatin and Plavix. Plan Fluids: LR at 125 mL/hr, 1 L Nutrition: N.p.o. Code status: Full code DVT ppx: SCDs Dispo: PCU/telemetry Total Time Total Time Spent Total Time Spent (In Minutes): 35 Discharge Plan Discharge Items Patient Disposition: Home - Self-Care Reason For Visit: SYNCOPE Discharge Diagnosis: acute stroke Activity: Resume your previous activity Non-emergency contact: Primary Care Provider Call non-emergency contact if: you have any medication questions Follow-up/Referrals: Marcellus Perez [Primary Care Provider] - Diet: Regular Addtl Attending Provider Instructions: please make appointment to see your pcp Pending Studies at Discharge: No Stand-Alone Forms: My General Compression, Smoking Cessation Medications and DC Order Prescriptions: New aspirin 81 mg Tablet,Delayed Release (Dr/Ec) 81 mg PO QAM Qty: 30 0RF Continued cholecalciferol (vitamin D3) [Vitamin D3] 1,000 unit Capsule 2,000 unit PO QAM Rx Instructions: OTC. unable to verify mirtazapine 15 mg tablet 15 mg PO UD Rx Instructions: unable to verify atorvastatin 40 mg Tablet 40 mg PO HS Qty: 30 0RF Rx Instructions: unable to verify, no fill history available losartan 100 mg tablet 100 mg PO DAILY Qty: 30 0RF clopidogrel [Plavix] 75 mg tablet 75 mg PO DAILY Qty: 30 0RF Discontinued rosuvastatin 20 mg tablet 20 mg PO UD Rx Instructions: 90 day supply filled 07/29/23 Discharge Orders: Discharge Order (Routine); Ordered 10/25/23 Ordered By: Jodi Brown Admission Data Admit Date/Time: 10/25/23 04:10 Attending Provider: Jodi Brown Admit Provider: Landon Felix Primary Care Provider: Marcellus Perez Coding Level of Care Code 32027 INP/OBS DISCH >30 MIN Diagnoses Stroke I63.9 Syncope R55 Syncope type: unspecified Hypokalemia E87.6 HLD (hyperlipidemia) E78.5 HTN (hypertension) I10 TIA (transient ischemic attack) G45.9 Time Spent (min) 35
[2023-10-25] MEDS: ACETAMINOPHEN 325 MG TAB PO PRN (11:57)
[2023-10-25] MEDS: CLOPIDOGREL BISULFATE 75 MG TAB PO SCH (11:57)
[2023-10-25] MEDS: ASPIRIN 81 MG ECTAB PO SCH (11:57)
[2023-10-25] MEDS ORDERED: ATORVASTATIN 40 MG TAB PO SCH ×2 (21:00)
== END 2023-10-25 13:13 | disposition home or self-care (01) ==
LOC: ED 01:47 → EDINP 01:47 → SUATTDRO 04:10 → 4W 05:52

== ENCOUNTER 2024-09-14 15:16 | Inpatient (IN) ==
--- NOTE | 2024-09-14 15:46 | Emergency Department Note ---
Impression & Plan Fracture of distal end of fibula, Injury of ankle, right, Ankle pain, right, Avulsion fracture of medial malleolus ED Provider Note CHIEF COMPLAINT: Right ankle pain/injury HISTORY OF PRESENTING ILLNESS: The patient is an 78-year-old female presents to the emergency department due to injuring her right ankle. She presents to triage in a wheelchair and states "I went to get in my car and I kind of went over my ankle and down on the ground". Reports injuring the right ankle. Denies hitting her head, LOC, or any other injury. Pain is controlled. REVIEW OF SYSTEMS: See HPI for pertinent positives and pertinent negatives. ALLERGIES: NKDA MEDICATIONS: See below PAST MEDICAL HISTORY: See below PHYSICAL EXAM: VITAL SIGNS - Vital signs and nursing notes were reviewed. GENERAL -78-year-old stated age and in noticeable discomfort throughout the exam. MUSCULOSKELETAL - Right ankle with a significant amount of edema. No erythema or ecchymosis appreciated. Tenderness to palpation of the medial aspect of the ankle. No tenderness extending into the foot or up the leg. 4/5 strength appreciated secondary to patient discomfort. Patient is able to wiggle her toes and flex and extend them. Patient is able to plantarflex and dorsiflex the ankle but with discomfort. NEUROLOGIC/VASCULAR - Neurovascularly intact distally with 2+ dorsalis pedis pulses palpated bilaterally. Normal sensation to light and sharp touch appreciated distally. DIFFERENTIAL DIAGNOSIS: Sprain, strain, lateral malleolus fracture, medial malleolus fracture, trimalleolar fracture, stress fracture, osteoarthritis, cellulitis, knee injury, dislocation, contusion, nerve injury, vessel injury, among others. ED COURSE AND MEDICAL DECISION MAKING: HISTORY FROM INDEPENDENT HISTORIAN: The patient herself. MEDICATIONS GIVEN: Tylenol 1000 mg PO INTERPRETATION OF LABS: No labs were obtained. INTERPRETATION OF IMAGING: Imaging studies were interpreted by myself and read by radiology as per the imaging section of this note. X-ray right ankle - Mildly displaced oblique fracture lateral fibula. Vertical fracture line to the lateral aspect distal tibia. Soft tissue swelling and lateral subcutaneous tissue. Calcaneal plantar spur. CT right ankle - Mild displaced acute traumatic oblique fracture in the distal fibula. Small acute traumatic avulsion fracture of the medial malleolus. CONSULTATIONS: - On-call [facility] orthopedics provider - Dr. Warren - Presented the patient to the provider. He personally evaluated the x-rays and determined that this would be operated on. Recommended admission and that he would operate on her in the morning. - Geraldine Pickett hospitalist - Dr. Moses - Presented the patient to the provider in my conversation with Dr. Warren. Discussed that because the patient is 78 years old and she is not able to ambulate on her own at home as well as the planned operation in the morning that she will be admitted to medicine until that time. She agrees and states that she will evaluate the patient. MDM SUMMARY: I evaluated the 78-year-old female presents to the ER due to a right ankle injury. Denies hitting her head, LOC, or any other injury. On exam she is sitting in a wheelchair. Her vitals are stable. Right ankle with significant amount of edema. No erythema or ecchymosis appreciated. Tenderness to palpation of the medial aspect of the ankle. No tenderness extending into the foot or the leg. 4/5 strength appreciated secondary to patient discomfort. Patient is able to wiggle her toes and flex and extend them. Patient is able to plantarflex and dorsiflex the ankle but with discomfort. Patient is neurovascularly intact. X-ray of the right ankle was ordered. Tylenol was given for symptom management. X-ray shows a mildly displaced oblique fracture of the lateral fibula and a vertical fracture line in the lateral aspect of the distal tibia. Soft tissue swelling laterally. The image was thoroughly reviewed with the patient and results were discussed. A consultation with Geraldine Pickett on-call orthopedic provider can be seen in detail above. He confirms that he is going to operate on the ankle so that she is able to ambulate successfully as this heals. I discussed this with the patient. She agrees and asked to call her daughter. Admission was placed with the on-call hospitalist which can be seen in detail above. They confirmed they would evaluate the patient and admit her to medicine for surgery in the morning. Instructed them to keep her NPO after midnight. The patient was admitted in stable condition. DIAGNOSIS: Fracture of the distal end of the fibula, right ankle injury, right ankle pain, avulsion fracture medial malleolus The chart was completed utilizing [employer] voice recognition software. Grammatical errors, random word insertions, pronoun errors, and incomplete sentences are an occasional consequence of this system due to software limitations, ambient noise, and hardware issues. Any formal questions or concerns about the content, text, or information contained within the body of this dictation should be directly addressed to the provider for clarification. Past Med/Surg History Problem List Avulsion fracture of medial malleolus (Acute) Ankle pain, right (Acute) Injury of ankle, right (Acute) Fracture of distal end of fibula (Acute) Fracture of right tibia and fibula Stroke Headache (Acute) Syncope (Acute) Hypokalemia HLD (hyperlipidemia) HTN (hypertension) TIA (transient ischemic attack) (Acute) Arthritis Medical History Lupus History of CVA (cerebrovascular accident) Hypercholesterolemia Hypertension Surgical History No pertinent past surgical history Family History Other Family history non-contributory Social History Smoking Status: Never smoker Second Hand Exposure: No; Do You Dip or Chew Tobacco: No; Tobacco Cessation Education Requested by Patient: No Hx Alcohol Use: Yes Alcohol type: wine Hx Substance Use: No Preferred Language: Ukrainian Communication Ability: Effective Conservation Or Heritage Architect Required: No Beliefs That Will Affect Care: Mandaen Mandaen Beliefs: Gnosticism. Current Living Situation: Alone Current Living Situation Comment: Lives in development in a double wide trailer. Other Information That Helps Us Care for You: No Feels Safe at Home: Yes Safety Concerns: Feels Safe At This Time Assistive Devices: Bedside Commode, Brace/Splint/Immobilizer, Hearing Aid - Bilateral, Hospital Bed, Walker and Other Assistive Devices Comment: Upper partial. Allergies Allergies Allergy/AdvReac Type Severity Reaction Status Date / Time No Known Allergies Allergy Verified 09/14/24 18:07 Home Meds Home Medications Medication Instructions Recorded Confirmed cholecalciferol (vitamin D3) 25 2,000 unit PO QAM 06/18/18 09/14/24 mcg (1,000 unit) capsule (Vitamin D3) red beet 500 mg capsule 500 mg PO DAILY 09/14/24 09/14/24 rosuvastatin 20 mg tablet 20 mg PO HS 09/14/24 09/14/24 trazodone 100 mg tablet 100 mg PO HS 09/14/24 09/14/24 Previous Rx's Medication Instructions Recorded clopidogrel 75 mg tablet (Plavix) 75 mg PO DAILY #30 tabs 07/14/21 losartan 100 mg tablet 100 mg PO DAILY #30 tabs 07/14/21 aspirin 81 mg tablet,delayed 81 mg PO QAM #30 tabs 10/25/23 release Results & Data (ED) Vital Signs Vital Signs - 24 hr 09/14/24 15:17 09/14/24 17:16 09/14/24 19:00 Temperature 36.7 C Temperature Source Temporal Artery Scan Pulse Rate 65 Pulse Rate [Right Brachial] 67 74 Pulse Rhythm [Right Brachial] Regular Regular Pulse Strength [Right Brachial] Normal Normal Respiratory Rate 18 18 18 Respiratory Effort / Characteristics Non-Labored Spontaneous Non-Labored Non-Labored Respiratory Depth Normal Normal Normal Respiratory Pattern Regular Regular Regular Blood Pressure 128/69 Blood Pressure [Right Arm] 126/73 124/69 Blood Pressure Mean 88 Blood Pressure Mean [Right Arm] 90 87 Blood Pressure Position [Right Arm] Lying Sitting Pulse Oximetry 96 98 96 Oxygen Delivery Method Room Air Room Air Room Air Sepsis Recent Fever Within 48 Hours No Sepsis New/Unexplained Change in Mental Status N/A Sepsis Action Taken by Nursing No Action Required Laboratory Data 09/14/24 20:34 09/14/24 20:34 Administered Medications Rosuvastatin Calcium (Rosuvastatin Calcium 20 Mg Tab) 20 mg PO [facility] Stop: 10/14/24 21:06 Last Admin: 09/14/24 21:45 Dose: 20 mg Documented By: PAULIE Trazodone HCl (Trazodone Hcl 100 Mg Tab) 100 mg PO [facility] Stop: 10/14/24 21:06 Last Admin: 09/14/24 21:45 Dose: 100 mg Documented By: PAULIE Discontinued Medications Acetaminophen (Acetaminophen 500 Mg Tab) 1,000 mg PO [facility] Stop: 09/14/24 17:16 Last Admin: 09/14/24 17:27 Dose: 1,000 mg Documented By: KAREEM Imaging Data Radiologist's Impression: Ankle X-Ray 09/14/24 15:22 EXAM: XR ankle RT min 3V routine CLINICAL HISTORY: Ankle trauma, no prior imaging TECHNIQUE: X-ray images of the right ankle were obtained in anteroposterior (AP), lateral, and mortise projections. COMPARISON: No prior studies available for comparison. FINDINGS: Bone Structure: A mildly displaced fracture line is noticed at the distal diaphysis of the lateral fibula Also, another fracture line is noted at the lateral aspect of the distal tibia Joint Spaces: Joint spaces are normal. No evidence of joint effusion or subluxation. Soft Tissues: Soft tissue swelling is seen at the lateral subcutaneous tissue No soft tissue calcifications or foreign bodies noted. Additional Findings: Calcaneal plantar spur is noted IMPRESSION: 1. A mildly displaced oblique fracture line was noticed at the distal diaphysis of the lateral fibula. 2. Another vertical fracture line was noted at the lateral aspect of the distal tibia. 3. Soft tissue swelling in the lateral subcutaneous tissue. 4. Calcaneal plantar spur is noted. Disclaimer: A subtle bone abnormality or fracture may not be readily apparent on X-rays, thus clinical correlation and further imaging including follow-up CT, MRI, or follow-up X-rays are advised as needed. Electronically signed by Nino Ramon 09-14-2024 4:[address] 09/14/24 17:37 CT RIGHT ANKLE WITHOUT CONTRAST: HISTORY: TECHNIQUE: CT of the right ankle was obtained without intravenous contrast. Coronal and sagittal reformats were created. COMPARISON: Right ankle radiographs from earlier the same day. FINDINGS: There is a mildly displaced acute traumatic oblique fracture in the distal fibula (Gary classification type B). There is a small calcific density by the medial malleolus likely representing acute traumatic avulsion fracture IMPRESSION: Mildly displaced acute traumatic oblique fracture in the distal fibula (Gary classification type B). Small acute traumatic avulsion fracture of the medial malleolus Electronically signed by Amilcar Bryant 09-14-2024 6:57 PM Discharge Plan Visit Data Chief Complaint: Ankle Pain Stated Complaint: RT ANKLE PAIN/INJURY ED Provider: Landon Hunt ED Midlevel Provider: Marylu Nuñez Discharge Problem: Fracture of distal end of fibula, Injury of ankle, right, Ankle pain, right, Avulsion fracture of medial malleolus Patient Disposition: Admitted As Inpatient Condition: Good Discharge Instructions Interventions: ED Discharge Assessment Last Done: 09/14/24 20:20 Discharge Problem: Fracture of distal end of fibula Qualifiers: Encounter type: initial encounter Fracture type: closed Fracture morphology: o ther fracture Laterality: right Qualified Code(s): S82.831A - Other fracture of upper and lower end of right fibula, initial encounter for closed fracture Injury of ankle, right Qualifiers: Encounter type: initial encounter Qualified Code(s): S99.911A - Unspecified injury of right ankle, initial encounter Ankle pain, right Qualifiers: Chronicity: acute Qualified Code(s): M25.571 - Pain in right ankle and joints of right foot Avulsion fracture of medial malleolus Qualifiers: Encounter type: initial encounter Fracture type: closed Laterality: right Q ualified Code(s): S82.51XA - Displaced fracture of medial malleolus of right tibia, initial encounter for closed fracture
--- NOTE | 2024-09-14 16:43 | XRay Report ---
EXAM: XR ankle RT min 3V routine CLINICAL HISTORY: Ankle trauma, no prior imaging TECHNIQUE: X-ray images of the right ankle were obtained in anteroposterior (AP), lateral, and mortise projections. COMPARISON: No prior studies available for comparison. FINDINGS: Bone Structure: A mildly displaced fracture line is noticed at the distal diaphysis of the lateral fibula Also, another fracture line is noted at the lateral aspect of the distal tibia Joint Spaces: Joint spaces are normal. No evidence of joint effusion or subluxation. Soft Tissues: Soft tissue swelling is seen at the lateral subcutaneous tissue No soft tissue calcifications or foreign bodies noted. Additional Findings: Calcaneal plantar spur is noted IMPRESSION: 1. A mildly displaced oblique fracture line was noticed at the distal diaphysis of the lateral fibula. 2. Another vertical fracture line was noted at the lateral aspect of the distal tibia. 3. Soft tissue swelling in the lateral subcutaneous tissue. 4. Calcaneal plantar spur is noted. Disclaimer: A subtle bone abnormality or fracture may not be readily apparent on X-rays, thus clinical correlation and further imaging including follow-up CT, MRI, or follow-up X-rays are advised as needed. Electronically signed by Nino Ramon 09-14-2024 4:42 PM
[2024-09-14] MEDS: ACETAMINOPHEN 500 MG TAB PO STA (17:27)
--- NOTE | 2024-09-14 18:33 | Emergency Department Note ---
ED Visit Note I was consulted by the Advanced Practice Provider. I personally made/approved the management plan and take responsibility for the patient management. I performed a substantive portion of the visit. This includes the aspects of: [-I independently interpreted the following studies:][Right ankle film shows a distal fibular fracture with minimal displacement. No joint dislocation.] Patient presents after twisting, she injured her right ankle, this was the only injury reported. She does have a fracture by x-ray, orthopedics was consulted, the patient is in need of a hospital stay and likely surgical orthopedic invention. .
--- NOTE | 2024-09-14 18:58 | CT Scan Report ---
CT RIGHT ANKLE WITHOUT CONTRAST: HISTORY: TECHNIQUE: CT of the right ankle was obtained without intravenous contrast. Coronal and sagittal reformats were created. COMPARISON: Right ankle radiographs from earlier the same day. FINDINGS: There is a mildly displaced acute traumatic oblique fracture in the distal fibula (Gary classification type B). There is a small calcific density by the medial malleolus likely representing acute traumatic avulsion fracture IMPRESSION: Mildly displaced acute traumatic oblique fracture in the distal fibula (Gary classification type B). Small acute traumatic avulsion fracture of the medial malleolus Electronically signed by Amilcar Bryant 09-14-2024 6:57 PM
--- NOTE | 2024-09-14 19:31 | History & Physical Report ---
Date of Service September 14, 2024 Assessment & Plan (1) Fracture of right tibia and fibula: Plan 78-year-old female PMHx hypokalemia, HLD, HTN, and prior TIA presenting s/p mechanical fall now complaining of R ankle pain. ED evaluation reveals no leukocytosis, H&H stable 14.6/42.9; CMP grossly unremarkable with chloride 108 and BUN/creatinine ratio 24.4; EKG pending; ankle XR (R) displaced oblique fracture line at distal diaphysis lateral fibula, vertical fracture line lateral aspect distal tibia, soft tissue swelling lateral subcutaneous tissue, calcaneal plantar spur; lower extremity CT (R) mildly displaced acute traumatic oblique fracture distal fibula (Gary classification type B), small acute traumatic avulsion fracture medial malleolus; provided with Tylenol 1g po in ED. #Fracture of R tibia and fibula/Medial malleolus Presenting after rolling ankle when trying to get into the car, landing on her R ankle and falling to ground. Patient is on DAPT at baseline. - CBC without leukocytosis, H/H stable 14.6/42.9 - CBC am - Ankle XR (R) displaced oblique fracture line at distal diaphysis lateral fibula, vertical fracture line lateral aspect distal tibia, soft tissue swelling lateral subcutaneous tissue - RLE CT mildly displaced acute traumatic oblique fracture distal fibula (Gary classification type B), small acute traumatic avulsion fracture medial malleolus - NPO midnight - LR @ 100 mL/hr (echo 10/2023 with EF 60 to 65%) - Pain management acetaminophen, morphine for severe pain - Zofran prn N/V - Ortho consulted- appreciate input and recs -- OR scheduled for 09/14/2024 #HLD- Rosuvastatin - continue #HTN- Losartan - continue #H/o TIA- Aspirin, Plavix - HOLD pending possible surgical intervention #Sleep- Trazodone - continue Dispo: Admit, med/sx VTE Prophylaxis: SCDs pending surgical intervention This document was dictated utilizing [employer]. Please excuse any grammatical errors that may be secondary to use of this software. Admission and Anticipated Discharge Date Admission Date: 09/14/2024 History of Present Illness Chief Complaint: R ankle pain Primary Care Provider: Marcellus Perez 78-year-old female PMHx hypokalemia, HLD, HTN, and prior TIA presenting s/p mechanical fall now complaining of R ankle pain. Patient states that she was trying to get into her car and twisted her ankle at that time, causing her R ankle to roll under her and she landed on the ground. She did not hit her head or have any additional injuries. There was only thing that was time to help her and she feels as though the leg is not trying to help with move that this would not occur. Patient states that she just had home around and, did not hit her head. Otherwise has no complaints. States that her pain is very manageable at this time but she does notice a "twinge" when she moves her RLE. Denying chest pain, shortness of breath, palpitations, abdominal pain, N/V/D/C, numbness/tingling, fever/chills, LUTS, URI symptoms, syncope, weakness, or LOC. ED evaluation reveals no leukocytosis, H&H stable 14.6/42.9; CMP grossly unremarkable with chloride 108 and BUN/creatinine ratio 24.4; EKG pending; ankle XR (R) displaced oblique fracture line at distal diaphysis lateral fibula, vertical fracture line lateral aspect distal tibia, soft tissue swelling lateral subcutaneous tissue, calcaneal plantar spur; lower extremity CT (R) mildly displaced acute traumatic oblique fracture distal fibula (Gary classification type B), small acute traumatic avulsion fracture medial malleolus; provided with Tylenol 1g po in ED. Please see Dr. Moses's attestation for adjustments/additions to treatment plan. Allergies Allergy/AdvReac Type Severity Reaction Status Date / Time No Known Allergies Allergy Verified 09/14/24 18:07 Home Medications Medication Instructions Recorded Confirmed Type cholecalciferol (vitamin D3) 25 2,000 unit PO QAM 06/18/18 09/14/24 History mcg (1,000 unit) capsule (Vitamin D3) clopidogrel 75 mg tablet (Plavix) 75 mg PO DAILY #30 tabs 07/14/21 09/14/24 Rx losartan 100 mg tablet 100 mg PO DAILY #30 tabs 07/14/21 09/14/24 Rx aspirin 81 mg tablet,delayed 81 mg PO QAM #30 tabs 10/25/23 09/14/24 Rx release red beet 500 mg capsule 500 mg PO DAILY 09/14/24 09/14/24 History rosuvastatin 20 mg tablet 20 mg PO HS 09/14/24 09/14/24 History trazodone 100 mg tablet 100 mg PO HS 09/14/24 09/14/24 History Past Med/Surg History Problem List (Updated 09/14/24 @ 21:46 by Ale Khalil PA-C) Fracture of right tibia and fibula Stroke Headache (Acute) Syncope (Acute) Hypokalemia HLD (hyperlipidemia) HTN (hypertension) TIA (transient ischemic attack) (Acute) Arthritis Medical History (Updated 09/14/24 @ 21:46 by Ale Khalil PA-C) Lupus History of CVA (cerebrovascular accident) Hypercholesterolemia Hypertension Surgical History No pertinent past surgical history Family History Other Family history non-contributory Social History Smoking Status: Never smoker Second Hand Exposure: No; Do You Dip or Chew Tobacco: No; Hx Alcohol Use: No Hx Substance Use: No Preferred Language: Scottish Communication Ability: Effective Siphon Operator Required: No Beliefs That Will Affect Care: None Current Living Situation: Alone Feels Safe at Home: Yes Assistive Devices: None Review of Systems Review of Systems: All systems reviewed & are unremarkable except as noted in Subjective Physical Exam Physical Exam: General: No acute distress Skin: Warm and dry Head: Normocephalic, atraumatic Eyes: PERRL, conjunctivae clear, sclera non-icteric ENT: External ear and ear canal without swelling; nose atraumatic; good dentition, tongue normal appearance, pharynx normal Neck: Supple, no LAD Cardio: RRR, no M/G/R, S1 and S2 normal Resp: No respiratory distress, Lungs CTA in all lobes bilaterally, no wheezes, rales, or rhonchi Abdomen: Soft, symmetric, nontender; No masses or hepatosplenomegaly; Bowel sounds normoactive MSK: R ankle/LE wrapped; No deformities; pulses palpable and equal; no edema. Neuro: Awake, alert; Sensation intact bilaterally; CN grossly intact Psych: Appropriate mood and affect; good judgement and insight. Results & Data Results & Data Vital Signs (Past 12 Hours) Vital Signs Temp Pulse Resp BP Pulse Ox O2 Del Method 09/14/24 15:17 36.7 C 65 18 128/69 96 Room Air Laboratory Results 09/14/24 20:34 WBC 8.14 RBC 4.74 Hgb 14.6 Hct 42.9 MCV 90.5 MCH 30.8 MCHC 34.0 RDW Std Deviation 47.0 H RDW Coeff of [place] 14.3 Plt Count 181 MPV 9.3 L Sodium 141 Potassium 4.2 Chloride 108 H Carbon Dioxide 28 Anion Gap 5 BUN 20 Creatinine 0.82 Est Cr Clr Drug Dosing Not Reportable eGFR 72.27 BUN/Creatinine Ratio 24.4 H Glucose 94 Calcium 9.5 Total Bilirubin 0.6 AST 18 ALT 16 Alkaline Phosphatase 86 Total Protein 7.1 Albumin 4.1 Globulin 3.0 Albumin/Globulin Ratio 1.4 Diagnostic Findings Ankle X-Ray 09/14/24 15:22 EXAM: XR ankle RT min 3V routine CLINICAL HISTORY: Ankle trauma, no prior imaging TECHNIQUE: X-ray images of the right ankle were obtained in anteroposterior (AP), lateral, and mortise projections. COMPARISON: No prior studies available for comparison. FINDINGS: Bone Structure: A mildly displaced fracture line is noticed at the distal diaphysis of the lateral fibula Also, another fracture line is noted at the lateral aspect of the distal tibia Joint Spaces: Joint spaces are normal. No evidence of joint effusion or subluxation. Soft Tissues: Soft tissue swelling is seen at the lateral subcutaneous tissue No soft tissue calcifications or foreign bodies noted. Additional Findings: Calcaneal plantar spur is noted IMPRESSION: 1. A mildly displaced oblique fracture line was noticed at the distal diaphysis of the lateral fibula. 2. Another vertical fracture line was noted at the lateral aspect of the distal tibia. 3. Soft tissue swelling in the lateral subcutaneous tissue. 4. Calcaneal plantar spur is noted. Disclaimer: A subtle bone abnormality or fracture may not be readily apparent on X-rays, thus clinical correlation and further imaging including follow-up CT, MRI, or follow-up X-rays are advised as needed. Electronically signed by Nino Ramon 09-14-2024 4:[address] 09/14/24 17:37 CT RIGHT ANKLE WITHOUT CONTRAST: HISTORY: TECHNIQUE: CT of the right ankle was obtained without intravenous contrast. Coronal and sagittal reformats were created. COMPARISON: Right ankle radiographs from earlier the same day. FINDINGS: There is a mildly displaced acute traumatic oblique fracture in the distal fibula (Gary classification type B). There is a small calcific density by the medial malleolus likely representing acute traumatic avulsion fracture IMPRESSION: Mildly displaced acute traumatic oblique fracture in the distal fibula (Gary classification type B). Small acute traumatic avulsion fracture of the medial malleolus Electronically signed by Amilcar Bryant 09-14-2024 6:57 PM Medications Administered Acetaminophen 1 g p.o. Code Status & VTE Plan Code Status Full Supervising Physician Co-Signing Physician Notes Patient seen examined, chart reviewed, case discussed with SALLY Khalil I agree with assessment plan as document above. In brief, patient is an 78-year-old female with history of hypertension, hyperlipidemia, prior stroke, living independently and fairly active presenting after rolling her ankle while trying to get into the car. Incident resulted in a mildly displaced acute traumatic oblique fracture in the distal fibula and small acute traumatic avulsion fracture of the medial malleolus. Pain is well-controlled at present, patient is frustrated with the incident but otherwise has no complaints Case was discussed with Ortho and plans for OR in the morning On physical exam patient is resting comfortably, no acute distress Skinwarm, dry, intact, no rash or lesions HEENTmoist mucous membranes, neck supple Heart+ S1, S2, regular, no murmur/rub/gallops LungsCTA anteriorly Abdomenpositive bowel sounds, soft, nontender, nondistended Extremitiesright lower extremity elevated with dressing in place, toes neurovascularly intact with good capillary refill Labs and images reviewed Assessment/[id number] female with history of hypertension, hyperlipidemia, prior stroke presenting after rolling her ankle which resulted in distal fibula fracture and small avulsion fraction of the medial malleolus Pain control with Tylenol and morphine as needed, elevate extremity, ice as needed Hold aspirin, Plavix and losartan for now 4 OR in the morning N.p.o. after midnightLR at 80 mg/h to start at midnight Appreciate orthopedic surgery assistance Remainder as above PG Care Time/CCT Total # of Minutes Spent Total Time Spent with Patient: Total time spent is greater than 50% in coordination of care (as documented) at patient's floor/unit and/or counseling patient: Coding Level of Care Code 03441 INT INP/OBS CARE MIN Diagnoses Fracture of right tibia and fibula S82.201A; S82.401A
[2024-09-14] MEDS ORDERED: MoRPHine SULFATE 2 MG/ML CARP IV PRN (19:55)
[2024-09-14] MEDS ORDERED: ACETAMINOPHEN 325 MG TAB PO PRN (19:55)
[2024-09-14] MEDS ORDERED: ACETAMINOPHEN 1,000 MG/100 ML VIAL IV PRN (19:57)
[2024-09-14 20:44] LABS: Hematocrit (blood only) 42.9 % (37.0-47.0); Hemoglobin 14.6 g/dl (12.0-16.0); Mean Corpuscular Hemoglobin 30.8 pg (25.0-34.0); Mean Corpuscular Volume 90.5 fL (80.0-100.0); Mean Platelet Volume 9.3 fL (9.4-12.4); Platelet Count 181 K/uL (130-400); RDW Coefficient of Variation 14.3 % (11.5-14.5); Red Blood Count 4.74 M/uL (4.20-5.40); White Blood Count 8.14 K/ul (4.8-10.8)
[2024-09-14 21:00] LABS: Alanine Aminotransferase 16 U/L (7-52); Albumin Globulin Ratio 1.4 (0.9-2); Albumin Level 4.1 gm/dl (3.4-5.0); Alkaline Phosphatase 86 U/L (34-104); Anion Gap 5 (3-11); Aspartate Aminotransferase 18 U/L (13-39); BUN Creatinine Ratio 24.4 (10-20); Bilirubin,Total 0.6 mg/dl (0.2-1.0); Blood Urea Nitrogen 20 mg/dl (6-23); Calcium 9.5 mg/dl (8.6-10.3); Carbon Dioxide 28 mmol/L (21-32); Chloride 108 mmol/L (98-107); Glucose 94 mg/dl (70-99(Fasting)); Potassium 4.2 mmol/L (3.5-5.1); Sodium 141 mmol/L (136-145); Total Protein 7.1 gm/dl (6.0-8.3)
[2024-09-14] MEDS ORDERED: ONDANSETRON INJ 2 MG/ML 2 ML VIAL IV PRN (21:07)
[2024-09-14] MEDS ORDERED: POLYETHYLENE (MIRALAX) 17 GM PACK PO PRN (21:07)
[2024-09-14] MEDS ORDERED: MELATONIN 3 MG TAB PO PRN (21:07)
[2024-09-14] MEDS: ROSUVASTATIN CALCIUM 20 MG TAB PO SCH (21:45)
[2024-09-14] MEDS: traZODone HCL 100 MG TAB PO SCH (21:45)
[2024-09-15] MEDS: LACTATED RINGER'S 1,000 ML IV SCH (00:02)
[2024-09-15] MEDS: MoRPHine SULFATE 2 MG/ML CARP IV PRN (07:25)
[2024-09-15 08:03] LABS: Hematocrit (blood only) 40.5 % (37.0-47.0); Hemoglobin 13.8 g/dl (12.0-16.0); Mean Corpuscular Hemoglobin 30.8 pg (25.0-34.0); Mean Corpuscular Hgb Conc 34.1 g/dL (32.0-36.0); Mean Corpuscular Volume 90.4 fL (80.0-100.0); Mean Platelet Volume 9.7 fL (9.4-12.4); Platelet Count 169 K/uL (130-400); RDW Coefficient of Variation 14.2 % (11.5-14.5); RDW Standard Deviation 47.6 fL (36.4-46.3); Red Blood Count 4.48 M/uL (4.20-5.40); White Blood Count 6.35 K/ul (4.8-10.8)
[2024-09-15 08:19] LABS: BUN Creatinine Ratio 28.6 (10-20); Calcium 9.2 mg/dl (8.6-10.3); Creatinine Clr Calc Pharmacy 64.6 ml/min
[2024-09-15] MEDS ORDERED: LOSARTAN POTASSIUM 50 MG TAB PO SCH (09:00)
--- NOTE | 2024-09-15 09:06 | Orthopedic Consultation ---
Date of Consultation September 15, 2024 Assessment & Plan (1) Fracture of distal end of fibula: I discussed the diagnosis and treatment options with the patient. We reviewed her x-rays and CT scan. The fracture is mildly displaced but this could be treated in a cast. The downside of this would be prolonged weightbearing and increased risk of malunion. She would be a candidate for surgery which would have the advantages of anatomically reducing the fracture and allowing her earlier weightbearing. This would not be for at least 2 to 4 weeks however. After reviewing all of her options, risks and benefits of surgery, expected outcomes of surgery, she elects to proceed with surgery. I signed her surgical site. Informed consent was obtained from the patient. She was placed back into an Kevin wrap. She will elevate her leg and continue on bedrest. Will plan on surgery later today. She has been n.p.o. since midnight. History of Present Illness Attending Physician: Eros Chavira MD History of Present Illness 78-year-old female, lives independently at home near [place]. Yesterday she was getting into a car when she fell with her ankle landing underneath her. She was unable to weight-bear afterwards and was brought to the emergency room where x-rays were performed demonstrating a fracture of the distal fibula. There was also a concern for a distal tibia fracture. Therefore CT scan was obtained which showed that the fracture was isolated to the lateral malleolus. Patient has a medical history of 3 strokes with no neurologic deficits and takes aspirin and Plavix as a result of this. She has hypertension hyperlipidemia she also takes medication for but otherwise is fairly healthy and independent. She denies any old problems with her ankle before this injury. She says she has a little bit of neuropathy in her feet at baseline but this is unchanged since yesterday. Allergies Allergy/AdvReac Type Severity Reaction Status Date / Time No Known Allergies Allergy Verified 09/14/24 18:07 Home Medications Medication Instructions Recorded Confirmed Type cholecalciferol (vitamin D3) 25 2,000 unit PO QAM 06/18/18 09/14/24 History mcg (1,000 unit) capsule (Vitamin D3) clopidogrel 75 mg tablet (Plavix) 75 mg PO DAILY #30 tabs 07/14/21 09/14/24 Rx losartan 100 mg tablet 100 mg PO DAILY #30 tabs 07/14/21 09/14/24 Rx aspirin 81 mg tablet,delayed 81 mg PO QAM #30 tabs 10/25/23 09/14/24 Rx release red beet 500 mg capsule 500 mg PO DAILY 09/14/24 09/14/24 History rosuvastatin 20 mg tablet 20 mg PO HS 09/14/24 09/14/24 History trazodone 100 mg tablet 100 mg PO HS 09/14/24 09/14/24 History Patient History Medical History Lupus History of CVA (cerebrovascular accident) Hypercholesterolemia Hypertension Surgical History No pertinent past surgical history Family History Other Family history non-contributory Social History Smoking Status: Never smoker Second Hand Exposure: No; Do You Dip or Chew Tobacco: No; Tobacco Cessation Education Requested by Patient: No Hx Alcohol Use: Yes Alcohol type: wine Hx Substance Use: No Preferred Language: Japanese Communication Ability: Effective Rod Bending Machine Operator Required: No Beliefs That Will Affect Care: Mormonism Mormonism Beliefs: Zoroastrianism. Current Living Situation: Alone Current Living Situation Comment: [place] in [place] in a double wide trailer. Other Information That Helps Us Care for You: No Feels Safe at Home: Yes Safety Concerns: Feels Safe At This Time Assistive Devices: Bedside Commode, Brace/Splint/Immobilizer, Hearing Aid - Bilateral, Hospital Bed, Walker and Other Assistive Devices Comment: Upper partial. Physical Exam Physical Exam: On exam she is a pleasant female alert and oriented x 3 in no acute distress. Right lower extremity exam: Her splint was removed. She has some swelling to a moderate degree around the ankle with some bruising more laterally than medially. She still has some skin wrinkles. She has a palpable dorsalis pedis pulse. She wiggles all of her toes without difficulty. Sensory intact to light touch throughout the entirety of the foot. No skin lesions. Results & Data Vital Signs (Past 12 Hours) Vital Signs Temp Pulse Resp BP Pulse Ox O2 Del Method 09/15/24 08:12 36.7 C 69 17 148/78 H 96 Room Air Diagnostic Findings Results reviewed: I independently interpreted her ankle x-rays and her CT scan. She has a Gary B ankle fracture with no obvious syndesmotic widening. (1) Fracture of distal end of fibula Encounter type: initial encounter Fracture morphology: other fracture Fracture type: closed Laterality: right Qualified Code(s): S82.831A - Other fracture of upper and lower end of right fibula, initial encounter for closed fracture
--- NOTE | 2024-09-15 13:16 | Anesthesiology Consultation ---
Date of Service September 15, 2024 Assessment & Plan (1) Encounter for pre-operative examination: Chart Review Chart Review: Acceptable Risk for Surgery and Patient NOT seen in Pre Admission Testing Consults Requested none History Surgery Operation Date: 09/15/24 08:20 Proposed Procedures p Right Open Reduction Internal Fixation Ankle - Jacobo Warren MD Height/Weight Height: 5 ft 4 in Weight: 93.4 kg Allergies Allergy/AdvReac Type Severity Reaction Status Date / Time No Known Allergies Allergy Verified 09/14/24 18:07 Medications Home Medications Medication Instructions Recorded Confirmed Last Taken cholecalciferol (vitamin D3) 25 2,000 unit PO QAM 06/18/18 09/14/24 09/14/24 mcg (1,000 unit) capsule (Vitamin D3) clopidogrel 75 mg tablet (Plavix) 75 mg PO DAILY #30 tabs 07/14/21 09/14/24 09/14/24 losartan 100 mg tablet 100 mg PO DAILY #30 tabs 07/14/21 09/14/24 09/14/24 aspirin 81 mg tablet,delayed 81 mg PO QAM #30 tabs 10/25/23 09/14/24 09/14/24 release red beet 500 mg capsule 500 mg PO DAILY 09/14/24 09/14/24 09/14/24 rosuvastatin 20 mg tablet 20 mg PO HS 09/14/24 09/14/24 09/13/24 trazodone 100 mg tablet 100 mg PO HS 09/14/24 09/14/24 09/13/24 Active Medications Generic Name Dose Route Start Last Admin Trade Name Freq PRN Reason Stop Dose Admin Morphine Sulfate 2 mg 09/14/24 19:55 09/15/24 07:25 Morphine Sulfate 2 Mg/Ml Carp IV 09/28/24 19:54 2 mg Q3H PRN Administration Pain (6,7,8,9,10) Rosuvastatin Calcium 20 mg 09/14/24 21:07 09/14/24 21:45 Rosuvastatin Calcium 20 Mg Tab PO 10/14/24 21:06 20 mg HS МАРИНА Administration Trazodone HCl 100 mg 09/14/24 21:07 09/14/24 21:45 Trazodone Hcl 100 Mg Tab PO 10/14/24 21:06 100 mg HS МАРНИА Administration NPO Date Last Intake of Fluids: 09/14/24 Time Last Intake of Fluids: 23:59 Date Last Intake of Solids: 09/14/24 Time Last Intake of Solids: 23:59 Past Medical History Medical History (Updated 09/15/24 @ 13:15 by Reece Ryan MD) Encounter for pre-operative examination Lupus History of CVA (cerebrovascular accident) Hypercholesterolemia Hypertension Past Family History Family History Other Family history non-contributory Past Surgical History Surgical History No pertinent past surgical history Social History Smoking Status: Never smoker Do You Dip or Chew Tobacco: No Hx Alcohol Use: Yes Alcohol type: wine alcohol intake frequency: holidays/special occasions only Hx Substance Use: No substance use type: does not use Physical Exam Vital Signs Last Vital Signs Temp 36.7 C 09/15/24 08:12 Pulse 69 09/15/24 08:12 Resp 17 09/15/24 08:12 BP 148/78 H 09/15/24 08:12 Pulse Ox 96 09/15/24 08:12 O2 Del Method Room Air 09/15/24 08:12 Testing Laboratory Results 09/15/24 07:36 09/15/24 07:36 Electrocardiogram Date: 09/15/24 HR 66. NSR. Normal ECG. Echocardiogram Date: 10/25/23 LV systolic function is normal. EF 60-65% LV wall motion is normal. Mild LVH RV is mildly dilated RV systolic function is normal. No sig valvular disease.
[2024-09-15] MEDS ORDERED: MIDAZOLAM HCL 1 MG/ML 2ML VIAL ONE (13:38)
[2024-09-15] MEDS ORDERED: ROPIVACAINE 0.5% 5 MG/ML 30 ML VIAL ONE (13:41)
[2024-09-15] MEDS ORDERED: ONDANSETRON INJ 2 MG/ML 2 ML VIAL IV PRN ×2 (13:50→15:41)
[2024-09-15] MEDS ORDERED: ePHEDrine sulfate 50 MG/ML AMP IV PRN (13:50)
[2024-09-15] MEDS ORDERED: fentaNYL citrate PF 100 MCG/2 ML VIAL IV PRN (13:50)
[2024-09-15] MEDS ORDERED: ATROPINE SULFATE 0.1 MG/ML 10ML SYR IV PRN (13:50)
[2024-09-15] MEDS ORDERED: ROCURONIUM BROMIDE 10 MG/ML 5 ML VIAL IV ONE (13:55)
[2024-09-15] MEDS ORDERED: LIDOCAINE 2% 2 ML VIAL/AMP(20MG/ML) INFIL ONE (13:56)
[2024-09-15] MEDS ORDERED: fentaNYL citrate PF 100 MCG/2 ML VIAL ONE (13:56)
[2024-09-15] MEDS ORDERED: PROPOFOL IV EMULSION 10 MG/ML 20 ML VIAL IV ONE (14:30)
[2024-09-15] MEDS ORDERED: PHENYLEPHRINE 100MCG/ML 5ML SYR ONE (14:30)
[2024-09-15] MEDS ORDERED: ONDANSETRON INJ 2 MG/ML 2 ML VIAL ONE (14:30)
[2024-09-15] MEDS ORDERED: ePHEDrine sulfate 50 MG/ML AMP ONE (14:42)
[2024-09-15] MEDS ORDERED: SUGAMMADEX SODIUM 200 MG/2 ML VIAL IV ONE (14:57)
--- NOTE | 2024-09-15 15:23 | Fluoroscopy Report ---
FL ankle RT min 3V RTN CLINICAL HISTORY: RT ANKLE ORIF COMPARISON STUDY: 09/14/2024 FLUOROSCOPY TIME: 20 seconds FLUOROSCOPY IMAGES: 4 EXPOSURE DOSE: 0.6 mGy FINDINGS: Fluoroscopy was provided for internal fixation of the distal fibula fracture. IMPRESSION: Intraoperative fluoroscopy. ACT 112: Negative or not required by law. Electronically signed by: Albino Dillon M.D. 09/15/2024 3:22 PM
--- NOTE | 2024-09-15 15:28 | Operative Report ---
Post Operative Report Pre & Post Diagnosis Operation Date: 09/15/24 08:20 preoperative diagnosis: Right distal fibula fracture Postoperative diagnosis: Right distal fibula fracture I identified the patient and participated in the time-out.: Yes Procedure Operation Date: 09/15/24 08:20 open reduction internal fixation right distal fibula fracture Surgeon Jacobo Warren MD Ekg Monitor RAJANI Peters PA-C. No resident or fellow was available to assist. Estimated Blood Loss 25 Findings Consistent with Post-Op Diagnosis Specimens None Anesthesia Type General Regional Complications none Disposition Disposition: Recovery Room Indications 78-year-old female, lives independently at home, injured her right ankle last night. She was admitted to hospital due to inability to ambulate and pain control. I saw her this morning. I had a long discussion with her about her diagnosis and treatment options. We talked about nonsurgical management in a cast versus surgery and the risks and benefits of each option. Surgery is indicated to reduce and fixate her fracture and allow earlier mobilization and independence. We talked about expected outcomes of surgery and postoperative rehabilitation. I answered all of her questions. After reviewing all of her options she elected to proceed with surgery. All questions were answered. Informed consent was signed. Description of Procedure Patient was identified in the preoperative holding area where her surgical site was marked. She was given a block by anesthesia then brought back to the operating room where she moved onto the operating room table and general anesthesia was administered. A bump was placed underneath the right hip. All bony prominences were padded. Perioperative antibiotics and 1 g of IV tranexamic acid were administered. She was prepped and draped in the usual sterile fashion. Prior to incision a multidisciplinary timeout was called. All in the room in agreement. I began by exsanguinating the limb with an Esmarch bandage. Tourniquet was inflated to 250 mmHg. I made a 10 cm long incision starting at the tip of the lateral malleolus and extending proximally. I dissected down through subcutaneous tissues which were hemorrhagic as a result of her fracture. The fibula was exposed. The fibular fracture was easily identified. I cleared off the periosteum around the fracture site so I could visualize the fractured edges. The fracture was then anatomically reduced using a pointed tenaculum clamp. An Arthrex 5 hole distal locking fibula plate was then applied to the bone and secured with BB tacks. Minor modifications to the position of the plate were made to optimize its coverage of the bone. Once this was confirmed a single 3.5 mm cortical screw was placed in bicortical fashion proximal to the fracture. Next, the distal locking holes were filled using fluoroscopic guidance. These were unicortical screws where we drilled to the far cortex but not through the cortex to protect the articular cartilage of the ankle. Next 2 more 3.5 mm cortical screws were placed proximal to the fracture. This gave us 6 cortices of fixation above and 5 cortices of fixation below the fracture. Clamp was removed. The fracture remained anatomically reduced with visual inspection. Fluoroscopy was brought in and we confirmed reduction and anatomic reduction of the fracture. Hardware was in good position. I was happy with the screw lengths. An external rotation stress test was then performed. There was no medial clear space or syndesmotic widening. Therefore no additional fixation was indicated. Tourniquet was then let down. Meticulous hemostasis was ensured. Wounds irrigated out with copious amounts normal saline. We then began to close. Deep dermal layer was closed with inverted 3-0 Vicryl sutures. 3-0 nylon sutures were used in horizontal mattress fashion for the skin. sterile dressings were applied followed by posterior and U plaster slab splint with the ankle held in neutral. Once the splint hardened patient was awoke from anesthesia and transferred to the recovery room in stable condition. Postoperative course: Patient will be admitted overnight to the internal medicine team. She will work with physical therapy tomorrow. She is nonweightbearing on this right lower extremity for the next 2 weeks. 2 weeks from now we will plan on removing her splint and her sutures and getting x-rays in my clinic. we will consider allowing her to begin weightbearing at that time depending on the healing status of her wound. She will continue her aspirin and Plavix for DVT prophylaxis. I attest to the content of the Intraoperative Record and any orders documented therein. Any exceptions are noted below.
--- NOTE | 2024-09-15 15:38 | Operative Report ---
Post Operative Report Pre & Post Diagnosis Operation Date: 09/15/24 08:20 Pre-Op Diagnosis: Fracture of right tibia and fibula Post-Op Diagnosis: Fracture of right tibia and fibula I identified the patient and participated in the time-out.: Yes Procedure Operation Date: 09/15/24 08:20 Actual Procedures p Open Reduction Internal Fixation Right Ankle(Right) - Jacobo Warren MD Surgeon Jacobo Warren MD Patient Financial Specialist RAJANI Peters PA-C. No resident or fellow was available to assist. Estimated Blood Loss 25 Findings Consistent with Post-Op Diagnosis Specimens none Description of Procedure I was present during the entire case assisting with positioning, prepping, draping, wound retraction, wound closure, dressing and splint application. No fellow present. Please see Dr. Warren procedure note for specifics of the case. I attest to the content of the Intraoperative Record and any orders documented therein. Any exceptions are noted below.
[2024-09-15] MEDS ORDERED: METOCLOPRAMIDE HCL INJ 5 MG/ML 2 ML VIAL IV PRN (15:41)
[2024-09-15] MEDS ORDERED: HYDROmorphone INJ 0.5 MG/0.5 ML SYR IV PRN (15:41)
[2024-09-15] MEDS ORDERED: NALOXONE HCL 0.4 MG/1 ML VIAL/CARP IV PRN (15:41)
[2024-09-15] MEDS ORDERED: MAGNESIUM HYDROXIDE SUSP 30 ML UDC PO PRN (15:41)
[2024-09-15] MEDS ORDERED: diphenhydrAMINE 50 MG/ML VIAL IV PRN (15:41)
[2024-09-15] MEDS ORDERED: bisacodyL 10 MG SUPP PR PRN (15:41)
--- NOTE | 2024-09-15 15:57 | Hospitalist Progress Note ---
Date of Service September 15, 2024 Assessment & Plan (1) Fracture of right tibia and fibula: Plan 78-year-old female PMHx hypokalemia, HLD, HTN, and prior TIA presenting s/p mechanical fall now complaining of R ankle pain. #Fracture of R tibia and fibula/Medial malleolus- Presenting after rolling ankle when trying to get into the car, landing on her R ankle and falling to ground. Orthopedic consulteds/p ORIF of right ankle with Dr. Warren 09/15 she will likely be nonweightbearing on her right foot for at least 2 to 4 weeks Right ankle x-ray: Displaced oblique fracture line at distal diaphysis lateral fibula, vertical fracture line lateral aspect distal tibia, soft tissue swelling lateral subcutaneous tissue Right lower extremity CT: Mildly displaced acute traumatic oblique fracture distal fibula, small acute traumatic avulsion fracture medial malleolus CBC without leukocytosis, BMP stable On Plavix and aspirin outpatientwill resume when able Pain management: Tylenol/Dilaudid as needed AM CBC, BMP, Vitamin D level #HLD- Rosuvastatin - continue #HTN- Losartan - continue #H/o TIA- Aspirin, Plavix - will resume when able #Sleep- Trazodone - continue Dispo: Admit, med/sx VTE Prophylaxis: SCDs pending surgical intervention Admission and Anticipated Discharge Date Admission Date: September 14, 2024 Ken Salter was seen this morning at bedside. She reported to be feeling okay today. She did have some pain in her right ankle. she states she has not beared weight on this since she fell. Physical Exam Physical Exam: General: no acute distress; non-toxic appearing; well-nourished; cooperative HEENT: normocephalic, atraumatic; no scleral icterus; PERRLA w/ EOMs intact; vision and hearing grossly intact Skin: warm, dry without signs of tenting; no cyanosis; no rashes, bruising, lesions, or erythema noted Lungs: no acute respiratory distress; symmetrical chest wall expansion MSK: R leg in MADDY wrap; no edema noted in the LEs b/l, nonerythematous Neuro: A&Ox3; normal mood and affect; fluent speech; no focal deficits Results & Data Results & Data Vital Signs (Past 12 Hours) Vital Signs Temp Pulse Pulse Resp BP BP Pulse Ox 09/15/24 15:45 87 19 160/66 H 100 09/15/24 15:37 36.0 C L 89 16 145/74 H 97 09/15/24 13:31 36.7 C 71 18 156/69 H 98 09/15/24 08:12 36.7 C 69 17 148/78 H 96 09/15/24 07:15 O2 Del Method O2 Flow Rate 09/15/24 15:45 Oxymask 6 09/15/24 15:37 Oxymask 6 09/15/24 13:31 Room Air 09/15/24 08:12 Room Air 09/15/24 07:15 Room Air PG Care Time/CCT Total # of Minutes Spent Total Time Spent with Patient: Total time spent is greater than 50% in coordination of care (as documented) at patient's floor/unit and/or counseling patient: Coding Level of Care Code 58678 SUB INP/OBS CARE 2/35MIN Diagnoses Fracture of right tibia and fibula S82.201A; S82.401A
[2024-09-15] MEDS: SODIUM CHLORIDE 0.9% 1,000 ML IV SCH (16:30)
--- NOTE | 2024-09-15 16:34 | Anesthesiology Progress Note ---
Date of Service September 15, 2024 Anesthesia Post Procedure Vital Signs Vital Signs: Temp Pulse Pulse Pulse Resp BP BP 09/15/24 16:05 36.4 C L 84 17 145/64 H 09/15/24 15:55 84 11 L 154/67 H 09/15/24 15:45 87 19 160/66 H 09/15/24 15:37 36.0 C L 89 16 145/74 H 09/15/24 13:31 36.7 C 71 18 156/69 H 09/15/24 08:12 36.7 C 69 17 148/78 H 09/15/24 07:15 09/14/24 21:00 36.6 C 68 18 169/68 H 09/14/24 19:00 74 18 124/69 09/14/24 17:16 67 18 126/73 Pulse Ox O2 Del Method O2 Flow Rate 09/15/24 16:05 95 Room Air 09/15/24 15:55 100 Oxymask 4 09/15/24 15:45 100 Oxymask 6 09/15/24 15:37 97 Oxymask 6 09/15/24 13:31 98 Room Air 09/15/24 08:12 96 Room Air 09/15/24 07:15 Room Air 09/14/24 21:00 95 Room Air 09/14/24 19:00 96 Room Air 09/14/24 17:16 98 Room Air Pain Intensity Ankle: Pain Intensity: 10 Transfer of Care Handoff Completed per policy Notes Mental Status: alert / awake / arousable Patient Amnestic to Procedure: Yes Nausea / Vomiting: adequately controlled Pain: adequately controlled Airway Patency, RR, SpO2: stable & adequate BP & HR: stable & adequate Hydration State: stable & adequate Anesthetic Complications: no major complications apparent
[2024-09-15] MEDS: ceFAZolin 2000MG 2,000 MG/15 ML SYR IV SCH ×2 (16:42→21:14)
[2024-09-15] MEDS: ceFAZolin 2,000 MG/15 ML IV PUSH IV ONE (16:42)
[2024-09-15] MEDS: TRANEXAMIC ACID / 0.7% NACL 1000MG/100ML BAG IV ONE (16:43)
--- NOTE | 2024-09-15 17:17 | Electrocardiogram Report ---
Test Reason : Blood Pressure : */* mmHG Vent. Rate : 66 BPM Atrial Rate : 66 BPM P-R Int : 178 ms QRS Dur : 92 ms QT Int : 430 ms P-R-T Axes : 58 -23 26 degrees QTcB Int : 450 ms Normal sinus rhythm Normal ECG When compared with ECG of 25-Oct-2023 02:25, NC interval has decreased Confirmed by Isaac George ([id number]) on 09/15/2024 5:17:12 PM Referred By: REFERRED SELF Confirmed By: Isaac George
--- OUTSIDE RECORDS SUMMARY | 2024-09-15 19:10 | External Medical Summary | Continuity of Care Document ---
Author Name Unknown Organization [address] [place] [phone] Care Team Providers Care Manager Mail Name Role Phone Marcellus Perez Primary Care Physician [phone] Encounter [facility] [id number] Date(s): 08/17/24 - 08/17/24 [facility] [address] [facility] 207 [facility] [address] [address] [place] [phone] Encounter Diagnosis H/O: CVA (cerebrovascular accident)(Discharge Diagnosis) - 08/17/24 Depression(Discharge Diagnosis) - 08/17/24 HTN (hypertension)(Discharge Diagnosis) - 08/17/24 Hyperlipidemia(Discharge Diagnosis) - 08/17/24 Leg numbness(Discharge Diagnosis) - 08/17/24 Knee pain(Discharge Diagnosis) - 08/17/24 Anesthesia of skin(Final) - Essential (primary) hypertension(Final) - Pain in unspecified knee(Final) - Discharge Disposition: Home or Self Care Attending Physician: MD Perez Dongsheng Encounter Type: Clinic Allergies, Adverse Reactions, Alerts Substance Criticality Severity Reaction Reaction Severity Status lisinopril cough Active amLODIPine leg swelling Active Assessment and Plan Extracted from: Title:Office Visit Note Author:MD Perez Dongsh eng Date:08/17/24 1. H/O: CVA (cerebrovascula r accident) STATUS: Chronic stable: x DATA: Review of prior external note(s) from each unique source: Review of the result(s) of each unique test: x flp, cmp Ordering of each unique test: GOAL: prevention/LDL<70 PLAN: continue ASA, Crestor, and plavix. Avoid NSAIDs. nondrinker. Referred back to neurology - declined. Fall prevention. 2. Depression STATUS: Chronic, uncontrolled DATA: Labs reviewed:TSH GOAL: Resolution PLAN: Lexapro - did not help. stopped Mirtazapine. increase Trazodone to 100mg. exercise. relaxation 3. HTN (hypertension) STATUS: Chronic stable: x DATA: Review of prior external note(s) from each unique source: Review of the result(s) of each unique test: x cmp Ordering of each unique test: Assessment requiring independent historian(s): GOAL: BP <140/90 PLAN: Home BP. continue Losartan. DASH and exercise. 4. Hyperlipidemia STATUS: Chronic stable: x at [facility] DATA: Review of prior external note(s) from each unique source: Review of the result(s) of each unique test: x flp Ordering of each unique test: GOAL: prevent ASCVD/LDL<70 PLAN: continue Crestor. WT loss. Diet and exercise. 5. Leg numbness STATUS: Chronic stable: Chronic uncontrolled: x Acute uncomplicated: Acute illness with systemic symptoms: Undiagnosed new problems with uncertain prognosis: Chronic illnesses with exacerbation, progression, or side effects of treatment: 1 acute complicated injury: DATA: Review of prior external note(s) from each unique source: Review of the result(s) of each unique test: Ordering of each unique test: Assessment requiring independent historian(s): GOAL: Resolution PLAN: ordered cbc, ferritin, cmp, tsh, cpk, vit D 6. Knee pain STATUS: Chronic stable: Chronic uncontrolled: Acute uncomplicated: Acute illness with systemic symptoms: Undiagnosed new problems with uncertain prognosis: x Chronic illnesses with exacerbation, progression, or side effects of treatment: 1 acute complicated injury: DATA: Review of prior external note(s) from each unique source: Review of the result(s) of each unique test: Ordering of each unique test: Assessment requiring independent historian(s): GOAL: Resolution PLAN: XR ordered call prn. f/u 2 wks Immunizations Given and Recorded Vaccine Date Status Refusal Reason pneumococcal 23-valent vaccine 08/27/15 Given tetanus/diphtheria/pertuss, acel (Tdap) 28/12 G iven Medications aspirin 81 mg oral delayed release tablet Start: 12/02/23 8:26:00 AM EDT, 1 tab, PO, Daily Start Date: 12/02/23 Status: Ordered Repeat number: 1 azelaic acid 15% topical gel Start: 12/02/23 8:59:00 AM EDT, 1 appl, topical, bid, Disp# 50 g, apply a thin film to affected areaon face after washing, Pharmacy: [id number] Start Date: 12/02/23 Status: Ordered Quantity: 50.0 Unit: g Repeat number: 1 clopidogrel 75 mg oral tablet Start: 07/27/24 8:35:00 AM EDT, 1 tab, PO, Daily, Disp# 90 tab, Refills: 0, Pharmacy: [facility] Start Date: 07/27/24 Status: Ordered Quantity: 90.0 Unit: tab Repeat number: 1 Coenzyme Q10 200 mg oral capsule Start: 09/20/21 10:12:00 AM EDT, See Instructions, Disp# 30 cap, 1 tab PO Daily, other Start Date: 09/20/21 Status: Ordered Quantity: 30.0 Unit: cap Repeat number: 1 Crestor 20 mg oral tablet Start: 11/16/23 2:14:00 PM EDT, 1 tab, PO, qhs, Disp# 90 tab, Refills: 3, Pharmacy: [facility] Start Date: 11/16/23 Stop Date: 11/10/24 Status: Ordered Quantity: 90.0 Unit: tab Repeat number: 4 Finacea 15% topical gel Start: 01/26/24 9:53:00 AM EDT, 1 appl, topical, bid, Disp# 50 g, wash hands immediately after application apply a thin film to affected area after washing, Note to Pharmacy: dispense generic, Pharmacy: [facility] Start Date: 01/26/24 Status: Ordered Quantity: 50.0 Unit: g Repeat number: 1 losartan 100 mg oral tablet Start: 07/27/24 8:35:00 AM EDT, 1 tab, PO, Daily, Disp# 90 tab, Refills: 0, Pharmacy: [facility] Start Date: 07/27/24 Status: Ordered Quantity: 90.0 Unit: tab Repeat number: 1 Shingrix intramuscular injection Start: 04/01/23 8:51:00 AM EST, 0.5 mL, IM, ONCE, Disp# 0.5 mL, Refills: 1, repeat dose in 2 to 6 months, Pharmacy: [id number] Start Date: 04/01/23 Status: Ordered Quantity: 0.5 Unit: mL Repeat number: 2 Tetanus toxoids-Diphtheria, Adult (Td) 2 units-2 units/0.5 mL intramuscular suspension Start: 04/01/23 8:51:00 AM EST, 0.5 mL, IM, ONCE, Disp# 0.5 mL, Note to Pharmacy: okay to do TDaP if TD is not available, Pharmacy: [id number] Start Date: 04/01/23 Status: Ordered Quantity: 0.5 Unit: mL Repeat number: 1 traZODone 100 mg oral tablet Start: 03/28/24 8:56:00 AM EST, 1 tab, PO, qhs, Disp# 30 tab, Refills: 5, Pharmacy: [id number] Start Date: 03/28/24 Stop Date: 09/24/24 Status: Ordered Quantity: 30.0 Unit: tab Repeat number: 6 triamcinolone 0.5% topical ointment Start: 12/23/21 10:13:00 AM EDT, 1 appl, topical, bid, Disp# 15 g, to affected area on left shoulder, Pharmacy: [facility] Start Date: 12/23/21 Status: Ordered Quantity: 15.0 Unit: g Repeat number: 1 Vitamin B6 25 mg oral tablet Start: 02/27/22 11:18:00 AM EDT, 1 tab, PO, Daily, Disp# 30 tab, Try for 2 weeks then stop if it does not help, other Start Date: 02/27/22 Status: Ordered Quantity: 30.0 Unit: tab Repeat number: 1 Vitamin D3 2000 intl units oral tablet Start: 04/16/18 2:21:00 PM EST, 1 tab, PO, Daily, Disp# 100 tab, other Start Date: 04/16/18 Status: Ordered Quantity: 100.0 Unit: tab Repeat number: 1 Mental Status 08/17/24 Barriers to Learning one year None evide nt Mandatory Health Literacy Documentation Yes Health Literacy Communication Barriers N ever Primary Language Honduran Problem List Condition Confirmation Course Effective Dates Status H ealth Status Informant DJD (degenerative joint disease) of cervical spine Confirmed Active Depression Confirmed Active Flank pain Confirmed Active H/O: CVA (cerebrovascular accident) Confirmed Active History of TIA (transient ischemic attack) Confirmed Active Hyperlipidemia Confirmed Active HTN (hypertension) Confirmed 11/10/11 Active HTN (hypertension) Confirmed Active IFG (impaired fasting glucose) Confirmed Active Insomnia, unspecified Confirmed 12/11/11 Active LFT elevation Confirmed Active Neck pain Confirmed Active Obesity Confirmed Active Osteopenia Confirmed Active Prediabetes Confirmed Active Rosacea, acne Confirmed Active Age related osteoporosis Confirmed Active Shoulder pain Confirmed Active Weight disorder Confirmed Active Diagnosis Diagnosis Type Effective Dates Health Status Clinical Service Informant Depression Discharge Diagnosis 08/17/24 Non-Specified Hyperlipidemia Discharge Diagnosis 08/17/24 Non-Specified H/O: CVA (cerebrovascular accident) Discharge Diagnosis 08/17/24 Non-Specified HTN (hypertension) Discharge Diagnosis 08/17/24 Non-Specified Leg numbness Discharge Diagnosis 08/17/24 Non-Specified Knee pain Discharge Diagnosis 08/17/24 Non-Specified Procedures Procedure Date Related Diagnosis Body Site [...] otherwise without abnormality Repeat in 10 years Results Laboratory List Name Date Complete Blood Count w Differential (CBC ,DIFFH) 08/17/24 Comprehensive Metabolic Panel (COMP META B PANEL) 08/17/24 Creatine Kinase, Total (CK) 08/17/24 Ferritin (FERRITIN) 08/17/24 Parathyroid Hormone, Intact (PTH, INTACT ) 08/17/24 Thyroid Stimulating Hormone (TSH) 5 Vitamin D, 25-Hydroxy Level, Total (25-H YDROXY VITAMIN D) 08/17/24 Most recent to oldest [Reference Range]: 1 eGFR CKD-EPI [>60 mL/min/1.73 m2] 76 mL/ min/1.73 m2 (08/17/24 1:23 PM) Vitamin D, 25-Hydroxy [30-100 ng/mL] 34 ng/mL 1 (08/17/24 1:23 PM) Estimated CrCl 60.83 mL/min (08/17/24 1:23 PM) MPV [9.0-12.2 fL] 10.1 fL (08/17/24 1:23 PM) Immature Gran% 0.4 % (08/17/24 1:23 PM) Neut% 51.4 % (08/17/24 1:23 PM) Lymph% 35.3 % (08/17/24 1:23 PM) Chilton% 9.0 % (08/17/24 1:23 PM) Baso% 0.9 % (08/17/24 1: PM) Eos% 3.0 % (08/17/24 1: PM) Immat Gran, Abs [0-0.4 K/uL] 0.02 K/uL (08/17/24 1:23 PM) Neut, Abs [2.0-7.7 K/uL] 2.39 K/uL (08/17/24 1:23 PM) Lymph, Abs [1.0-3.4 K/uL] 1.64 K/uL (08/17/24 1: PM) Chilton, Abs [0-1.0 K/uL] 0.42 K/uL (08/17/24 1:23 PM) Baso, Abs [0-0.1 K/uL] 0.04 K/uL (08/17/24 1:23 PM) Eos, Abs [0-0.5 K/uL] 0.14 K/uL (08/17/24 1:23 PM) Type of Diff: AUTO *Unknown* (08/17/24: PM) RDW [11.5-14.2 %] 13.9 % (08/17/24: PM) Anion Gap [5-14 mmol/L] 8 mmol/L (08/17/24 1: PM) Alb [3.5-5.2 g/dL] 4.1 g/dL (08/17/24: PM) Alk Phos [35-115 unit/L] 98 unit/L 2 (08/17/24: PM) ALT [0-33 unit/L] 15 unit/L (08/17/24 1: PM) AST [0-32 unit/L] 21 unit/L (08/17/24 1: PM) BUN [6-23 mg/dL] 18 mg/dL (08/17/24 1:23 PM) Ca [8.4-10.2 mg/dL] 9.7 mg/dL (08/17/24 1:23 PM) CPK [26-192 unit/L] 437 unit/L *HI* (08/17/24 1: PM) Cl- [98-107 mmol/L] 107 mmol/L (08/17/24: PM) HCO3 [22-29 mmol/L] 29 mmol/L (08/17/24: PM) Cret [0.60-1.00 mg/dL] 0.78 mg/dL (08/17/24: PM) Ferritin [13.0-150.0 ng/mL] 89.8 ng/mL (08/17/24: PM) Glu [74-109 mg/dL] 111 mg/dL 3 *HI* (08/17/24: PM) Hct [35-44 %] 45.1 % *HI* (08/17/24: PM) Hgb [11.7-15.0 g/dL] 14.5 g/dL (08/17/24: PM) PTH Intact [15.0-65.0 pg/mL] 57.0 pg/mL (08/17/24: PM) K [3.5-5.1 mmol/L] 4.6 mmol/L (08/17/24: PM) MCH [28-33 pg] 30.5 pg (08/17/24: PM) MCHC [32-36 g/dL] 32.2 g/dL (08/17/24: PM) MCV [81-96 fL] 94.7 fL (08/17/24: PM) Na [136-145 mmol/L] 144 mmol/L (08/17/24: PM) Plts [150-350 K/uL] 189 K/uL (08/17/24:23 PM) RBC [3.90-5.00 M/uL] 4.76 M/uL (08/17/24: PM) T Bili [0.0-1.2 mg/dL] 0.4 mg/dL (08/17/24: PM) Prot [6.4-8.3 g/dL] 6.8 g/dL (08/17/24: PM) TSH [0.30-4.20 uIU/mL] 1.52 uIU/mL (08/17/24 1:23 PM) WBC [4.0-10.4 K/uL] 4.65 K/uL (08/17/24 1:23 PM) 1Result Comment: Deficiency: <20 ng/mL Insufficiency: 21-29 ng/mL Sufficiency: 30-100 ng/mL Potenial Toxicity: >150 ng/mL 2Result Comment: Low levels of ALKP may indicate a deficiency in zinc, magnesium, or malnutritionbutcan also be an indicator of a rare genetic disease hypophosphatasia (HPP). 3Result Comment: ADA recommendation for FASTING Serum/Plasma Glucose: Normal: 70-100 mg/dL Prediabetes: 100-125 mg/dL Diabetes: 126 mg/dL or higher Vital Signs Most recent to oldest [Reference Range]: 1 Heart Rate 66 bpm (08/17/24 12:50 PM) Respiratory Rate 18 br/min (08/17/24 12:50 PM) Blood Pressure 128/76mmHg (08/17/24 12:50 PM) Cuff Pulse Pressure 52 mmHg (08/17/24 12:50 PM) Social History Social History Type Response Smoking Status Never smoked cigaret horace Sex Female Sex Representation Female (finding) FCM Outpt Note * [facility], [facility] PERFORM Event Display: FCM Outpt Note Authored Date: [id number] Chief Complaint Discuss Numbness in legs and knees. History of Present Illness CVA: on meds. doing well. no headache. MDD: on trazodone. stable HLD: on statin. no muscle aches HTN: on med. still no home bp check. no dizzy. leg pain: b/l. below the kneed. for yrs. constant. not worse at night. mostly numbness. does not bother sleep. Feet are not involved Fell at home 2 mos ago, on R knee. still some pain on patella. Review of Systems No fever/chills. No headache. No respiratory symptoms. No chest pain/shortness of breath. No nausea/vomiting. No abdominal pain. No change with bowels. No urinary symptoms. No bleeding. Other systems reviewed and are neg. Physical Exam Vitals & Measurements HR: 66 (Monitored) RR: 18 BP: 128/76 SpO2: 97% PHQ2 Data (Data Documented on:08/17/2024 12:47) Emotional health assessment NEGATIVE General: No acute distress. Nontoxic. Head: Normocephalic, Atraumatic. Eyes: Pupils are equal, round Normal conjunctiva. Neck: Supple, Non-tender, No thyromegaly Respiratory: Lungs are clear to auscultation, Respirations non-labored, Breath sounds equal MARCIA. Cardiovascular: Normal rate, Regular rhythm, No murmur, Rubs, gallops. Gastrointestinal: Soft, Non-tender, Non-distended, Normal bowel sounds. Musculoskeletal: no pitting edema, no calf or patella tenderness Integumentary: No rashes Neurologic: Alert, Oriented, No focal deficits. Psychiatric: Cooperative, Appropriate mood & affect. Assessment/Plan 1. H/O: CVA (cerebrovascular accident) STATUS: • Chronic stable: x DATA: • Review of prior external note(s) from each unique source: • Review of the result(s) of each unique test: x flp, cmp • Ordering of each unique test: GOAL: prevention/LDL<70 PLAN: continue ASA, Crestor, and plavix. Avoid NSAIDs. nondrinker. Referred back to neurology - declined. Fall prevention. 2. Depression STATUS: Chronic, uncontrolled DATA: Labs reviewed:TSH GOAL: Resolution PLAN: Lexapro - did not help. stopped Mirtazapine. increase Trazodone to 100mg. exercise. relaxation 3. HTN (hypertension) STATUS: • Chronic stable: x DATA: • Review of prior external note(s) from each unique source: • Review of the result(s) of each unique test: x cmp • Ordering of each unique test: • Assessment requiring independent historian(s): GOAL: BP <140/90 PLAN: Home BP. continue Losartan. DASH and exercise. 4. Hyperlipidemia STATUS: • Chronic stable: x at [facility] DATA: • Review of prior external note(s) from each unique source: • Review of the result(s) of each unique test: x flp • Ordering of each unique test: GOAL: prevent ASCVD/LDL<70 PLAN: continue Crestor. WT loss. Diet and exercise. 5. Leg numbness STATUS: • Chronic stable: • Chronic uncontrolled: x • Acute uncomplicated: • Acute illness with systemic symptoms: • Undiagnosed new problems with uncertain prognosis: • Chronic illnesses with exacerbation, progression, or side effects of treatment: • 1 acute complicated injury: DATA: • Review of prior external note(s) from each unique source: • Review of the result(s) of each unique test: • Ordering of each unique test: • Assessment requiring independent historian(s): GOAL: Resolution PLAN: ordered cbc, ferritin, cmp, tsh, cpk, vit D 6. Knee pain STATUS: • Chronic stable: • Chronic uncontrolled: • Acute uncomplicated: • Acute illness with systemic symptoms: • Undiagnosed new problems with uncertain prognosis: x • Chronic illnesses with exacerbation, progression, or side effects of treatment: • 1 acute complicated injury: DATA: • Review of prior external note(s) from each unique source: • Review of the result(s) of each unique test: • Ordering of each unique test: • Assessment requiring independent historian(s): GOAL: Resolution PLAN: XR ordered call prn. f/u 2 wks Problem List/Past Medical History Ongoing Age related osteoporosis Degenerative joint disease of knee| Status: Inactive Depression DJD (degenerative joint disease) of cervical spine Flank pain H/O: CVA (cerebrovascular accident) History of TIA (transient ischemic attack) HTN (hypertension) HTN (hypertension) Hyperlipidemia IFG (impaired fasting glucose) Insomnia, unspecified LFT elevation Neck pain Obesity Osteopenia Prediabetes Rosacea, acne Shoulder pain TRANSIENT ISCHEMIC ATTACK. Weight disorder Resolved Hemorrhoids Hx of hypokalemia Procedure/Surgical History •CT of abdomen and pelvis with IV contrast| Service Date: 05/11/2022•DEXA (dual energy X-ray absorptiometry) of lateral spine| Service Date: 07/19/2021•CT of head| Service Date: 07/13/2021•Cataract surgery| Service Date: 2019•MRI of brain without contrast| Service Date: 06/30/2018•Carotid artery doppler| Service Date: 06/30/2018•Radiography of shoulder (procedure)| Service Date: 06/21/2018•Plain chest X-ray (procedure)| Service Date: 06/21/2018•Computed tomography of head without contrast (procedure)| Service Date: 06/21/2018•12 lead ECG (regime/therapy)| Service Date: 06/04•Plain chest X-ray (procedure)| Service Date: 06/18/2018•Computed tomography of head without contrast (procedure)| Service Date: 06/18/2018•12 lead ECG (regime/therapy)| Service Date: 06/18/2018•Plain chest X-ray (procedure)| Service Date: 05/16/2018•CT of abdomen and pelvis without contrast| Service Date: 05/16/2018•12 lead ECG (regime/therapy)| Service Date: 05/16/2018•Forearm DEXA scan T score| Service Date: 12/15/2017•Excision| Service Date: 09/18/2016•XR Left Ankle|Service Date: 02/07/2013•XR Left Tibia and Fibula| Service Date: 02/07/2013•XR Foot Left| Service Date: 02/07/2013•Colonoscopy - repeat in 10 years| Service Date: 09/03/2006 Medications aspirin(aspirin 81 mg oral delayed release tablet), 81 mg= 1 tab, PO, Daily azelaic acid topical(Finacea 15% topical gel), 1 appl, topical, bid azelaic acid topical(azelaic acid 15% topical gel), 1 appl, topical, bid cholecalciferol(Vitamin D3 2000 intl units oral tablet), 2000 Int_Unit= 1 tab, PO, Daily clopidogrel(clopidogrel 75 mg oral tablet), 1 tab, PO, Daily losartan(losartan 100 mg oral tablet), 1 tab, PO, Daily pyridoxine(Vitamin B6 25 mg oral tablet), 25 mg= 1 tab, PO, Daily rosuvastatin(Crestor 20 mg oral tablet), 20 mg= 1 tab, PO, qhs, 3 refills tetanus toxoids-diphtheria, Td (Adult)(Tetanus toxoids-Diphtheria, Adult (Td) 2 units-2 units/0.5 mL intramuscular suspension), 0.5 mL, IM, ONCE traZODone(traZODone 100 mg oral tablet), 100 mg= 1 tab, PO, qhs, 5 refills triamcinolone topical(triamcinolone 0.5% topical ointment), 1 appl, topical, bid ubiquinone(Coenzyme Q10 200 mg oral capsule), See Instructions zoster vaccine, inactivated(Shingrix intramuscular injection), 0.5 mL, IM, ONCE, 1 refills Allergies amLODIPine leg swelling lisinopril cough Social History Smoking Status Never smoked cigarettes Alcohol - Denies Alcohol Use Employment/School Status:Retired Description:cleaning Home/Environment - Low Risk Nutrition/Health - Medium Risk Other Details: Sexual - No Risk Substance Abuse - No Risk Tobacco - Denies Tobacco Use Intake (IView) Smoking History Cigarette smoker: Never smoked cigarettes Tobacco Product Use: Never used other tobacco products Family History Diabetes mellitus type 2: Mother and Sister. Health Status Family Member(s) Immunizations Vaccine Date Status pneumococcal 23-valent vaccine 08/27/2015 Given tetanus/diphtheria/pertuss, acel (Tdap) 06/11/2011 Given Recommendations Health Maintenance Pending (in the next year) OverDue Medicare Annual Wellness Visit due 04/24/22 and every 1 year Falls Plan of Care due 09/20/22 and every 1 year Adult Influenza Vaccine due 11/02/23 and every 1 year Due Adult Social Determinants of Health Screening due 08/17/24 Unknown Frequency Adult Tdap/Td Vaccine due 08/17/24 Unknown Frequency Body Mass Index due 08/17/24 Unknown Frequency Pneumococcal Vaccine Older Adults due 08/17/24 One-time only Seasonal COVID 19 Vaccine due 08/17/24 Unknown Frequency Shingles Vaccine due 08/17/24 One-time only Satisfied (in the past 1 year) Satisfied Lipid Screening on 11/25/23. Satisfied by Contributor_system, [employer] Electronic Signature on File Electronically Reviewed/Signed by: Marcellus Perez MD Author Signature Dt/Tm:08/17/2024 01:14 PM Department of Family Medicine DJ Patient Care team information Care Team Personnel Name: MD Perez Dongsheng Position: Physician - Family Med Member Role: Primary Care Provider Address: [address] [place] [address] Telecom: [phone] Care Team Related Persons Name: SHANNON BADILLO Insurance Providers Guarantor name: ARCHANA VALLE Health Plan Information #: 1 Payer: [employer] Member Number: [id number] Policy Number: NA Group Number: [id number] Payer Identifier: [id number] Health Plan Information #: 2 Payer: [employer] Member Number: [id number] Policy Number: NA Group Number: [id number] Payer Identifier: [id number]"
[2024-09-15] MEDS: oxyCODONE HCL 10 MG TABCR (OxyCONTIN) PO SCH (21:13)
[2024-09-15] MEDS: SENNA 8.6 MG TAB PO SCH (21:13)
[2024-09-15] MEDS: DOCUSATE SODIUM 100 MG CAP PO SCH (21:13)
[2024-09-16] MEDS: CLOPIDOGREL BISULFATE 75 MG TAB PO SCH (08:11)
[2024-09-16] MEDS: ASPIRIN 81 MG ECTAB PO SCH (08:11)
[2024-09-16] MEDS: MULTIVITAMIN TAB PO SCH (08:11)
[2024-09-16] MEDS: CHOLECALCIFEROL 25 MCG (1000 UNITS) TAB PO SCH (08:11)
[2024-09-16] MEDS: dexAMETHasone 10 MG in SYRINGE 0 ML IV SCH (08:12)
[2024-09-16 08:36] LABS: Hematocrit (blood only) 37.7 % (37.0-47.0); Hemoglobin 12.6 g/dl (12.0-16.0); Mean Corpuscular Hemoglobin 30.4 pg (25.0-34.0); Mean Corpuscular Hgb Conc 33.4 g/dL (32.0-36.0); Mean Corpuscular Volume 91.1 fL (80.0-100.0); Mean Platelet Volume 9.9 fL (9.4-12.4); Platelet Count 164 K/uL (130-400); RDW Coefficient of Variation 14.5 % (11.5-14.5); RDW Standard Deviation 48.8 fL (36.4-46.3); Red Blood Count 4.14 M/uL (4.20-5.40); White Blood Count 7.22 K/ul (4.8-10.8)
[2024-09-16] MEDS ORDERED: RED BEET PO SCH (09:00)
[2024-09-16 09:01] LABS: BUN Creatinine Ratio 21.6 (10-20); Creatinine Clr Calc Pharmacy 56.5 ml/min; Potassium 4.5 mmol/L (3.5-5.1)
--- NOTE | 2024-09-16 10:01 | Orthopedic Progress Note ---
Date of Service September 16, 2024 Assessment & Plan (1) Fracture of distal end of fibula: Plan: Nonweightbearing on right lower extremity with walker assistance PT/OT Pain control with p.o. medication DVT prophylaxis with aspirin and Plavix Ice with easy wrap Keep splint in place Case management to eval for placement for rehab Follow-up at [facility] orthopedics in 2 weeks With questions contact our clinic at [phone] Admission and Anticipated Discharge Date Admission Date: September 14, 2024 Subjective This 78-year-old female seen this morning day 1 status post right ankle open reduction internal fixation. Patient states she is doing very well. She states that she has no pain. She states she still has some numb tingly sensation in the toes of her foot but he is able to wiggle them. She is able to flex her knee beyond 90 degrees and perform an active straight leg raise test without issue. She states that her splint was fairly comfortable but heavy. Patient states she lives alone and is under the understanding that she will need to go to a rehab facility until they deem her safe to go home and care for herself safely. Currently she denies chest pain, shortness of breath, fever, chills, sweats, nausea, vomiting, diarrhea or difficulty voiding. Review of Systems 2 Review of Systems: All systems reviewed & are unremarkable except as noted in Subjective Physical Exam Physical Exam: Right lower extremity: Splint is clean dry intact left in place. Patient is able to perform active straight leg raise test. She is able to detect light sensation to touch in the pads of all digits. They are mobile. Knee range of motion from 0 to 90 degrees causes no discomfort. Her quad strength is 4+ out of 5. She is neurovascularly intact in the right lower extremity. Results & Data Vital Signs (Past 12 Hours) Vital Signs Temp Pulse Pulse Resp BP Pulse Ox O2 Del Method 09/16/24 07:22 36.8 C 80 80 16 146/71 H 93 Room Air 09/16/24 03:18 37.0 C 80 18 111/66 96 Room Air 09/15/24 23:18 36.8 C 98 H 18 124/62 93 Room Air Diagnostic Findings Laboratory Results WBC 7.22 K/ul (4.8-10.8) 09/16/24 07:50 RBC 4.14 M/uL (4.20-5.40) L 09/16/24 07:50 Hgb 12.6 g/dl (12.0-16.0) 09/16/24 07:50 Hct 37.7 % (37.0-47.0) 09/16/24 07:50 MCV 91.1 fL (80.0-100.0) 09/16/24 07:50 MCH 30.4 pg (25.0-34.0) 09/16/24 07:50 MCHC 33.4 g/dL (32.0-36.0) 09/16/24 07:50 RDW Std Deviation 48.8 fL (36.4-46.3) H 09/16/24 07:50 RDW Coeff of [place] 14.5 % (11.5-14.5) 09/16/24 07:50 Plt Count 164 K/uL (130-400) 09/16/24 07:50 MPV 9.9 fL (9.4-12.4) 09/16/24 07:50 Sodium 142 mmol/L (136-145) 09/16/24 07:50 Potassium 4.5 mmol/L (3.5-5.1) 09/16/24 07:50 Chloride 108 mmol/L (98-107) H 09/16/24 07:50 Carbon Dioxide 30 mmol/L (21-32) 09/16/24 07:50 Anion Gap 4 (3-11) 09/16/24 07:50 BUN 19 mg/dl (6-23) 09/16/24 07:50 Creatinine 0.88 mg/dl (0.6-1.2) 09/16/24 07:50 Est Cr Clr Drug Dosing 56.5 ml/min 09/16/24 07:50 eGFR 66.39 09/16/24 07:50 BUN/Creatinine Ratio 21.6 (10-20) H 09/16/24 07:50 Glucose 130 mg/dl (70-99(Fasting)) H 09/16/24 07:50 Calcium 9.0 mg/dl (8.6-10.3) 09/16/24 07:50 Total Bilirubin 0.6 mg/dl (0.2-1.0) 09/14/24 20:34 AST 18 U/L (13-39) 09/14/24 20:34 ALT 16 U/L (7-52) 09/14/24 20:34 Alkaline Phosphatase 86 U/L (34-104) 09/14/24 20:34 Total Protein 7.1 gm/dl (6.0-8.3) 09/14/24 20:34 Albumin 4.1 gm/dl (3.4-5.0) 09/14/24 20:34 Globulin 3.0 gm/dl (2.5-4.0) 09/14/24 20:34 Albumin/Globulin Ratio 1.4 (0.9-2) 09/14/24 20:34 25-OH Vitamin D Total 31.4 ng/ml (30-100) 09/16/24 07:[address] 09/14/24 17:37 CT RIGHT ANKLE WITHOUT CONTRAST: HISTORY: TECHNIQUE: CT of the right ankle was obtained without intravenous contrast. Coronal and sagittal reformats were created. COMPARISON: Right ankle radiographs from earlier the same day. FINDINGS: There is a mildly displaced acute traumatic oblique fracture in the distal fibula (Gary classification type B). There is a small calcific density by the medial malleolus likely representing acute traumatic avulsion fracture IMPRESSION: Mildly displaced acute traumatic oblique fracture in the distal fibula (Gary classification type B). Small acute traumatic avulsion fracture of the medial malleolus Electronically signed by Amilcar Bryant 09-14-2024 6:57 PM Ankle X-Ray 09/15/24 00:00 FL ankle RT min 3V RTN CLINICAL HISTORY: RT ANKLE ORIF COMPARISON STUDY: 09/14/2024 FLUOROSCOPY TIME: 20 seconds FLUOROSCOPY IMAGES: 4 EXPOSURE DOSE: 0.6 mGy FINDINGS: Fluoroscopy was provided for internal fixation of the distal fibula fracture. IMPRESSION: Intraoperative fluoroscopy. ACT 112: Negative or not required by law. Electronically signed by: Albino Dillon M.D. 09/15/2024 3:22 PM (1) Fracture of distal end of fibula Encounter type: initial encounter Fracture morphology: other fracture Fracture type: closed Laterality: right Qualified Code(s): S82.831A - Other fracture of upper and lower end of right fibula, initial encounter for closed fracture
--- NOTE | 2024-09-16 16:56 | Hospitalist Progress Note ---
Date of Service September 16, 2024 Assessment & Plan (1) Fracture of right tibia and fibula: Plan 78-year-old female PMHx hypokalemia, HLD, HTN, and prior TIA presenting s/p mechanical fall now complaining of R ankle pain. #Fracture of R tibia and fibula/Medial malleolus- Presenting after rolling ankle when trying to get into the car, landing on her R ankle and falling to ground. Orthopedic consulteds/p ORIF of right ankle with Dr. Warren 09/15 she will likely be nonweightbearing on her right foot for at least 2 to 4 weeks Right ankle x-ray: Displaced oblique fracture line at distal diaphysis lateral fibula, vertical fracture line lateral aspect distal tibia, soft tissue swelling lateral subcutaneous tissue Right lower extremity CT: Mildly displaced acute traumatic oblique fracture distal fibula, small acute traumatic avulsion fracture medial malleolus CBC without leukocytosis, BMP stable Resume ASA & Plavix Pain management: Tylenol/Dilaudid as needed CBC/BMP stable; Vitamin D level low normal @ 31.4 -> will start supplementation PT/OT recommending rehab #HLD- Rosuvastatin - continue #HTN- Losartan - continue #H/o TIA- Aspirin, Plavix - will resume when able #Sleep- Trazodone - continue Dispo: Admit, med/sx VTE Prophylaxis: SCDs, ASA Patient stable for discharge, pending placement. Admission and Anticipated Discharge Date Admission Date: September 14, 2024 Ken Salter was seen and examined this morning. She denied any complaints. Physical Exam Physical Exam: General: no acute distress; non-toxic appearing; well-nourished; cooperative HEENT: normocephalic, atraumatic; no scleral icterus; PERRLA w/ EOMs intact; vision and hearing grossly intact Skin: warm, dry without signs of tenting; no cyanosis; no rashes, bruising, lesions, or erythema noted MSK: RLE in MADDY wrap Neuro: A&Ox3; normal mood and affect; fluent speech; no focal deficits; sensation grossly intact in the LEs b/l Results & Data Results & Data Vital Signs (Past 12 Hours) Vital Signs Temp Pulse Pulse Resp BP Pulse Ox O2 Del Method 09/16/24 15:55 36.7 C 62 16 128/70 96 Room Air 09/16/24 11:37 37.0 C 66 16 125/62 92 Room Air 09/16/24 07:22 36.8 C 80 80 16 146/71 H 93 Room Air PG Care Time/CCT Total # of Minutes Spent Total Time Spent with Patient: Total time spent is greater than 50% in coordination of care (as documented) at patient's floor/unit and/or counseling patient: Coding Level of Care Code 96097 SUB INP/OBS CARE 2/35MIN Diagnoses Fracture of right tibia and fibula S82.201A; S82.401A
--- NOTE | 2024-09-17 14:13 | Hospitalist Progress Note ---
Date of Service September 17, 2024 Assessment & Plan (1) Fracture of right tibia and fibula: Plan 78-year-old female PMHx hypokalemia, HLD, HTN, and prior TIA presenting s/p mechanical fall now complaining of R ankle pain. #Fracture of R tibia and fibula/Medial malleolus- Presenting after rolling ankle when trying to get into the car, landing on her R ankle and falling to ground. Orthopedic consulteds/p ORIF of right ankle with Dr. Warren 09/15 she will likely be nonweightbearing on her right foot for at least 2 to 4 weeks Right ankle x-ray: Displaced oblique fracture line at distal diaphysis lateral fibula, vertical fracture line lateral aspect distal tibia, soft tissue swelling lateral subcutaneous tissue Right lower extremity CT: Mildly displaced acute traumatic oblique fracture distal fibula, small acute traumatic avulsion fracture medial malleolus CBC without leukocytosis, BMP stable Resume ASA & Plavix Pain management: Tylenol/Dilaudid as needed CBC/BMP stable; Vitamin D level low normal @ 31.4 -> continue supplements PT/OT recommending rehab #HLD- Rosuvastatin - continue #HTN- Losartan - continue #H/o TIA- Aspirin, Plavix - will resume when able #Sleep- Trazodone - continue Dispo: Admit, med/sx VTE Prophylaxis: SCDs, ASA Patient stable for discharge, pending placement. Admission and Anticipated Discharge Date Admission Date: September 14, 2024 Ken Salter was seen and examined this morning. She denied any complaints today. Physical Exam Physical Exam: General: no acute distress; non-toxic appearing; well-nourished; cooperative HEENT: normocephalic, atraumatic; no scleral icterus; PERRLA w/ EOMs intact; vision and hearing grossly intact Skin: warm, dry without signs of tenting; no cyanosis; no rashes, bruising, lesions, or erythema noted Lungs: no acute respiratory distress; symmetrical chest wall expansion MSK: Right cast in place over ankle region Neuro: A&Ox3; normal mood and affect; fluent speech; no focal deficits Results & Data Results & Data Vital Signs (Past 12 Hours) Vital Signs Temp Pulse Resp BP Pulse Ox O2 Del Method 09/17/24 07:45 36.6 C 71 18 126/72 93 Room Air PG Care Time/CCT Total # of Minutes Spent Total Time Spent with Patient: Total time spent is greater than 50% in coordination of care (as documented) at patient's floor/unit and/or counseling patient: Coding Level of Care Code 03474 SUB INP/OBS CARE 2/35MIN Diagnoses Fracture of right tibia and fibula S82.201A; S82.401A
[2024-09-18] MEDS: MAGNESIUM HYDROXIDE SUSP 30 ML UDC PO PRN (08:21)
[2024-09-18 09:05] VITALS: RESP 18
--- NOTE | 2024-09-18 14:33 | Hospitalist Progress Note ---
Date of Service September 18, 2024 Assessment & Plan (1) Fracture of right tibia and fibula: Plan 78-year-old female PMHx hypokalemia, HLD, HTN, and prior TIA presenting s/p mechanical fall now complaining of R ankle pain. #Fracture of R tibia and fibula/Medial malleolus- Presenting after rolling ankle when trying to get into the car, landing on her R ankle and falling to ground. Orthopedic consulteds/p ORIF of right ankle with Dr. Warren 09/15 she will likely be nonweightbearing on her right foot for at least 2 to 4 weeks Right ankle x-ray: Displaced oblique fracture line at distal diaphysis lateral fibula, vertical fracture line lateral aspect distal tibia, soft tissue swelling lateral subcutaneous tissue Right lower extremity CT: Mildly displaced acute traumatic oblique fracture distal fibula, small acute traumatic avulsion fracture medial malleolus CBC without leukocytosis, BMP stable Resume ASA & Plavix Pain management: Scheduled OxyContin BID (rec by ortho) CBC/BMP stable; Vitamin D level low normal @ 31.4 -> continue supplements Added Miralax daily for help w/ constipation, continue senna tabs PT/OT recommending rehab #HLD- Rosuvastatin - continue #HTN- Losartan - continue #H/o TIA- Aspirin, Plavix #Sleep- Trazodone - continue Dispo: Admit, med/sx VTE Prophylaxis: SCDs, ASA Patient stable for discharge, pending placement. Admission and Anticipated Discharge Date Admission Date: September 14, 2024 Ken Salter was seen and examined this morning. She has not had a BM yet since she was hospitalized but she is passing gas. She states she was going to go sit on the toilet for awhile. She denied any additional complaints. Physical Exam Physical Exam: General: no acute distress; non-toxic appearing; well-nourished; cooperative HEENT: normocephalic, atraumatic; no scleral icterus; PERRLA w/ EOMs intact; vision and hearing grossly intact Skin: warm, dry without signs of tenting; no cyanosis; no rashes, bruising, lesions, or erythema noted Lungs: no acute respiratory distress; symmetrical chest wall expansion MSK: R cast on RLE Neuro: A&Ox3; normal mood and affect; fluent speech; no focal deficits Results & Data Results & Data Vital Signs (Past 12 Hours) Vital Signs Temp Pulse Resp BP Pulse Ox O2 Del Method 09/18/24 09:04 36.5 C 75 18 108/64 97 Room Air PG Care Time/CCT Total # of Minutes Spent Total Time Spent with Patient: Total time spent is greater than 50% in coordination of care (as documented) at patient's floor/unit and/or counseling patient: Coding Level of Care Code 59647 SUB INP/OBS CARE 2/35MIN Diagnoses Fracture of right tibia and fibula S82.201A; S82.401A
[2024-09-18] MEDS ORDERED: POLYETHYLENE (MIRALAX) 17 GM PACK PO SCH (21:00)
[2024-09-19 07:11] LABS: BUN Creatinine Ratio 31.3 (10-20); Creatinine Clr Calc Pharmacy 62.1 ml/min
[2024-09-19] MEDS: POLYETHYLENE (MIRALAX) 17 GM PACK PO SCH (09:00)
--- NOTE | 2024-09-19 18:56 | Hospitalist Progress Note ---
Date of Service September 19, 2024 Assessment & Plan (1) Fracture of right tibia and fibula: Plan 78-year-old female PMHx hypokalemia, HLD, HTN, and prior TIA presenting s/p mechanical fall now complaining of R ankle pain. #Fracture of R tibia and fibula/Medial malleolus- Presenting after rolling ankle when trying to get into the car, landing on her R ankle and falling to ground. Orthopedic consulteds/p ORIF of right ankle with Dr. Warren 09/15 she will likely be nonweightbearing on her right foot for at least 2 to 4 weeks Right ankle x-ray: Displaced oblique fracture line at distal diaphysis lateral fibula, vertical fracture line lateral aspect distal tibia, soft tissue swelling lateral subcutaneous tissue Right lower extremity CT: Mildly displaced acute traumatic oblique fracture distal fibula, small acute traumatic avulsion fracture medial malleolus CBC without leukocytosis, BMP stable Resumed ASA & Plavix Pain management: Scheduled OxyContin BID (rec by ortho) CBC/BMP stable; Vitamin D level low normal @ 31.4 -> continue supplements Miralax daily for help w/ constipation, continue senna tabs PT/OT recommending rehab reviewed the basic metabolic panel today and it is essentially normal except for mildly elevated BUN at 25 she has CKD 3 which is stable with creatinine of 0.8 #HLD- Rosuvastatin - continue #HTN- Losartan - continue #H/o TIA- Aspirin, Plavix #Sleep- Trazodone - continue Dispo: Admit, med/sx VTE Prophylaxis: SCDs, ASA Patient stable for discharge, pending placement. Admission and Anticipated Discharge Date Admission Date: September 14, 2024 Subjective Joie doing fine she is really not having any pain in her right ankle, her mobility is improving no nausea vomiting, bowels are moving, eating fine, no chest pain or shortness of breath Physical Exam 2 Physical Exam: Last 24h vitals reviewed GEN: no acute distress, sitting in chair HEENT: pupils equal, sclerae anicteric, moist MM RESP: normal WOB, CTAB CV: reg no mrg ABD: soft/nt/nd +BT : no boudreaux SKIN: warm and dry, no generalized rashes right lower extremity is wrapped in a splint from below the knee to the toes, the toes are warm and well-perfused NEURO: AOx person, place, and situation. Face symmetric, speech normal Results & Data Results & Data Vital Signs (Past 12 Hours) Vital Signs Temp Pulse Pulse Resp BP Pulse Ox O2 Del Method 09/19/24 16:11 36.8 C 72 18 136/59 L 100 Room Air 09/19/24 08:09 37 C 75 18 134/75 95 Room Air Laboratory Results 09/16/24 07:50 09/19/24 06:25 PG Care Time/CCT Total # of Minutes Spent Total Time Spent with Patient: Total time spent is greater than 50% in coordination of care (as documented) at patient's floor/unit and/or counseling patient: Coding Level of Care Code 57198 SUB INP/OBS CARE 2/35MIN Diagnoses Fracture of right tibia and fibula S82.201A; S82.401A
--- NOTE | 2024-09-20 10:20 | Hospitalist Progress Note ---
Date of Service September 20, 2024 Assessment & Plan (1) Fracture of right tibia and fibula: Plan 78-year-old female PMHx hypokalemia, HLD, HTN, and prior TIA presenting s/p mechanical fall now complaining of R ankle pain. Right ankle xray showed Displaced oblique fracture line at distal diaphysis lateral fibula, vertical fracture line lateral aspect distal tibia, soft tissue swelling lateral subcutaneous tissue and R LE CT showed Mildly displaced acute traumatic oblique fracture distal fibula, small acute traumatic avulsion fracture medial malleolus. S/P ORIF with Dr. Warren 09/15 #Fracture of R tibia and fibula/Medial malleolus- Presenting after rolling ankle when trying to get into the car, landing on her R ankle and falling to ground. Orthopedic consulteds/p ORIF of right ankle with Dr. Warren 09/15 she will likely be nonweightbearing on her right foot for at least 2 to 4 weeks Pain management: was placed on scheduled oxycotin by Ortho - pt states this was not discussed with her, no hx of narcotic use, pain is well controlled. Will s witch to scheduled tylenol with PRN oxycodone to start to wean off narcotics. Vitamin D: 31.4 -> continue supplements Miralax daily for help w/ constipation, continue senna tabs PT/OT recommending rehab - plan for [facility], possible 09/21 #HLD- Rosuvastatin - continue #CKD3 - Cr stable #HTN- Losartan - continue #H/o TIA- Aspirin, Plavix - resumed #insomnia- Trazodone - continue Dispo: continued inpatient stay, awaiting safe discharge plan VTE Prophylaxis: SCDs, ASA Admission and Anticipated Discharge Date Admission Date: September 14, 2024 Subjective Patient seen sitting up in the chair - denies having pain throughout her entire stay. She denies narcotic pain med at home. She is unsure why she is on scheduled narcotics. has moved bowels twice. reports good appetite. Review of Systems Review of Systems: All systems reviewed & are unremarkable except as noted in Subjective Physical Exam Physical Exam: General: NAD, VS as above, sitting up in the chair Resp: normal respiratory effort, lungs clear to auscultation anteriorly CV: RRR, no murmur, Abd: normal bowel sounds, non tender, Extremities: hard cast/chemo wrap on right leg - able to wiggle toes, they are warm Neuro: A&O x3, Results & Data Results & Data Vital Signs (Past 12 Hours) Vital Signs Temp Pulse Resp BP Pulse Ox O2 Del Method 09/20/24 07:53 98.4 F 67 18 135/71 95 Room Air PG Care Time/CCT Total # of Minutes Spent Total Time Spent with Patient: Total time spent is greater than 50% in coordination of care (as documented) at patient's floor/unit and/or counseling patient: Coding Level of Care Code 11833 SUB INP/OBS CARE 05/28MIN Diagnoses Fracture of right tibia and fibula S82.201A; S82.401A
[2024-09-20] MEDS ORDERED: oxyCODONE HCL IR 5 MG TAB (IMMEDIATE RELEASE) PO PRN (10:21)
[2024-09-20] MEDS: ALUMINUM/MAGNESIUM SUSP 30 ML UDC PO PRN (11:40)
[2024-09-20] MEDS: ACETAMINOPHEN 500 MG TAB PO SCH (15:06)
[2024-09-21 07:26] VITALS: BP 140/67; PULSE 62; TEMP 98.1; O2SAT 94
--- NOTE | 2024-09-21 10:23 | Discharge Summary ---
Discharge Summary Date of Service September 21, 2024 Principal Dx & Hospital Course #1 = Principal Diagnosis (1) Fracture of right tibia and fibula: Plan #Fracture of R tibia and fibula/Medial malleolus 78-year-old female PMHx hypokalemia, HLD, HTN, and prior TIA presenting s/p mechanical fall now complaining of R ankle pain. Right ankle xray showed Displaced oblique fracture line at distal diaphysis lateral fibula, vertical fracture line lateral aspect distal tibia, soft tissue swelling lateral subcutaneous tissue and R LE CT showed Mildly displaced acute traumatic oblique fracture distal fibula, small acute traumatic avulsion fracture medial malleolus. S/P ORIF with Dr. Warren 09/15. To remain NWB for 2-4 weeks. Follow up appointment is scheduled. Continue Vit D supplements. Discharge to rehab today. Pain control: scheduled tylneol, prn oxycodone #HLD- Rosuvastatin - continue #CKD3 - Cr stable #HTN- Losartan - continue #H/o TIA- Aspirin, Plavix - resumed #insomnia- Trazodone - continue Dispo: discharge to [facility] today Admission HPI Per Admitting Provider 78-year-old female PMHx hypokalemia, HLD, HTN, and prior TIA presenting s/p mechanical fall now complaining of R ankle pain. Patient states that she was trying to get into her car and twisted her ankle at that time, causing her R ankle to roll under her and she landed on the ground. She did not hit her head or have any additional injuries. There was only thing that was time to help her and she feels as though the leg is not trying to help with move that this would not occur. Patient states that she just had home around and, did not hit her head. Otherwise has no complaints. States that her pain is very manageable at this time but she does notice a "twinge" when she moves her RLE. Denying chest pain, shortness of breath, palpitations, abdominal pain, N/V/D/C, numbness/tingling, fever/chills, LUTS, URI symptoms, syncope, weakness, or LOC. ED evaluation reveals no leukocytosis, H&H stable 14.6/42.9; CMP grossly unremarkable with chloride 108 and BUN/creatinine ratio 24.4; EKG pending; ankle XR (R) displaced oblique fracture line at distal diaphysis lateral fibula, vertical fracture line lateral aspect distal tibia, soft tissue swelling lateral subcutaneous tissue, calcaneal plantar spur; lower extremity CT (R) mildly displaced acute traumatic oblique fracture distal fibula (Gary classification type B), small acute traumatic avulsion fracture medial malleolus; provided with Tylenol 1g po in ED. Please see Dr. Moses's attestation for adjustments/additions to treatment plan. Discharge Exam General: NAD, VS as above, sitting up in the chair Resp: normal respiratory effort, lungs clear to auscultation anteriorly CV: RRR, no murmur, Abd: normal bowel sounds, non tender, Extremities: hard cast/chemo wrap on right leg - able to wiggle toes, they are warm Neuro: A&O x3, Discharge Plan Discharge Items Patient Disposition: Transfer Long Term Fac Reason For Visit: R TIB/FIB FX Discharge Diagnosis: Right Tib/Fib fracture Condition on Discharge: Good Activity: Per Instructions section Activity Comment: NWB R LE Bathing: Keep incision dry Weightbearing: Right non-weightbearing Non-emergency contact: Primary Care Provider and Surgeon Call non-emergency contact if: you have any medication questions, your pain is not controlled, your pain is unusual for you and your temperature is above 101 Follow-up/Referrals: Marcellus Perez [Primary Care Provider] - Jacobo Warren MD [Physician] - (Follow up appointment scheduled (09/30/24 @ 11:00 AM)) Diet: Heart Healthy Lexie Attending Provider Instructions: Darryl Whatley hospitalized after fall resulting in an ankle fracture. This was repaired in the OR by Dr. Rivera. Instructions form the orthopedic team below. Pain control with PRN oxycodone and scheduled tylenol. Continue bowel regimen while on narcotics. No changes to your home medications. Follow up with your PCP after discharge from [facility]. Lexie End User Consultant Provider Instructions: Nonweightbearing on right lower extremity with walker assistance PT/OT DVT prophylaxis with aspirin and Plavix Ice with easy wrap Keep splint in place Follow-up at [facility] orthopedics in [address] Warren (09/30/24 @ 11:00 AM) With questions contact our clinic at [phone] Pending Studies at Discharge: No Stand-Alone Forms: My [facility] Skilled Items Patient informed of condition?: Yes DNR: No Discharge Level of Care: Skilled Communicable Disease: No Discharge Prognosis: Stable Lines: None Urinary Catheter: No Medications and DC Order Prescriptions: New acetaminophen [Tylenol Extra Strength] 500 mg Tablet 1,000 mg PO TID 10 Days Qty: 60 0RF oxycodone 5 mg Tablet 5 mg PO Q6H PRN (Reason: pain) Qty: 12 0RF multivitamin with folic acid [Daily-Katia (with folic acid)] 400 mcg Tablet 1 tab PO QAM Qty: 30 0RF Continued cholecalciferol (vitamin D3) [Vitamin D3] 1,000 unit Capsule 2,000 unit PO QAM losartan 100 mg tablet 100 mg PO DAILY Qty: 30 0RF clopidogrel [Plavix] 75 mg tablet 75 mg PO DAILY Qty: 30 0RF trazodone 100 mg tablet 100 mg PO HS rosuvastatin 20 mg tablet 20 mg PO HS red beet 500 mg Capsule 500 mg PO DAILY aspirin 81 mg Tablet,Delayed Release (Dr/Ec) 81 mg PO QAM Qty: 30 0RF Discharge Orders: Discharge Order (Routine); Ordered 09/21/24 Ordered By: Magdalena Gutierrez Admission Data Admit Date/Time: 09/14/24 19:38 Attending Provider: Chase Arredondo Admit Provider: Ananya Moses Primary Care Provider: Marcellus Perez Other Providers: Ananya Moses; Ton Barron at [place]; [facility] Other Interventions: Discharge Summary Assessment (RN) Last Done: 09/21/24 10:51 Hospital Stay Data Consultations 09/14/24 19:34 ED Decision to Admit Stat Procedures Performed Operation Date: 09/15/24 08:20 Actual Procedures p Open Reduction Internal Fixation Right Ankle(Right) - Jacobo Warren MD Diagnostic Imagining Performed Ankle X-Ray 09/14/24 15:22 EXAM: XR ankle RT min 3V routine CLINICAL HISTORY: Ankle trauma, no prior imaging TECHNIQUE: X-ray images of the right ankle were obtained in anteroposterior (AP), lateral, and mortise projections. COMPARISON: No prior studies available for comparison. FINDINGS: Bone Structure: A mildly displaced fracture line is noticed at the distal diaphysis of the lateral fibula Also, another fracture line is noted at the lateral aspect of the distal tibia Joint Spaces: Joint spaces are normal. No evidence of joint effusion or subluxation. Soft Tissues: Soft tissue swelling is seen at the lateral subcutaneous tissue No soft tissue calcifications or foreign bodies noted. Additional Findings: Calcaneal plantar spur is noted IMPRESSION: 1. A mildly displaced oblique fracture line was noticed at the distal diaphysis of the lateral fibula. 2. Another vertical fracture line was noted at the lateral aspect of the distal tibia. 3. Soft tissue swelling in the lateral subcutaneous tissue. 4. Calcaneal plantar spur is noted. Disclaimer: A subtle bone abnormality or fracture may not be readily apparent on X-rays, thus clinical correlation and further imaging including follow-up CT, MRI, or follow-up X-rays are advised as needed. Electronically signed by Nino Ramon 09-14-2024 4:[address] 09/14/24 17:37 CT RIGHT ANKLE WITHOUT CONTRAST: HISTORY: TECHNIQUE: CT of the right ankle was obtained without intravenous contrast. Coronal and sagittal reformats were created. COMPARISON: Right ankle radiographs from earlier the same day. FINDINGS: There is a mildly displaced acute traumatic oblique fracture in the distal fibula (Gary classification type B). There is a small calcific density by the medial malleolus likely representing acute traumatic avulsion fracture IMPRESSION: Mildly displaced acute traumatic oblique fracture in the distal fibula (Gary classification type B). Small acute traumatic avulsion fracture of the medial malleolus Electronically signed by Amilcar Bryant 09-14-2024 6:57 PM Ankle X-Ray 09/15/24 00:00 FL ankle RT min 3V RTN CLINICAL HISTORY: RT ANKLE ORIF COMPARISON STUDY: 09/14/2024 FLUOROSCOPY TIME: 20 seconds FLUOROSCOPY IMAGES: 4 EXPOSURE DOSE: 0.6 mGy FINDINGS: Fluoroscopy was provided for internal fixation of the distal fibula fracture. IMPRESSION: Intraoperative fluoroscopy. ACT 112: Negative or not required by law. Electronically signed by: Albino Dillon M.D. 09/15/2024 3:22 PM Pending Results Patient Have Any Pending Studies at Discharge: No Discharge Instructions Given to Patient (Per Discharging Provider) Darryl Whatley hospitalized after fall resulting in an ankle fracture. This was repaired in the OR by Dr. Rivera. Instructions form the orthopedic team below. Pain control with PRN oxycodone and scheduled tylenol. Continue bowel regimen while on narcotics. No changes to your home medications. Follow up with your PCP after discharge from [facility]. Total Time Total Time Spent Total Time Spent (In Minutes): Time spent day of discharge 32 minutes including direct patient care, medication reconciliation, documentation, review of labs and images, and coordination of care. Coding Level of Care Code 13684 INP/OBS DISCH >30 MIN Diagnoses Fracture of right tibia and fibula S82.201A; S82.401A
--- NOTE | 2024-09-21 10:29 | Orthopedic Progress Note ---
Date of Service September 21, 2024 Assessment & Plan (1) Fracture of distal end of fibula: Plan: Continue to elevate the right lower extremity. Nonweightbearing on the right lower extremity PT OT Keep the splint clean and dry. DVT prophylaxis per the primary team. Follow-up in the orthopedics office 1 week from now for splint removal and suture removal. Admission and Anticipated Discharge Date Admission Date: September 14, 2024 Subjective Patient seen and examined on a.m. rounds. She reports that her ankle is feeling well. She denies any pain in her ankle. She says she used the knee scooter today and this went well. She says using the walker and maintaining nonweightbearing is exhausting. Physical Exam Physical Exam: On exam she is seated in a chair alert and oriented x 3 in no acute distress. Right lower extremity exam shows her splint to be fitting her well. Exposed toes are warm and well-perfused. She able to wiggle her toes without difficulty. Results & Data Vital Signs (Past 12 Hours) Vital Signs Temp Pulse Resp BP Pulse Ox O2 Del Method 09/21/24 07:25 36.7 C 62 18 140/67 94 Room Air (1) Fracture of distal end of fibula Encounter type: initial encounter Fracture morphology: other fracture Fracture type: closed Laterality: right Qualified Code(s): S82.831A - Other fracture of upper and lower end of right fibula, initial encounter for closed fracture
== END 2024-09-21 12:46 | DRG 494 ==
LOC: ED 15:16 → 3N 19:38 → SUATTDRO 19:38 → 3N 20:20
DX: I10 Essential (primary) hypertension; S82.431A Displaced oblique fracture of shaft of right fibula, initial encounter for closed fracture; Y92.481 Parking lot as the place of occurrence of the external cause; X58.XXXA Exposure to other specified factors, initial encounter; Z86.73 Personal history of transient ischemic attack (TIA), and cerebral infarction without residual deficits; E78.5 Hyperlipidemia, unspecified; S82.51XA Displaced fracture of medial malleolus of right tibia, initial encounter for closed fracture; G47.00 Insomnia, unspecified